=== PATIENT | female | born 1970 | race Caucasian/White ===

== ENCOUNTER → 2020-07-27 14:04 | Outpatient (BNVA) | payer MEDICAID, SELFPAY | PROVIDERS: Family Provider Internal Medicine; Referring Provider Family Medicine; Visit Provider Orthopaedic Surgery | DX: M17.12 Unilateral primary osteoarthritis, left knee (principal); M25.561 Pain in right knee; M25.562 Pain in left knee; G89.29 Other chronic pain | CPT/HCPCS: 73560; 73565 ==

== ENCOUNTER 2020-12-24 20:09 | Emergency (ER) | payer MEDICAID, SELFPAY ==
[2020-12-24 20:23] VITALS: BP 116/59; PULSE 90; RESP 18; TEMP 36.4; O2SAT 97; BMI 33.0
--- NOTE | 2020-12-24 20:57 | W.ED.SKABFB ---
HPI - Skin/Abscess/Foreign Bdy General: Chief complaint: Skin/Abscess/Foreign Body Stated complaint: SORES ON FEET Time Seen by Provider: 12/24/20 20:51 Source: patient Mode of arrival: ambulatory Limitations: no limitations History of Present Illness: HPI narrative: Patient is a 50-year-old female here with multiple medical complaints. History on her is difficult to follow as she often bounces from one topic to another. 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 She is concerned the infection has been dormant and is now re- activated . She has several sores and lesions throughout her entire body that she feels are MRSA lesions. She complains of left knee pain and swelling. She tells me she needs a total knee replacement. She is complaining of right ankle pain stating she has defective hardware. She complains of right shoulder pain. She is convinced she has endocarditis. 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 She has not been running fevers. She does not complain of chest pain or shortness of breath. MD complaint: lesion and other (several complaints ) Onset (ago): day(s) Tetanus up to date: unsure Location: generalized Pain Consistency: constant Relieving factors: none Exacerbating factors: none Context: none Associated symptoms: Reports arthralgias; Deny chills, fever(s), nausea or vomiting Treatments prior to arrival: none Review of Systems Const: Denies: fever(s), chills, body aches, fatigue, malaise or night sweats Eyes: Denies: change in vision Card: Denies: chest pain, palpitations, irregular heart rhythm, edema, lightheadedness, syncope, pre-syncope, dyspnea on exertion or orthopnea Resp: Denies: dyspnea GI: Denies: abdominal pain, nausea or vomiting Musc: Reports: joint pain and joint swelling; Denies: neck pain, back pain, extremity pain or extremity swelling Skin/Breast: Reports: rash, sores and new lesions Neuro: Denies: headache(s), numbness in extremities, weakness in extremities or sensory changes PFS ED PFSH: Medical History Anxiety Chronic pain Surgical History History of abdominal surgery History of ankle surgery Social History Smoking and tobacco status: current some day smoker Alcohol intake: former Physical Exam Const: COMMON NORMALS: no acute distress, patient oriented x3, alert and well nourished EXAM LIMITATIONS: other limitations (psychmotor agitation; pressured speech) GENERAL APPEARANCE: cooperative ORIENTATION/CONSCIOUSNESS: Yes awake, Yes oriented to person, Yes oriented to place and Yes oriented to time HENMT: COMMON NORMALS: normocephalic and atraumatic HEAD & SCALP: normocephalic and atraumatic Chest: COMMONS NORMALS: normal inspection of the chest and normal palpation of entire chest wall Resp: COMMON NORMALS: normal respiratory effort and clear to auscultation bilaterally AUSCULTATION: clear to auscultation bilaterally Cardio: COMMON NORMALS: regular rate and regular rhythm RATE: regular rate RHYTHM: regular rhythm OTHER: no murmur heard Extremity: OTHER: she has mild swelling to her R ankle and L knee; no redness/warmth; good ROM; no concern for septic joint Neuro: COMMON NORMALS: patient oriented x3 SENSORIUM/ORIENTATION: Yes alert, Yes oriented to person, Yes oriented to place and Yes oriented to time Psych: COMMON NORMALS: Normal thought process present APPEARANCE: Yes disheveled ATTITUDE: Yes bizarre ACTIVITY/MOTOR BEHAVIOR: Yes hyperactivity SPEECH: Yes excessive MOOD & AFFECT: Yes euthymic mood THOUGHT PROCESS: Normal thought process present THOUGHT CONTENT: Yes Normal thought content present ATTENTION/CONCENTRATION: Yes attention grossly intact MEMORY/COGNITION: Yes memory grossly intact and Yes cognition grossly intact INSIGHT: Fair insight present (Psych) JUDGEMENT: Fair judgement present (Psych) Skin: NARRATIVE SKIN EXAM: thousands of small scrapes all over patient's body-she tells me she does a lot of gardening; she has a very scabbed lesions to lower extremities; no Osler/Janeway lesions, no splinter hemorrhages, no petechiae noted Course Vital Signs: Vital signs: Vital Signs Temperature 97.5 F L 12/24/20 20:23 Pulse Rate 90 12/24/20 20:23 Respiratory Rate 18 12/24/20 20:23 Blood Pressure 116/59 12/24/20 20:23 Pulse Oximetry 97 12/24/20 20:23 MDM - Skin/Abscess/Foreign Bdy MDM Narrative: Medical decision making narrative: Patient eloped from the ED once stating she went outside to check on her . She was reluctantly allowed to go back to her room. Patient spilled her urine all over the bathroom floor. Lab apparently came and jules patient's labs however they just obtained blood cultures and did not obtain her other labs. When nurse went in to draw these patient became agitated. Patient eloped from the emergency department again. She will be charted off as an elopement. I do not note any clinical symptoms consistent with endocarditis and my suspicion for this is incredibly low. Discharge Plan Discharge Patient Disposition: Left Against Medical Advice Condition: Stable Prescriptions: No Action venlafaxine [Effexor XR] 75 mg capsule,extended release 24hr 75 mg PO QAM Qty: 30 RF: 3 zolpidem [Ambien] 10 mg tablet 10 mg PO .qhs Qty: 30 RF: 2 clonazepam 1 mg tablet 1 mg PO BID 30 Days Qty: 60 RF: 2 Referrals: Lou Abraham MD [Primary Care Provider] - Coding Level of Care Code ED Laminator [employer] for [facility]
== END 2020-12-24 23:40 | disposition left against medical advice (07) ==
PROVIDERS: Emergency Provider Physician Assistant; PCP Family Medicine
DX: L98.9 Disorder of the skin and subcutaneous tissue, unspecified (principal); F17.210 Nicotine dependence, cigarettes, uncomplicated; Z53.21 Procedure and treatment not carried out due to patient leaving prior to being seen by health care provider
CPT/HCPCS: 87040; 99281

== ENCOUNTER 2021-01-05 19:07 | Emergency (ER) | payer MEDICAID, SELFPAY ==
[2021-01-05 19:11] VITALS: BP 124/80; PULSE 78; RESP 18; TEMP 36.7; O2SAT 100; BMI 24.9
--- NOTE | 2021-01-05 19:21 | XR_ITS ---
WS: [id number] Portable AP upright chest, 01/05/2021 Clinical Data: chest pain Comparison: Portable chest, 02/01/2016. Findings: No nodules, masses or effusions are seen. The heart is normal. The pulmonary vascularity is not increased. No pneumonia or pneumothorax is seen. XR/XR chest 1V portable [id number] Impression: Negative chest.
--- NOTE | 2021-01-05 19:21 | ECG_ITS ---
[facility] Test Date: 2021-01-05 Pat Name: Katie Zuniga Department: Room: Gender: Female Card Clothier: : 1970 Requested By: Angelica William Order Number: [id number] Maikel MD: Angella Farah M.D. Measurements Intervals [place] Rate: 70 P: -1 MA: 148 QRS: 68 QRSD: 105 T: 47 QT: 414 QTc: 447 Interpretive Statements SINUS RHYTHM Compared to ECG 02/01/2016 03:30:01 No significant changes Electronically Signed On 01-06-2021 21:44:08 CDT by Angella Farah M.D. [id number]
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
[2021-01-05] MEDS: LORazepam 2 mg/mL INJ 1 mL 0.5 MG IVP (19:51)
[2021-01-05 19:53] VITALS: BP 124/80; PULSE 98; RESP 22; O2SAT 98
[2021-01-05 20:05] LABS: Basophils % 0.5 %; Eosinophils # 0.2 10^3/uL (0.0-0.8); Eosinophils % 2.8 %; Hematocrit 36.7 % (37.0-47.0); Hemoglobin 11.9 g/dL (11.5-15.3); Lymphocytes # 3.2 10^3/uL (0.8-4.8); Lymphocytes % 42.3 %; Mean Corpuscular HGB Conc 32.4 g/dL (30.0-36.0); Mean Corpuscular Hemoglobin 30.7 pg (28.0-34.0); Mean Corpuscular Volume 94.8 fL (81-99); Mean Platelet Volume 10.3 fL (7.4-10.4); Monocytes # 0.7 10^3/uL (0.2-0.9); Monocytes % 9.5 %; Neutrophils # 3.36 10^3/uL (1.8-7.7); Neutrophils % 44.8 %; Nucleated Red Blood Cells % 0 %; Platelet Count 229 10^3/cmm (130-400); Red Blood Count 3.87 10^6/uL (4.1-5.3); Red Cell Distribution Width 12.5 % (12.1-15.1); White Blood Count 7.5 10^3/uL (4.0-10.0)
[2021-01-05 20:22] LABS: Alanine Aminotransferase 15 U/L (0-33); Albumin Level 4.1 g/dL (3.5-5.2); Alkaline Phosphatase 84 IU/L (35-105); Anion Gap 11.8 (5-19); Aspartate Amino Transferase 17 U/L (0-32); Blood Urea Nitrogen 16 mg/dL (6-20); Calcium 8.1 mg/dL (8.5-10.5); Carbon Dioxide 27 mmol/L (22-29); Chloride 100 mmol/L (98-107); Globulin 2.7 g/dL (1.3-4.6); Glomerular Filtration Rate 89.3 mL/min (90-130); Glucose 103 mg/dL (65-115); Osmolality Calculated 281 mOsm/kg (285-295); Potassium 3.8 mmol/L (3.5-5.1); Sodium 135 mmol/L (136-145); Total Bilirubin 0.2 mg/dL (0.15-1.2); Total Protein 6.8 g/dL (6.6-8.7)
[2021-01-05 20:24] LABS: Troponin(5th) Baseline 7 ng/L (0-10)
[2021-01-05] MEDS: ketorolac 30 mg/mL INJ 15 MG IVP (20:24)
[2021-01-05 20:32] VITALS: BP 120/76; PULSE 82; RESP 22; O2SAT 98
[2021-01-05 20:52] VITALS: BP 120/76; PULSE 82; RESP 22; O2SAT 98
--- NOTE | 2021-01-05 21:06 | PC.NURSE ---
[facility] info not given to pt due to pt's denying offer for NPU as witnessed by other staff. Pt stated if I am told that I need to go to the stress unit again, I will walk out
== END 2021-01-05 21:04 | disposition home or self-care (01) ==
PROVIDERS: Emergency Provider Physician Assistant; PCP Family Medicine
DX: F43.22 Adjustment disorder with anxiety (principal); Z79.82 Long term (current) use of aspirin; F17.210 Nicotine dependence, cigarettes, uncomplicated
CPT/HCPCS: 71045; 80053; 84484; 85025; 93005; 96374; 96375; 99284; J1885; J2060

== ENCOUNTER 2021-02-19 14:08 | Emergency (ER) | payer MEDICAID, SELFPAY ==
[2021-02-19 14:16] VITALS: BP 166/109; PULSE 95; RESP 20; TEMP 36.7; O2SAT 98; BMI 28.3
--- NOTE | 2021-02-19 14:27 | W.ED.EXTPRO ---
HPI - Extremity Problem General: Chief complaint: Extremity Injury, Lower Stated complaint: left knee pain, possible injury Time Seen by Provider: 02/19/21 14:11 History of Present Illness: HPI Narrative: Patient is a 50-year-old female comes to the ED with left knee pain. Patient says she has been having chronic left knee pain due to arthritis for couple years now. She denies any acute trauma or injury to cause pain. Patient says she went to an emergency department a couple days ago to check her knee and they also did not ultrasound to check for blood clots and she was negative for any blood clots. She is currently in the process of getting set up with an orthopedic doctor to evaluate her left knee. Patient says she takes [id number] Tylenol or ibuprofen for pain. Associated symptoms: Deny chest pain, fever(s) or rash Review of Systems Const: Denies: fever(s), chills or fatigue Eyes: Denies: change in vision or eye discomfort ENMT: Denies: throat pain, odynophagia, nasal discharge or nasal congestion Card: Denies: chest pain, palpitations, edema, swelling of feet/ankles, dyspnea on exertion or orthopnea Resp: Denies: dyspnea, productive cough or non-productive cough GI: Denies: abdominal pain, nausea, vomiting, diarrhea, constipation or hematochezia : Denies: flank pain, dysuria or hematuria Musc: Reports: extremity pain (left knee pain); Denies: neck pain, back pain or extremity swelling Skin/Breast: Denies: rash or new lesions Neuro: Denies: headache(s), numbness in extremities or weakness in extremities [facility] ED PFSH: Medical History Anxiety Chronic pain Surgical History History of abdominal surgery History of ankle surgery Social History Smoking and tobacco status: current some day smoker Alcohol intake: former Physical Exam Narrative: EXAM NARRATIVE: Patient is a 50-year-old female who is crying and rolling around on exam bed in pain. Const: COMMON NORMALS: patient oriented x3 and alert GENERAL APPEARANCE: in distress (Patient is currently crying and rolling around on exam bed and pain.) HENMT: COMMON NORMALS: normocephalic HEAD & SCALP: normocephalic MOUTH: Normal oral and palatal mucosa present THROAT: posterior oropharynx normal and uvula midline Neck/C-Spine: COMMON NORMALS: supple GENERAL: Yes normal visual inspection Resp: COMMON NORMALS: normal respiratory effort, No retractions, No use of accessory muscles and clear to auscultation bilaterally AUSCULTATION: clear to auscultation bilaterally Cardio: COMMON NORMALS: regular rate, regular rhythm, S1 normal heart sound present, S2 normal heart sound present, No gallops present (Cardio), No clicks present (Cardio), No murmurs present (Cardio) and Peripheral pulses 2+ throughout RATE: regular rate RHYTHM: regular rhythm HEART SOUNDS: S1 normal heart sound present and S2 normal heart sound present PERIPHERAL PULSES: Peripheral pulses 2+ throughout GI: COMMON NORMALS: Normal to inspection, nondistended, normoactive bowel sounds present, Soft to palpation, non-tender and no masses PALPATION: Yes Soft to palpation : COMMON NORMALS: Yes no CVA tenderness BLADDER/KIDNEY EXAM: Yes no CVA tenderness Back/Pelvis: COMMON NORMALS: no CVA tenderness Extremity: COMMON NORMALS: normal to inspection Neuro: COMMON NORMALS: patient oriented x3 and moves all extremities SENSORIUM/ORIENTATION: Yes alert Skin: GENERAL SKIN EXAM: dry skin Course Vital Signs: Vital signs: Vital Signs Temperature 98.0 F 02/19/21 14:16 Pulse Rate 95 02/19/21 14:16 Respiratory Rate 20 H 02/19/21 16:32 Blood Pressure 166/109 02/19/21 14:16 Pulse Oximetry 98 02/19/21 14:16 MDM - Extremity (Nontraumatic) MDM Narrative: Medical decision making narrative: Patient is a 50-year-old female comes to the ED with chronic left knee pain. Denies any acute injury or trauma. Left knee x-ray showed no acute fractures, but multi compartment degenerative disease. Patient was discharged home with crutches and I placed an order with case management for patient to be referred to orthopedic doctor. Patient diagnosed with osteoarthritis of left knee and discharged home with a prescription for meloxicam. Return to ED precautions given. Follow-up with PCP in 7 to 10 days reevaluation. I told patient that residential case manager only contacting them in the next several days to set up an appoint with orthopedic doctor. Patient understood agree with plan. Imaging Data^: Xray Ortho: Attestation: I personally reviewed and interpreted this imaging study as follows: My impression: Left knee x-ray?patient has significant osteoarthritis of the left knee. No acute fractures seen. Radiologist's impression: [id number] [facility]van[facility].[place], [place] [address]TOsv ReportSigned Patient: Katie Zuniga #: [id number]: 1970Acct#:[id number]/Sex: 50 / FADM Date: 02/19/21Loc: ERRoom/Bed:Attending Dr: Ordering Provider/Ordering MD: Rich Akers Date of Service: 02/19/21 Procedure(s): XR knee LT 3V* 19094 Accession Number(s): [id number] Report Number: [id number] PROCEDURE INFORMATION: Exam: XR Left Knee Exam date and time: 02/19/2021 2:44 PM Age: 50 years old Clinical indication: Pain; Knee; Left; Additional info: Left knee pain TECHNIQUE: Imaging protocol: XR Left knee. Views: 3 views. COMPARISON: CR XR knees AP WB w BI lmt ORTH 07/27/2020 2:10 PM FINDINGS: Bones/joints: Prominent narrowing of the lateral knee joint as before; small subchondral defects along this joint possibly increased since before. Continued spurring along multiple joint margins. Probable geode in the tibia along the tibiofibular joint. Probable evidence of a small amount of joint fluid on the oblique lateral image. No dislocation or suggestion of a fracture. Soft tissues: No acute finding. XR/XR knee LT 3V* [id number] IMPRESSION: No acute fracture. Multi-compartment degenerative disease again evident. Dictated By:Jenny Mueller MDSigned By:Jenny Mueller MDSigned Date/Time:02/20/21703DD/ 07 Discharge Plan Discharge Patient Disposition: Home Clinical Impression: Osteoarthritis of left knee Qualifiers: Osteoarthritis type: primary Qualified Code(s): M17.12 - Unilateral primary osteoarthritis, left knee Condition: Stable Prescriptions: New meloxicam 15 mg tablet 15 mg PO DAILY Qty: 20 RF: 0 No Action clonazepam 1 mg tablet 1 mg PO BID@1000,1800 Qty: 60 RF: 0 methylprednisolone [Medrol (Justin)] 4 mg tablets,dose pack See Rx Instructions PO PER PKG DIR Qty: 21 RF: 0 triamcinolone acetonide 0.1 % cream 1 applic topical TID Qty: 453.6 RF: 0 Ambien 10 mg tablet 10 mg PO BEDTIME@2100 Qty: 30 RF: 0 Tylenol 325 mg Tablet 325 - 650 mg PO QID PRN (Reason: Pain) RF: 0 Aspir-81 81 mg Tablet,Delayed Release (Dr/Ec) 81 mg PO DAILY PRN (Reason: Chest Pain) RF: 0 ibuprofen 200 mg Tablet 200 - 400 mg PO Q6H PRN (Reason: Pain) RF: 0 albuterol sulfate 90 mcg/actuation Hfa Aerosol Inhaler 2 puff INHALATION Q6H PRN (Reason: copd) RF: 0 Benadryl See Rx Instructions .ROUTE .COMPLEX RF: 0 Effexor XR 75 mg capsule,extended release 24hr 75 mg PO DAILY@1000 RF: 0 Discharge Orders: Discharge ED (Routine); Ordered 02/19/21 Ordered By: Rich Akers Referrals: Lou Abraham MD [Primary Care Provider] - Discharge Diet: Regular Discharge Activity: Increase activity as tolerated and Use walker/crutches as instructed Patient Instructions: Osteoarthritis (ED), Knee Pain (ED) Activity Restrictions/Additional Instructions: Follow-up with medical provider as directed. lift manager will be contacting you in the next several days set up an appointment with orthopedic doctor for evaluation. Take medications as prescribed. Use crutches to help with knee pain. Ice and elevate left knee. Return to the ER or your medical provider if condition worsens. Please read and understand discharge instructions. Thank you for choosing [facility] for your healthcare needs today. Please realize this is an emergency room and that we are providing you with a medical screening exam and this may not be complete and all inclusive of all the testing and or work up that you may need to determine your ailment or severity of your illness. It is very important that you follow up as instructed or that you return to the Emergency Department should you have concerns or if your condition changes or worsens in any way. 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
--- NOTE | 2021-02-19 14:37 | XRR_ITS ---
PROCEDURE INFORMATION: Exam: XR Left Knee Exam date and time: 02/19/2021 2:44 PM Age: 50 years old Clinical indication: Pain; Knee; Left; Additional info: Left knee pain TECHNIQUE: Imaging protocol: XR Left knee. Views: 3 views. COMPARISON: CR XR knees AP WB w BI lmt ORTH 07/27/2020 2:10 PM FINDINGS: Bones/joints: Prominent narrowing of the lateral knee joint as before; small subchondral defects along this joint possibly increased since before. Continued spurring along multiple joint margins. Probable geode in the tibia along the tibiofibular joint. Probable evidence of a small amount of joint fluid on the oblique lateral image. No dislocation or suggestion of a fracture. Soft tissues: No acute finding. XR/XR knee LT 3V* [id number] IMPRESSION: No acute fracture. Multi-compartment degenerative disease again evident.
[2021-02-19] MEDS: HYDROcodone-acetaminophen 7.5-325 mg Tablet 1 TAB PO (14:41)
[2021-02-19 15:21] VITALS: RESP 20
[2021-02-19 16:32] VITALS: RESP 20
--- NOTE | 2021-02-22 10:45 | DCPLANNER ---
manager of creative services had message to schedule a follow up appointment for patient with ortho for significant arthritis in his left knee. manager of creative services called the ortho clinic, spoke with Lou, gave clinic patients information. manager of creative services was told that patients information would be printed and reviewed. Clinic will call patient with appointment information.
--- NOTE | 2021-03-01 15:10 | DCPLANNER ---
trauma manager called the ortho clinic, spoke with Pilar to confirm if a follow up appointment had been scheduled for patient. trauma manager was told that clinic, called patient and left a voicemail for patient. trauma manager called phone number [phone], unable to speak with patient, a voicemail was left for patient to return rehabilitation caseworker phone call.
== END 2021-02-19 16:33 | disposition home or self-care (01) ==
PROVIDERS: Emergency Provider Physician Assistant; PCP Family Medicine
DX: M17.12 Unilateral primary osteoarthritis, left knee (principal); Z79.82 Long term (current) use of aspirin; F17.210 Nicotine dependence, cigarettes, uncomplicated
CPT/HCPCS: 73562; 99283

== ENCOUNTER 2021-06-04 11:38 | Emergency (ER) | payer MEDICAID, SELFPAY ==
[2021-06-04 11:43] VITALS: BP 118/75; PULSE 92; RESP 16; TEMP 36.9; O2SAT 97; BMI 32.1
--- NOTE | 2021-06-04 12:01 | ED_ITS ---
HPI - Anxiety General: Chief Complaint: Psychiatric Symptoms Stated Complaint: PSYCH EVAL Time Seen by Provider: 06/04/21 11:42 Source: patient and EMS Mode of arrival: EMS Limitations: no limitations History of Present Illness: HPI narrative: Patient is a 50-year-old female who presents to ED today via EMS for complaints of anxiety stating that her clonazepam medication was stolen. Patient states her and her got into a verbal altercation and he made her feel crazy . She states she is not sure who contacted police/EMS but states they decided to bring her in for psychiatric evaluation. Patient tells me she is not acutely suicidal or homicidal with no plan of self harming. She answered no on all of her triage psychiatric assessment questions. Patient has a counselor that she sees as an outpatient for her anxiety. complaint: anxiety Onset (ago): hour(s) Severity: moderate Quality: intermittent Place: home History of similar episodes: Yes Provoking factors: emotional stress Associated symptoms: Deny chest pain, chills, fever(s), headache(s), nausea, palpitations, syncope or vomiting Review of Systems Const: Denies: fever(s) or chills Card: Denies: chest pain, palpitations, lightheadedness or syncope Resp: Denies: dyspnea GI: Denies: abdominal pain, nausea, vomiting or diarrhea Musc: Denies: neck pain, back pain, extremity pain or joint pain Skin/Breast: Denies: rash Neuro: Denies: headache(s) Psych: Reports: anxiety; Denies: depression, loss of interest, irritability, paranoia, visual hallucinations, auditory hallucinations, suicidal ideation or homicidal ideation [facility] ED PFSH: Medical History Anxiety Asthma Chronic pain COPD (chronic obstructive pulmonary disease) Dyslipidemia Endocarditis BRAEDEN (generalized anxiety disorder) Hep C w/ coma, chronic Surgical History History of abdominal surgery History of ankle surgery Social History Smoking and tobacco status: current every day smoker Alcohol intake: former Physical Exam Const: COMMON NORMALS: no acute distress, average body habitus, patient oriented x3, no limitations, alert and well nourished GENERAL APPEARANCE: cooperative and disheveled ORIENTATION/CONSCIOUSNESS: Yes awake, Yes oriented to person, Yes oriented to place and Yes oriented to time HENMT: COMMON NORMALS: normocephalic and atraumatic HEAD & SCALP: normocephalic and atraumatic Neck/C-Spine: COMMON NORMALS: full ROM CERVICAL SPINE: No pain with cervical ROM, No Cervical spine tenderness and No step off deformity Resp: COMMON NORMALS: normal respiratory effort and clear to auscultation bilaterally AUSCULTATION: clear to auscultation bilaterally Cardio: COMMON NORMALS: regular rate and regular rhythm RATE: regular rate RHYTHM: regular rhythm Back/Pelvis: COMMON NORMALS: thoracic and lumbar spine normal to inspection, no thoracic nor lumbar tenderness and thoraco-lumbar ROM normal Extremity: COMMON NORMALS: normal to inspection and full ROM GENERAL: Yes normal exam except as noted Neuro: ABRIL COMA SCALE: document GCS findings Abril coma scale eye opening: Spontaneous [place] coma scale verbal response: Orientated Abril coma scale motor response: Obey commands Abril coma scale total score: 15 COMMON NORMALS: patient oriented x3, CN's II-XII intact bilaterally, moves all extremities, no focal motor deficits, no sensory deficits noted and gait normal SENSORIUM/ORIENTATION: Yes alert, Yes oriented to person, Yes oriented to place and Yes oriented to time Psych: COMMON NORMALS: mental status grossly normal, Normal thought process present, cooperative, normal affect, speech normal, activity/motor behavior normal, denies hallucinations, denies homicidal ideation and denies suicidal ideation APPEARANCE: Yes grossly normal ATTITUDE: Yes calm ACTIVITY/MOTOR BEHAVIOR: Yes appropriate eye contact SPEECH: Yes normal speech MOOD & AFFECT: Yes euthymic mood THOUGHT PROCESS: Normal thought process present THOUGHT CONTENT: Yes Normal thought content present ATTENTION/CONCENTRATION: Yes attention grossly intact and Yes concentration grossly intact MEMORY/COGNITION: Yes memory grossly intact and Yes cognition grossly intact INSIGHT: Good insight present (Psych) JUDGEMENT: Good judgement present (Psych) Skin: COMMON NORMALS: no rashes or lesions noted GENERAL SKIN EXAM: no rashes or lesions noted TRAUMA: no lacerations or abrasions Course Vital Signs: Vital signs: Vital Signs Temperature 98.4 F 06/04/21 11:43 Pulse Rate 92 06/04/21 11:43 Respiratory Rate 16 06/04/21 11:43 Blood Pressure 118/75 06/04/21 11:43 Pulse Oximetry 97 06/04/21 11:43 MDM - Anxiety MDM Narrative: Medical decision making narrative: Patient is not acutely suicidal or homicidal. She is not psychotic. She does not meet criteria for inpatient hospitalization. Recommend filing a police report in regards to the stolen medication. She states her PCP Dr. Abraham prescribes this medication. Recommend she contact them on Sunday to schedule a follow-up visit for refill. I will give her one week worth of medication to give her time to get this appointment. Recommend she contact her counselor on Sunday to schedule visit as well. Strict return to ED precautions given. Patient verbalizes understanding. Discharge Plan Discharge Patient Disposition: Home Clinical Impression: Anxiety, Encounter for medication refill Condition: Stable Prescriptions: Continued clonazepam 1 mg tablet 1 mg PO BID@1000,1800 Qty: 14 RF: 0 No Action albuterol sulfate 90 mcg/actuation HFA aerosol inhaler 2 puff INHALATION Q6H PRN (Reason: copd) Qty: 8.5 RF: 2 Effexor XR 75 mg capsule,extended release 24hr 75 mg PO DAILY@1000 Qty: 30 RF: 3 Ambien 10 mg tablet 10 mg PO BEDTIME@2100 Qty: 30 RF: 3 triamcinolone acetonide 0.1 % cream 1 applic topical TID Qty: 453.6 RF: 0 Tylenol 325 mg Tablet 325 - 650 mg PO QID PRN (Reason: Pain) RF: 0 Aspir-81 81 mg Tablet,Delayed Release (Dr/Ec) 81 mg PO DAILY PRN (Reason: Chest Pain) RF: 0 ibuprofen 200 mg Tablet 200 - 400 mg PO Q6H PRN (Reason: Pain) RF: 0 Benadryl See Rx Instructions .ROUTE .COMPLEX RF: 0 meloxicam 15 mg tablet 15 mg PO DAILY Qty: 20 RF: 0 Discharge Orders: Discharge ED (Routine); Ordered 06/04/21 Ordered By: Angelica William Referrals: Lou Abraham MD [Primary Care Provider] - Activity Restrictions/Additional Instructions: As we discussed you are not acutely suicidal, homicidal, or psychotic and therefore do not meet criteria for emergent inpatient hospitalization. You need to file a police report for your stolen medications. I have given you a week prescription of your clonazepam. You need to contact your primary care provider who prescribes this medication on Sunday to schedule a visit for refill. You need to contact your counselor as soon as possible for therapy regarding your anxiety. You need to contact 911 or return to the emergency department immediately for any thoughts of wanting to harm yourself or harming others. 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
[2021-06-04 12:26] VITALS: BP 112/85; PULSE 93; O2SAT 98
== END 2021-06-04 12:31 | disposition home or self-care (01) ==
PROVIDERS: Emergency Provider Physician Assistant; PCP Family Medicine
DX: F41.9 Anxiety disorder, unspecified (principal); Z76.0 Encounter for issue of repeat prescription; Z79.82 Long term (current) use of aspirin; J44.9 Chronic obstructive pulmonary disease, unspecified; E78.5 Hyperlipidemia, unspecified; Z86.19 Personal history of other infectious and parasitic diseases; F17.210 Nicotine dependence, cigarettes, uncomplicated
CPT/HCPCS: 99281

== ENCOUNTER → 2022-04-06 13:56 | Outpatient (BNVA) | payer MEDICAID, SELFPAY | PROVIDERS: PCP Family Medicine; Visit Provider Orthopaedic Surgery | DX: Z01.812 Encounter for preprocedural laboratory examination (principal) | CPT/HCPCS: 81000 ==

== ENCOUNTER 2022-04-22 13:00 | Emergency (ER) | payer MEDICAID, SELFPAY ==
[2022-04-22 13:05] VITALS: BP 153/76; PULSE 106; RESP 22; TEMP 36.8; O2SAT 98; BMI 43.9
--- NOTE | 2022-04-22 13:13 | XRR_ITS ---
PROCEDURE INFORMATION: Exam: XR Left Knee Exam date and time: 04/22/2022 1:23 PM Age: 51 years old Clinical indication: Prior surgery; Surgery type: Tka; Patient HX: Pain left knee, post op total knee TECHNIQUE: Imaging protocol: Radiologic exam of the Left knee. Views: 3 views. COMPARISON: CR XR knee LT 3V* [id number] 02/19/2021 2:50 PM FINDINGS: Bones/joints: Metallic knee replacement is present in good position. There is no evidence of loosening. [place] bones do not show focal abnormality. Soft tissues: Unremarkable XR/XR knee LT 3V* [id number] IMPRESSION: 1. Metallic knee replacement in good position. 2. Otherwise negative examination.
[2022-04-22] MEDS: morphine 4 mg/mL SDV 1 mL IVP (13:35)
[2022-04-22] MEDS: ondansetron 2 mg/ML SDV 2 mL 4 MG IVP (13:35)
[2022-04-22 13:36] VITALS: BP 112/88; PULSE 90; RESP 16; O2SAT 95
--- NOTE | 2022-04-22 13:57 | ED_ITS ---
HPI - Extremity Problem General: Chief complaint: Extremity Problem,Nontraumatic Stated complaint: LEFT KNEE PAIN S/P SURGERY Time Seen by Provider: 04/22/22 13:02 Source: patient Mode of arrival: ambulatory Limitations: no limitations History of Present Illness: 51-year-old female presents emergency room with complaint of leg pain and swelling and discomfort to her left leg she previously had a knee arthroplasty done just very recently she still has a wound VAC type dressing in place. She states she twisted it as severe pain now. She also feels like it swollen and reports having had a fever at home. She does not have a fever on arrival here she not having any shortness of breath no chest dis comfort. MD Complaint: extremity pain and extremity swelling Onset (ago): hour(s) Pain Consistency: constant Location: left Quality: aching and sharp Radiation: distal Relieving factors: nothing Exacerbating factors: nothing Associated symptoms: Reports fever(s); Deny chest pain or rash Review of Systems Const: Reports: fever(s) and chills; Denies: body aches, change in appetite, fatigue or malaise ENMT: Denies: throat pain, ear or mastoid pain, nasal discharge or nasal congestion Card: Denies: chest pain, palpitations, edema, dyspnea on exertion or orthopnea Resp: Denies: dyspnea, productive cough or non-productive cough GI: Denies: abdominal pain, nausea, vomiting, hematemesis, coffee ground emesis, diarrhea, constipation, bloating, hematochezia or melena : Denies: flank pain, difficulty voiding, dysuria, urinary frequency or urinary urgency Skin/Breast: Denies: rash or pruritus PFSH ED PFSH: Medical History Anxiety Asthma Chronic pain COPD (chronic obstructive pulmonary disease) Dyslipidemia Endocarditis BRAEDEN (generalized anxiety disorder) Hep C w/ coma, chronic Surgical History History of abdominal surgery History of ankle surgery Social History Smoking and tobacco status: current every day smoker Alcohol intake: former Physical Exam Const: COMMON NORMALS: no acute distress GENERAL APPEARANCE: cooperative and comfortable ORIENTATION/CONSCIOUSNESS: Yes awake, Yes oriented to person, Yes oriented to place and Yes oriented to time HENMT: COMMON NORMALS: normocephalic, atraumatic and hearing grossly normal bilaterally HEAD & SCALP: normocephalic and atraumatic Resp: COMMON NORMALS: normal respiratory effort, No retractions, No use of accessory muscles and clear to auscultation bilaterally AUSCULTATION: clear to auscultation bilaterally Cardio: COMMON NORMALS: regular rate, regular rhythm and No murmurs present (Cardio) RATE: regular rate RHYTHM: regular rhythm GI: COMMON NORMALS: Soft to palpation and No hepatosplenomegaly present AUSCULTATION: Yes normoactive bowel sounds PALPATION: Yes Soft to palpation, No Tenderness to palpation present (GI), No Guarding due to palpation present (GI) and Yes No hepatosplenomegaly present Extremity: OTHER: Moderate swelling no redness no erythema no drainage from leg wound on the left. Neuro: SENSORIUM/ORIENTATION: Yes oriented to person, Yes oriented to place and Yes oriented to time Skin: COMMON NORMALS: no rashes or lesions noted GENERAL SKIN EXAM: no rashes or lesions noted Course Vital Signs: Vital signs: Vital Signs Temperature 98.2 F 04/22/22 13:05 Pulse Rate 85 04/22/22 15:20 Respiratory Rate 16 04/22/22 15:20 Blood Pressure 114/78 04/22/22 15:20 Pulse Oximetry 94 04/22/22 15:20 Oxygen Delivery Me thod 04/22/22 15:20 MDM - Extremity (Nontraumatic) Medical Decision Making Labs imaging and EKG reviewed. Patient has no signs of infection on physical ex am white count is normal she reports a fever but objectively her temp is normal at this time. Would not recommend antibiotics given there is no objective findings of infection she does have cultures we will contact her with those were come back positive. I did attempt to contact her surgeon but evidently did not have a way to be available for discussion through the [facility] system we tried to call their office and there was no answer and no forwarding. Asked her to contact her doctors and she is able next week. Return instructions given. Medical Records I reviewed the patient's medical records. Lab Data I reviewed the patient's lab results. : 04/22/22 14:06 04/22/22 14:06 Radiology Impressions Knee X-Ray 04/22/22 13:13 IMPRESSION: 1. Metallic knee replacement in good position. 2. Otherwise negative examination. Venous Duplex 04/22/22 14:30 IMPRESSION: No evidence of deep vein thrombosis. Laboratory Results WBC 6.7 10^3/uL (4.0-10.0) 04/22/22 14:06 RBC 2.92 10^6/uL (4.1-5.3) L 04/22/22 14:06 Hgb 9.0 g/dL (11.5-15.3) L 04/22/22 14:06 Hct 26.7 % (37.0-47.0) L 04/22/22 14:06 MCV 91.4 fl (81-99) 04/22/22 14:06 MCH 30.8 pg (28.0-34.0) 04/22/22 14:06 MCHC 33.7 g/dL (30.0-36.0) 04/22/22 14:06 RDW 13.6 % (12.1-15.1) 04/22/22 14:06 Plt Count 238 10^3/cmm (130-400) 04/22/22 14:06 MPV 10.1 fL (7.4-10.4) 04/22/22 14:06 Neut % (Auto) 56.1 % 04/22/22 14:06 Lymph % (Auto) 29.6 % 04/22/22 14:06 [place] % (Auto) 12.4 % 04/22/22 14:06 Eos % (Auto) 1.2 % 04/22/22 14:06 Baso % (Auto) 0.3 % 04/22/22 14:06 Neut # (Auto) 3.76 10^3/uL (1.8-7.7) 04/22/22 14:06 Lymph # (Auto) 2.0 10^3/uL (0.8-4.8) 04/22/22 14:06 [place] # (Auto) 0.8 10^3/uL (0.2-0.9) 04/22/22 14:06 Eos # (Auto) 0.1 10^3/uL (0.0-0.8) 04/22/22 14:06 Baso # (Auto) 0.0 10^3/uL (0.0-0.1) 04/22/22 14:06 Nucleated RBC % (auto) 0 % 04/22/22 14:06 Nucleated RBCs # 0.0 /100WBC 04/22/22 14:06 Sodium 140 mmol/L (136-145) 04/22/22 14:06 Potassium 4.2 mmol/L (3.5-5.1) 04/22/22 14:06 Chloride 103 mmol/L (98-107) 04/22/22 14:06 Carbon Dioxide 26 mmol/L (22-29) 04/22/22 14:06 Anion Gap 15.2 (5-19) 04/22/22 14:06 BUN 13 mg/dL (6-20) 04/22/22 14:06 Creatinine 0.8 mg/dL (0.5-0.9) 04/22/22 14:06 GFR Calculation 76.2 mL/min (90-130) L 04/22/22 14:06 Glucose 107 mg/dL (65-115) 04/22/22 14:06 Calculated Osmolality 291 mOsm/kg (285-295) 04/22/22 14:06 Calcium 9.0 mg/dL (8.5-10.5) 04/22/22 14:06 Urine Color Yellow (Yellow) 04/22/22 14:09 Urine Appearance Clear (CLEAR) 04/22/22 14:09 Urine pH 6.5 (5-7) 04/22/22 14:09 Ur Specific [place] 1.015 (1.005-1.030) 04/22/22 14:09 Urine Protein Neg (Negative) 04/22/22 14:09 Urine Glucose (UA) Norm (Normal) 04/22/22 14:09 Urine Ketones Negative (Negative) 04/22/22 14:09 Urine Blood Neg (Negative) 04/22/22 14:09 Urine Nitrate Negative (Negative) 04/22/22 14:09 Urine Bilirubin 1+ (Negative) H 04/22/22 14:09 Urine Urobilinogen 1 mg/dL (Negative) H 04/22/22 14:09 Ur Leukocyte Esterase Negative (Negative) 04/22/22 14:09 Discharge Plan Discharge Patient Disposition: Home Clinical Impression: Knee pain, S/P total knee arthroplasty, Fever Condition: Stable Prescriptions: No Action albuterol sulfate 90 mcg/actuation HFA aerosol inhaler 2 puff INHALATION Q6H PRN (Reason: copd) Qty: 8.5 2RF buspirone 7.5 mg tablet 7.5 mg PO BID Qty: 60 1RF hydrocodone-acetaminophen 5-325 mg tablet 1 tab PO TID PRN (Reason: pain) 20 Days Qty: 60 0RF Tylenol 325 mg Tablet 325 - 650 mg PO QID PRN (Reason: Pain) ibuprofen 200 mg Tablet 200 - 400 mg PO Q6H PRN (Reason: Pain) Benadryl See Rx Instructions .ROUTE .COMPLEX Rx Instructions: use as needed for hives Discharge Orders: Discharge ED (Routine); Ordered 04/22/22 Ordered By: Thompson Salazar Referrals: Lou Abraham MD [Primary Care Provider] - Discharge Diet: Usual diet Discharge Activity: Limit activity as instructed Patient Instructions: Opioid Safety Activity Restrictions/Additional Instructions: Continue same postop instructions from your orthopedic surgeon. Pain medications as per their prescription. Blood cultures were done on lab work drawn today. Given your white count is normal and you are not currently running a fever would hold off on any antibiotics until cultures came back positive. You should contact your orthopedic surgeon as soon as possible on Sunday. Coding Level of Care Code ED [employer] Exam Detailed
[2022-04-22 14:17] LABS: Basophils % 0.3 %; Eosinophils # 0.1 10^3/uL (0.0-0.8); Eosinophils % 1.2 %; Hematocrit 26.7 % (37.0-47.0); Lymphocytes % 29.6 %; Mean Corpuscular HGB Conc 33.7 g/dL (30.0-36.0); Mean Corpuscular Hemoglobin 30.8 pg (28.0-34.0); Mean Corpuscular Volume 91.4 fl (81-99); Mean Platelet Volume 10.1 fL (7.4-10.4); Monocytes # 0.8 10^3/uL (0.2-0.9); Monocytes % 12.4 %; Neutrophils # 3.76 10^3/uL (1.8-7.7); Neutrophils % 56.1 %; Nucleated Red Blood Cells % 0 %; Platelet Count 238 10^3/cmm (130-400); Red Blood Count 2.92 10^6/uL (4.1-5.3); Red Cell Distribution Width 13.6 % (12.1-15.1); White Blood Count 6.7 10^3/uL (4.0-10.0)
[2022-04-22 14:23] LABS: Add Urine Microscopic? NO; Charge for UA Resulting for Rev
--- NOTE | 2022-04-22 14:30 | USR_ITS ---
PROCEDURE INFORMATION: Exam: US Duplex Left Lower Extremity Veins, Limited Exam date and time: 04/22/2022 2:43 PM Age: 51 years old Clinical indication: Pain; Leg, lower; Left; Prior surgery; Surgery date: <1 month; Additional info: Post op leg pain TECHNIQUE: Imaging protocol: Real-time Duplex ultrasound of the Left Lower Extremity with 2-D beyer scale, color Doppler flow and spectral waveform analysis with image documentation. Limited exam focused on the left lower extremity veins. COMPARISON: CR (LOW EXM, ) 04/22/2022 1:23 PM FINDINGS: Left deep veins: Unremarkable. The common femoral, femoral, proximal profunda femoral and popliteal veins are patent without thrombus. Normal Doppler waveforms. Normal compressibility and/or augmentation response. Left superficial veins: Unremarkable. Saphenofemoral junction is patent without thrombus. Soft tissues: Unremarkable. US/[place] [id number] IMPRESSION: No evidence of deep vein thrombosis.
[2022-04-22 14:40] LABS: Bilirubin Urine 1+ (Negative); Blood Urine Neg (Negative); Glucose Urine UA Norm (Normal); Ketones Urine Negative (Negative); Nitrate Urine Negative (Negative); Protein Urine Neg (Negative); Specific Gravity, Urine 1.015 (1.005-1.030); Urine Appearance Clear (CLEAR); Urine Color Yellow (Yellow); Urobilinogen Urine 1 mg/dL (Negative); pH Urine 6.5 (5-7)
[2022-04-22 14:41] LABS: Leukocyte Esterase Urine Negative (Negative)
[2022-04-22 14:47] LABS: Anion Gap 15.2 (5-19); Blood Urea Nitrogen 13 mg/dL (6-20); Carbon Dioxide 26 mmol/L (22-29); Chloride 103 mmol/L (98-107); Glomerular Filtration Rate 76.2 mL/min (90-130); Glucose 107 mg/dL (65-115); Osmolality Calculated 291 mOsm/kg (285-295); Potassium 4.2 mmol/L (3.5-5.1); Sodium 140 mmol/L (136-145)
[2022-04-22] MEDS: HYDROcodone-acetaminophen 5-325 mg Tablet 2 TAB PO (15:08)
[2022-04-22 15:20] VITALS: BP 114/78; PULSE 85; RESP 16; O2SAT 94
== END 2022-04-22 16:14 | disposition home or self-care (01) ==
PROVIDERS: Emergency Provider Family Medicine; PCP Family Medicine
DX: M25.562 Pain in left knee (principal); R50.9 Fever, unspecified; Z96.652 Presence of left artificial knee joint; J44.9 Chronic obstructive pulmonary disease, unspecified; E78.5 Hyperlipidemia, unspecified; Z86.19 Personal history of other infectious and parasitic diseases; F17.210 Nicotine dependence, cigarettes, uncomplicated
CPT/HCPCS: 73562; 80048; 81003; 85025; 87040; 93971; 96374; 96375; 99285; J2270; J2405

== ENCOUNTER 2022-05-02 06:00 | Outpatient (RCR) | payer MEDICAID, SELFPAY | END 2022-05-17 23:59 | disposition home or self-care (01) | LOC: TPT 06:00 | PROVIDERS: PCP Family Medicine; Visit Provider Orthopaedic Surgery | DX: Z47.1 Aftercare following joint replacement surgery (principal); Z96.652 Presence of left artificial knee joint | CPT/HCPCS: 97110; 97163 ==

== ENCOUNTER 2022-05-18 06:00 | Outpatient (RCR) | payer MEDICAID, SELFPAY | END 2022-06-16 23:59 | disposition home or self-care (01) | LOC: TPT 06:00 | PROVIDERS: PCP Family Medicine; Visit Provider Orthopaedic Surgery | DX: Z47.1 Aftercare following joint replacement surgery (principal); Z96.652 Presence of left artificial knee joint | CPT/HCPCS: 97110; 97140 ==

== ENCOUNTER → 2022-05-24 13:50 | Outpatient (BNVA) | payer MEDICAID, SELFPAY | PROVIDERS: PCP Family Medicine; Visit Provider Nurse Practitioner Family | DX: M54.9 Dorsalgia, unspecified (principal); R30.0 Dysuria | CPT/HCPCS: 81000; 87491; 87591; 87661 ==

== ENCOUNTER 2022-06-17 06:00 | Outpatient (RCR) | payer MEDICAID, SELFPAY | END 2022-07-17 23:59 | disposition home or self-care (01) | LOC: TPT 06:00 | PROVIDERS: PCP Family Medicine; Visit Provider Orthopaedic Surgery | DX: Z47.1 Aftercare following joint replacement surgery (principal); Z96.652 Presence of left artificial knee joint | CPT/HCPCS: 97110 ==

== ENCOUNTER → 2022-08-03 12:48 | Outpatient (BNVA) | payer MEDICAID, SELFPAY | PROVIDERS: PCP Family Medicine; Visit Provider Nurse Practitioner Family | DX: F41.9 Anxiety disorder, unspecified (principal); F32.9 Major depressive disorder, single episode, unspecified; F41.0 Panic disorder [episodic paroxysmal anxiety]; R30.0 Dysuria; J44.9 Chronic obstructive pulmonary disease, unspecified; E78.5 Hyperlipidemia, unspecified; G47.00 Insomnia, unspecified; F41.1 Generalized anxiety disorder; J45.909 Unspecified asthma, uncomplicated; N95.1 Menopausal and female climacteric states; E66.9 Obesity, unspecified; M79.10 Myalgia, unspecified site; R41.3 Other amnesia | CPT/HCPCS: 80053; 80061; 82306; 82607 ==

== ENCOUNTER → 2023-01-02 14:12 | Outpatient (BNVA) | payer MEDICAID, SELFPAY | PROVIDERS: PCP Family Medicine; Visit Provider Internal Medicine | DX: R55 Syncope and collapse (principal); I10 Essential (primary) hypertension; R07.9 Chest pain, unspecified; R06.02 Shortness of breath; Z86.79 Personal history of other diseases of the circulatory system; F17.210 Nicotine dependence, cigarettes, uncomplicated | CPT/HCPCS: 93005; 99204 ==

== ENCOUNTER 2023-04-17 17:31 | Emergency (ER) | payer MEDICAID, SELFPAY ==
[2023-04-17 17:44] VITALS: BP 123/87; PULSE 130; RESP 16; TEMP 36.6; O2SAT 97; BMI 31.8
--- NOTE | 2023-04-17 19:04 | XRR_ITS ---
PROCEDURE INFORMATION: Exam: XR Left Hand Exam date and time: 04/17/2023 7:09 PM Age: 52 years old Clinical indication: Injury or trauma; Other: Dog bite; Hand; Left TECHNIQUE: Imaging protocol: Radiologic exam of the left hand. Views: 3 or more views. COMPARISON: No relevant prior studies available. FINDINGS: Bones/joints: The alignment of the joints is anatomic and the joint spaces are maintained. Suspected nondisplaced cortical fracture in the head of the proximal phalanx of the index finger. (series 1003, image 1003) Soft tissues: No radiopaque foreign body is identified. There is soft tissue swelling of the index finger. XR/XR hand LT min 3V* [id number] IMPRESSION: Suspected nondisplaced cortical fracture of the head of the proximal phalanx, index finger with adjacent soft tissue swelling. If this is secondary to a dog bite, this may be an open fracture. Clinical correlation is necessary.
--- NOTE | 2023-04-17 20:49 | ED_ITS ---
HPI - Animal Bite General: Chief Complaint: Animal Bite Stated Complaint: LT arm dog bite Time Seen by Provider: 04/17/23 19:55 History of Present Illness: 52-year-old female presents emergency department chief complaint of getting bitten by her dog about 3-1/2 hours ago she reports her dog is a mix Khmer Pat/pitbull mix patient reports she was bit on her hand while he was fighting with another dog she presents from the [facility] to our ER patient reports the dog's vaccinations are up-to-date. Patient reports presenting with multiple puncture wounds and lacerations to her fingers. Patient reports she did no wound care prior to arrival patient reports concerns of possibly breaking her hand. Associated symptoms: Deny chills, fever(s) or headache(s) Review of Systems General: Reports: 10 or more systems reviewed and unremarkable except in HPI and below Const: Denies: fever(s), chills, fatigue or malaise Eyes: Denies: change in vision or blurry vision Card: Denies: chest pain or palpitations Resp: Denies: dyspnea or productive cough GI: Denies: abdominal pain, nausea or vomiting : Denies: flank pain Musc: Denies: extremity pain or extremity swelling Skin/Breast: Reports: erythema and skin pain; Denies: rash or pruritus Neuro: Denies: headache(s) Psych: Denies: anxiety or depression Celestine/Lymph: Denies: easy bleeding All/Imm: Denies: urticaria, throat swelling or facial swelling PFS ED PFSH: Medical History Anxiety Asthma Chronic pain COPD (chronic obstructive pulmonary disease) Dyslipidemia Endocarditis BRAEDEN (generalized anxiety disorder) Hep C w/ coma, chronic Surgical History History of abdominal surgery History of ankle surgery Social History Smoking and tobacco status: current every day smoker (1PPD) Alcohol intake: former Substance/Drug Use: former Physical Exam Const: COMMON NORMALS: no acute distress, patient oriented x3 and healthy appearing HENMT: COMMON NORMALS: normocephalic and atraumatic HEAD & SCALP: normocephalic and atraumatic Eye: COMMON NORMALS: Equal, round and reactive pupils present and EOMs intact bilaterally PUPIL: Yes Equal, round and reactive pupils present Neck/C-Spine: COMMON NORMALS: full ROM, supple and no JVD Lymph: LYMPHATIC: no lymphadenopathy noted Chest: COMMONS NORMALS: normal inspection of the chest and normal palpation of entire chest wall Resp: COMMON NORMALS: normal respiratory effort, No retractions and clear to auscultation bilaterally EFFORT & INSPECTION: Yes able to speak in complete sentences and Yes symmetric chest movement AUSCULTATION: clear to auscultation bilaterally Cardio: COMMON NORMALS: no JVD, regular rate and regular rhythm RATE: regular rate RHYTHM: regular rhythm GI: COMMON NORMALS: Normal to inspection, nondistended, normoactive bowel sounds present, Soft to palpation and non-tender INSPECTION: Yes normal to inspection PALPATION: Yes Soft to palpation : COMMON NORMALS: Yes no CVA tenderness BLADDER/KIDNEY EXAM: Yes no CVA tenderness Back/Pelvis: COMMON NORMALS: no CVA tenderness Extremity: COMMON NORMALS: normal to inspection and full ROM Neuro: COMMON NORMALS: patient oriented x3, CN's II-XII intact bilaterally, moves all extremities and no focal motor deficits Psych: COMMON NORMALS: mental status grossly normal, Normal thought process present, cooperative and normal affect THOUGHT PROCESS: Normal thought process present Skin: COMMON NORMALS: negative for no rashes or lesions noted (Multiple puncture wounds and superficial lacerations appreciated to left maurice) NARRATIVE SKIN EXAM: Multiple puncture wounds noted with a large hematoma noted dorsal aspect of left hand full range of motion of the thumb appreciated fingers have mild difficulty with movement due to multiple puncture wounds appreciated neurovascularly intact distally GENERAL SKIN EXAM: rashes and/or lesions noted (Multiple puncture wounds and superficial lacerations appreciated to left maurice) Course Vital Signs: Vital signs: Vital Signs Temperature 97.9 F 04/17/23 17:44 Pulse Rate 130 H 04/17/23 17:44 Respiratory Rate 16 04/17/23 17:44 Blood Pressure 123/87 04/17/23 17:44 Pulse Oximetry 97 04/17/23 17:44 Oxygen Delivery Me thod Room Air 04/17/23 17:44 MDM - Animal Bite Medical Decision Making X-ray imaging revealed a questionable first metacarpal fracture on exam there is no overlying laceration to this location. Patient also has what appears to be a index first metacarpal fracture questionable open fracture no obvious puncture wound abrasion as location patient was given IV antibiotics including doxycycline as well as Rocephin emergency department the wounds were thoroughly cleaned by nursing staff which patient was placed into a cock-up wrist splint for comfort did advise that the patient should need to follow-up with her primary care doctor in 2 to 3 days for further assessment and management for repeat wound reevaluation which advised for her to return the interim if any of her symptoms persist or worse. Lab Data Radiology Impressions Hand X-Ray 04/17/23 19:04 IMPRESSION: Suspected nondisplaced cortical fracture of the head of the proximal phalanx, index finger with adjacent soft tissue swelling. If this is secondary to a dog bite, this may be an open fracture. Clinical correlation is necessary. ADDENDUM: 04/17/23 2216 As of 8:30 p.m. on 04/17/2023, Vaishnavi Swenson confirmed that Dr. Gandhi has received the exam report, is aware of the critical finding, and indicated no conference call was necessary to discuss the exam findings. Discharge Plan Discharge Patient Disposition: Home Clinical Impression: Dog bite of extremity, Hand pain, left Condition: Stable Prescriptions: New amoxicillin-pot clavulanate 875-125 mg tablet 1 tab PO Q8H Qty: 30 0RF ketorolac 10 mg tablet 10 mg PO Q8H PRN (Reason: pain) Qty: 10 0RF No Action albuterol sulfate 90 mcg/actuation HFA aerosol inhaler 2 puff INHALATION Q6H PRN (Reason: copd) Qty: 8.5 2RF clonazepam 1 mg tablet 1 mg PO DAILY 30 Days Qty: 30 1RF paroxetine HCl [Paxil] 20 mg tablet 20 mg PO DAILY Qty: 30 2RF hydrocodone-acetaminophen 7.5-300 mg tablet 1 tab PO Q8H PRN triamcinolone acetonide 0.5 % ointment 1 applic topical TID Qty: 15 2RF pramoxine-zinc acetate 1-0.1 % lotion 1 applic topical QID PRN (Reason: skin irritation) Qty: 177 0RF metoprolol tartrate 25 mg tablet 25 mg PO DAILY 30 Days Qty: 30 0RF ibuprofen 200 mg Tablet 200 - 400 mg PO Q6H PRN (Reason: Pain) Benadryl See Rx Instructions .ROUTE .COMPLEX Rx Instructions: use as needed for hives Discharge Orders: Discharge ED (Routine); Ordered 04/17/23 Ordered By: Wes Boswell Referrals: Lou Abraham MD [Primary Care Provider] - 1-3 days (For further wound reevaluation) Discharge Activity: Limit activity as instructed Patient Instructions: Animal Bite (ED), Hand Fracture (ED), Suspected Fracture (ED) Activity Restrictions/Additional Instructions: Please further follow-up your primary care doctor in 2 to 3 days for repeat wound reevaluation and additional care for your hand please take antibiotics and medications as prescribed please keep the wounds clean dry intact and covered until completely healed and please return the interim if any of your symptoms persist or worse. Coding Level of Care Code ED Missing Persons Investigator for Shaw Hawkins
[2023-04-17] MEDS: ketorolac 30 mg/mL INJ 15 MG IVP (21:03)
[2023-04-17] MEDS: sodium chloride 0.9% 500 ML IV (21:03)
[2023-04-17] MEDS: ondansetron 2 mg/ML SDV 2 mL 4 MG IVP (21:03)
[2023-04-17] MEDS: fentaNYL 50 mcg/mL INJ 2mL IVP (21:03)
[2023-04-17] MEDS: cefTRIAXone 1,000 MG in sodium chloride 0.9% (plus) 50 ML 100 MG IV (21:46)
--- NOTE | 2023-04-17 21:56 | PC.NURSE ---
Contacted the [facility] acquisition lead dept regarding the pts dog biting her. Info passed on to the [facility].
[2023-04-17] MEDS: doxycycline 100 MG in sodium chloride 0.9% (plus) 100 ML IV (22:15)
[2023-04-17 22:54] VITALS: BP 123/87; PULSE 103; RESP 16; TEMP 36.6; O2SAT 97
== END 2023-04-17 22:55 | disposition home or self-care (01) ==
PROVIDERS: Emergency Provider Emergency Medicine; PCP Family Medicine
DX: S61.452A Open bite of left hand, initial encounter (principal); W54.0XXA Bitten by dog, initial encounter; J44.9 Chronic obstructive pulmonary disease, unspecified; E78.5 Hyperlipidemia, unspecified; Z86.19 Personal history of other infectious and parasitic diseases; F17.210 Nicotine dependence, cigarettes, uncomplicated
CPT/HCPCS: 73130; 96374; 96375; 99284; J0696; J1885; J2405; J3010; J3490; J7040

== ENCOUNTER → 2023-04-20 12:45 | Outpatient (BNVA) | payer MEDICAID, SELFPAY | PROVIDERS: PCP Family Medicine; Visit Provider Family Medicine | DX: R30.0 Dysuria (principal); S62.618A Displaced fracture of proximal phalanx of other finger, initial encounter for closed fracture; X58.XXXA Exposure to other specified factors, initial encounter | CPT/HCPCS: 81003 ==

== ENCOUNTER 2023-05-13 21:14 | Emergency (ER) | payer MEDICAID, SELFPAY ==
[2023-05-13 21:15] VITALS: BP 126/83; PULSE 110; RESP 18; TEMP 37.2; O2SAT 98; BMI 31.1
[2023-05-13 22:04] VITALS: BP 126/83; PULSE 110; RESP 18; TEMP 37.2; O2SAT 98
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
== END 2023-05-13 22:05 | disposition home or self-care (01) ==
PROVIDERS: Emergency Provider Physician Assistant; PCP Family Medicine
DX: S50.812A Abrasion of left forearm, initial encounter (principal); J44.9 Chronic obstructive pulmonary disease, unspecified; E78.5 Hyperlipidemia, unspecified; Z86.19 Personal history of other infectious and parasitic diseases; F17.210 Nicotine dependence, cigarettes, uncomplicated; W25.XXXA Contact with sharp glass, initial encounter
CPT/HCPCS: 99282

== ENCOUNTER 2023-11-24 13:52 | Emergency (ER) | payer MEDICAID, SELFPAY ==
[2023-11-24 14:01] VITALS: BP 133/86; PULSE 72; RESP 15; TEMP 36.5; O2SAT 100
[2023-11-24 14:24] VITALS: BP 132/81; PULSE 83; RESP 16; O2SAT 99
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
[2023-11-24] MEDS: HYDROcodone-acetaminophen 7.5-325 mg Tablet 1 TAB PO (15:00)
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
[2023-11-24 16:07] VITALS: BP 125/76; PULSE 56; RESP 15; O2SAT 96
[2023-11-24 17:25] VITALS: BP 128/75; PULSE 80; RESP 16; O2SAT 97
== END 2023-11-24 17:25 | disposition home or self-care (01) ==
PROVIDERS: Emergency Provider Physician Assistant; PCP Family Medicine
DX: Z04.1 Encounter for examination and observation following transport accident (principal); M54.9 Dorsalgia, unspecified; V89.2XXA Person injured in unspecified motor-vehicle accident, traffic, initial encounter
CPT/HCPCS: 72040; 72072; 72100; 99284

== ENCOUNTER 2024-01-16 22:39 | Emergency (ER) | payer MEDICAID, SELFPAY ==
[2024-01-16 22:42] VITALS: BP 100/81; PULSE 74; RESP 18; TEMP 36.7; O2SAT 95
--- NOTE | 2024-01-16 22:45 | ECG_ITS ---
[facility] Test Date: 2024-01-16 Pat Name: Katie Zuniga Department: Room: Gender: Female [employer]: : [id number] Requested By: Kendall Ross Order Number: [id number] Maikel MD: Angella Farah M.D. Measurements Intervals [place] Rate: 83 P: 0 [place]: 0 QRS: 28 QRSD: 90 T: 43 QT: 398 QTc: 468 Interpretive Statements SUPRAVENTRICULAR RHYTHM ABNORMAL RHYTHM ECG Compared to ECG 01/05/2021 19:36:13 Supraventricular rhythm now present Sinus rhythm no longer present Electronically Signed On 01-17-2024 22:57:27 CDT by Angella Farah M.D. [id number]
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
[2024-01-16 23:05] LABS: Glucose Point of Care 174 mg/dL (70-110)
[2024-01-17] VITALS: PULSE 132; RESP 16; O2SAT 92
[2024-01-17 00:04] LABS: Basophils # 0.1 10^3/uL (0.0-0.1); Basophils % 0.5 %; Eosinophils # 0.2 10^3/uL (0.0-0.8); Eosinophils % 1.3 %; Hematocrit 38.7 % (36-47); Lymphocytes # 2.3 10^3/uL (0.8-4.8); Lymphocytes % 19.3 %; Mean Corpuscular HGB Conc 32.3 g/dL (30-55); Mean Corpuscular Hemoglobin 31.6 pg (27-33); Monocytes # 0.9 10^3/uL (0.2-0.9); Monocytes % 7.5 %; Neutrophils # 8.36 10^3/uL (1.8-7.7); Nucleated Red Blood Cells % 0 %; Platelet Count 196 10^3/cmm (157-399); Red Blood Count 3.95 10^6/uL (3.85-5.65); Red Cell Distribution Width 12.8 % (12.1-15.1); White Blood Count 11.79 10^3/uL (3.29-11.43)
[2024-01-17 00:28] LABS: Acetaminophen < 5.0 ug/mL (10-30); Alanine Aminotransferase 23 U/L (0-33); Albumin Level 4.2 g/dL (3.5-5.2); Alcohol Level < 10 mg/dL (0-10); Alkaline Phosphatase 118 U/L (35-105); Anion Gap 13.2 (5-19); Aspartate Amino Transferase 22 U/L (0-32); Blood Urea Nitrogen 17 mg/dL (6-20); Carbon Dioxide 28 mmol/L (22-29); Chloride 103 mmol/L (98-107); Creatinine Clr Calc Pharmacy 86.6618; Globulin 3.6 g/dL (1.3-4.6); Glomerular Filtration Rate 75.6 mL/min (90-130); Glucose 109 mg/dL (65-115); Osmolality Calculated 292 mOsm/kg (285-295); Potassium 4.2 mmol/L (3.5-5.1); Salicylate < 0.3 mg/dL (3-10); Sodium 140 mmol/L (136-145); Total Bilirubin 0.3 mg/dL (0.15-1.2); Total Protein 7.8 g/dL (6.6-8.7)
[2024-01-17 01:09] VITALS: BP 116/79; PULSE 75; RESP 20; O2SAT 96
== END 2024-01-17 01:11 | disposition home or self-care (01) ==
PROVIDERS: Emergency Provider Emergency Medicine; PCP Family Medicine
DX: T40.411A Poisoning by fentanyl or fentanyl analogs, accidental (unintentional), initial encounter (principal); Z72.0 Tobacco use; J44.9 Chronic obstructive pulmonary disease, unspecified; E78.5 Hyperlipidemia, unspecified; Z86.19 Personal history of other infectious and parasitic diseases
CPT/HCPCS: 36416; 80053; 80307; 82962; 85025; 93005; 99284

== ENCOUNTER 2024-01-17 20:05 | Emergency (ER) | payer MEDICAID, SELFPAY ==
[2024-01-17 20:16] VITALS: BMI 31.1
[2024-01-17 20:20] VITALS: BP 119/88; RESP 16; O2SAT 98
--- NOTE | 2024-01-17 20:26 | XRR_ITS ---
PROCEDURE INFORMATION: Exam: XR Chest Exam date and time: 01/17/2024 9:21 PM Age: 53 years old Clinical indication: Cough TECHNIQUE: Imaging protocol: Radiologic exam of the chest. Views: 1 view. COMPARISON: CR XR chest 1V portable [id number] 01/05/2021 7:51 PM FINDINGS: Lungs: Unremarkable. No consolidation. Pleural spaces: Unremarkable. No pleural effusion. No pneumothorax. Heart/Mediastinum: Unremarkable. No cardiomegaly. Bones/joints: Unremarkable. XR/XR chest 1V portable [id number] IMPRESSION: No acute findings.
--- NOTE | 2024-01-17 21:19 | W.ED.URI ---
HPI - URI/Sore Throat General: Chief Complaint: Upper Respiratory Infection Stated Complaint: leg pain Time Seen by Provider: 01/17/24 20:12 History of Present Illness: Patient presents to the ER with complaints of shortness of breath feels like she has pneumonia. He is coughing up green sputum. Patient also says her right lower leg hurts. Patient yesterday was brought in with an IO in her right lower leg secondary to an overdose of opiates. Patient denies any fevers chills. During her stay here in ER she has not coughed up any green mucus and has an O2 saturation of 98% on room air. Review of Systems General: Reports: 10 or more systems reviewed and unremarkable except in HPI and below PFSH ED PFSH: Medical History BRAEDEN (generalized anxiety disorder) Endocarditis Asthma COPD (chronic obstructive pulmonary disease) Dyslipidemia Hep C w/ coma, chronic Anxiety Chronic pain Surgical History History of ankle surgery History of abdominal surgery Social History Smoking and tobacco/nicotine status: current every day tobacco/nicotine user Alcohol intake: former Substance/Drug Use: former Physical Exam Const: COMMON NORMALS: no acute distress, average body habitus, patient oriented x3, no limitations, healthy appearing, alert and well nourished HENMT: COMMON NORMALS: normocephalic, atraumatic, hearing grossly normal bilaterally, external ears normal, Normal external nose present, moist oral mucous membranes and oropharynx normal HEAD & SCALP: normocephalic and atraumatic NOSE: Normal external nose present EXTERNAL EAR: Yes external ears normal Neck/C-Spine: COMMON NORMALS: no JVD Chest: COMMONS NORMALS: normal inspection of the chest and normal palpation of entire chest wall Resp: COMMON NORMALS: normal respiratory effort, No retractions, No use of accessory muscles and clear to auscultation bilaterally AUSCULTATION: clear to auscultation bilaterally Cardio: COMMON NORMALS: no JVD, regular rate, regular rhythm, S1 normal heart sound present, S2 normal heart sound present, No gallops present (Cardio), No clicks present (Cardio), No murmurs present (Cardio) and No rub (Cardio) RATE: regular rate RHYTHM: regular rhythm HEART SOUNDS: S1 normal heart sound present and S2 normal heart sound present GI: COMMON NORMALS: Normal to inspection, nondistended, normoactive bowel sounds present, Soft to palpation, non-tender, No hepatosplenomegaly present and no masses PALPATION: Yes Soft to palpation and Yes No hepatosplenomegaly present Extremity: NARRATIVE EXTREMITY EXAM: Swelling to right pretibial area overlying the area they put the IO in. No erythema, streaking, discharge or signs of infection. Neuro: COMMON NORMALS: patient oriented x3 SENSORIUM/ORIENTATION: Yes alert Course Vital Signs: Vital signs: Vital Signs Respiratory Rate 16 01/17/24 20:20 Blood Pressure 119/88 01/17/24 20:20 Pulse Oximetry 98 01/17/24 20:20 Oxygen Delivery Me thod Room Air 01/17/24 20:20 MDM - URI/Sore Throat Medical Decision Making Chest x-ray showed no acute findings. Physical exam was essentially benign. Patient be discharged home with diagnosis of upper respiratory infection and swelling secondary to IO insertion, patient should follow-up with her PCP in the next 7 days. Differential Diagnosis Likely upper respiratory infection and viral infection; Unlikely croup, otitis media, sinusitis, bronchitis, influenza or pharyngitis Medical Records I reviewed the patient's medical records. Lab Data I reviewed the patient's lab results. Radiology Impressions Chest X-Ray 01/17/24 20:26 IMPRESSION: No acute findings. All radiology interpretation(s) finalized by discharge Discharge Plan Discharge Patient Disposition: Home Clinical Impression: Upper respiratory infection, Acute pain of right lower extremity Condition: Stable Prescriptions: No Action oxycodone-acetaminophen 7.5-325 mg tablet 1 tab PO QID PRN (Reason: Pain) Rx Instructions: Dr. Richardson clonazepam 1 mg tablet 1 mg PO TID metoprolol tartrate 25 mg tablet 25 mg PO DAILY 30 Days Qty: 30 3RF Discharge Orders: Discharge ED (Routine); Ordered 01/17/24 Ordered By: Parth Swenson Referrals: Lou Abraham MD [Primary Care Provider] - 1 week Patient Instructions: Upper Respiratory Infection - Adult Activity Restrictions/Additional Instructions: Your chest x-ray was read off as negative by the radiologist, your right leg does not appear to be infected at this time. They inserted an IO to give the fluid yesterday when he came in overdose. This takes several days for the swelling and pain to improve.Please follow-up with your family practice physician for further evaluation and treatment as needed. Coding Level of Care Code ED Ceramic Engineering Professor for Shaw Hawkins
== END 2024-01-17 22:13 | disposition home or self-care (01) ==
PROVIDERS: Emergency Provider Emergency Medicine; PCP Family Medicine
DX: J06.9 Acute upper respiratory infection, unspecified (principal); M79.604 Pain in right leg; J44.9 Chronic obstructive pulmonary disease, unspecified; E78.5 Hyperlipidemia, unspecified; Z86.19 Personal history of other infectious and parasitic diseases; Z72.0 Tobacco use
CPT/HCPCS: 71045; 99283

== ENCOUNTER 2024-07-16 10:40 | Emergency (ER) | payer MEDICAID, SELFPAY ==
[2024-07-16 10:48] VITALS: BP 132/90; PULSE 88; RESP 16; TEMP 36.8; O2SAT 92; BMI 25.4
--- NOTE | 2024-07-16 11:08 | XRR_ITS ---
PROCEDURE INFORMATION: Exam: XR Left Ribs with PA Chest Exam date and time: 07/16/2024 11:13 AM Age: 53 years old Clinical indication: Injury or trauma; Fall; Rib area, left side; Blunt trauma; Additional info: Fall left rib pain TECHNIQUE: Imaging protocol: Radiologic exam of the left ribs with PA chest. Views: 3 views COMPARISON: CR XR chest 1V portable [id number] 01/17/2024 9:21 PM FINDINGS: Lungs: Unremarkable. No consolidation. Pleural spaces: Unremarkable. No pleural effusion. No pneumothorax. Heart/Mediastinum: Unremarkable. No cardiomegaly. Bones/joints: No definite rib fracture is identified on the left. XR/XR ribs LT mn 3V w CXR1V [id number] IMPRESSION: No acute findings.
--- NOTE | 2024-07-16 13:09 | W.ED.FALL ---
HPI - Fall General: Chief Complaint: Fall Stated Complaint: FALL Time Seen by Provider: 07/16/24 13:09 History of Present Illness: 53-year-old female comes in today for complaints of evaluation after a fall. Patient fallen 2 days ago and has left-sided rib pain. Patient also reports some lower pelvic pain and dysuria. Patient appears nontoxic. Patient appears no acute distress. Respirations are even. Skin is warm and dry. Patient has a history of substance use disorder, anxiety, asthma, and hepatitis. Related Data Previous Rx's Medication Instructions Recorded ivermectin 3 mg tablet 15 mg (5 x 3 mg) PO .COMPLEX 2 05/01/24 doses #10 tabs permethrin 5 % topical cream 1 applic topical Q7D 2 doses #60 05/01/24 grams polyethylene glycol 3350 17 4 g PO DAILY #510 grams 05/01/24 gram/dose oral powder (Miralax) zolpidem 5 mg tablet (Ambien) 5 mg PO .qhs #30 tabs 05/01/24 metoprolol tartrate 25 mg tablet 25 mg PO DAILY 30 days #30 tabs 06/19/24 Allergies Allergy/AdvReac Type Severity Reaction Status Date / Time citalopram [From Celexa] Allergy cant pee Verified 06/19/24 13:10 codeine Allergy stomach Verified 06/19/24 13:10 upset morphine Allergy stomach Verified 06/19/24 13:10 upset Review of Systems General: Reports: 10 or more systems reviewed and unremarkable except in HPI and below PFSH ED PFSH: Medical History BRAEDEN (generalized anxiety disorder) Endocarditis Asthma COPD (chronic obstructive pulmonary disease) Dyslipidemia Hep C w/ coma, chronic Anxiety Chronic pain Surgical History History of ankle surgery History of abdominal surgery Social History Smoking and tobacco/nicotine status: current every day tobacco/nicotine user Alcohol intake: former Substance/Drug Use: former Physical Exam Const: COMMON NORMALS: alert HENMT: COMMON NORMALS: normocephalic HEAD & SCALP: normocephalic Neck/C-Spine: COMMON NORMALS: full ROM Chest: CHEST: Yes tenderness (Left anterior ribs) Resp: COMMON NORMALS: normal respiratory effort and clear to auscultation bilaterally AUSCULTATION: clear to auscultation bilaterally Cardio: COMMON NORMALS: regular rate and regular rhythm RATE: regular rate RHYTHM: regular rhythm GI: COMMON NORMALS: Soft to palpation PALPATION: Yes Soft to palpation : COMMON NORMALS: Yes no CVA tenderness BLADDER/KIDNEY EXAM: Yes no CVA tenderness Back/Pelvis: COMMON NORMALS: no CVA tenderness and thoracic and lumbar spine normal to inspection Extremity: COMMON NORMALS: normal to inspection Neuro: SENSORIUM/ORIENTATION: Yes alert Skin: COMMON NORMALS: turgor normal GENERAL SKIN EXAM: turgor normal Course Vital Signs: Vital signs: Vital Signs Temperature 98.3 F 07/16/24 10:48 Pulse Rate 88 07/16/24 10:48 Respiratory Rate 16 07/16/24 10:48 Blood Pressure 132/90 07/16/24 10:48 Pulse Oximetry 92 07/16/24 10:48 Oxygen Delivery Me thod Room Air 07/16/24 10:48 MDM - Fall Medical Decision Making Patient presents for evaluation of injury to the left ribs. Patient also reported some dysuria. On exam patient appears nontoxic. Abdomen soft with some tenderness in the suprapubic area. No CVA tenderness. Lungs clear to auscultation. Patient has some left anterior rib pain. Differential diagnosis includes fracture, contusion, urinary tract infection, malingering. X-ray notes no fractures. Urinalysis shows no sign of infection. Reviewed exam with patient recommended treatment for contusions. Patient reports understanding agreed to plan. Lab Data Radiology Impressions Ribs X-Ray 07/16/24 11:08 IMPRESSION: No acute findings. Laboratory Results Urine Color Yellow (Yellow) 07/16/24 12:50 Urine Appearance Clear (CLEAR) 07/16/24 12:50 Urine pH 7.0 (5-7) 07/16/24 12:50 Ur Specific [place] 1.004 (1.005-1.030) L 07/16/24 12:50 Urine Protein Negative (Negative) 07/16/24 12:50 Urine Glucose (UA) Negative (Normal) 07/16/24 12:50 Urine Ketones Negative (Negative) 07/16/24 12:50 Urine Blood Negative (Negative) 07/16/24 12:50 Urine Nitrate Negative (Negative) 07/16/24 12:50 Urine Bilirubin Negative (Negative) 07/16/24 12:50 Urine Urobilinogen 0.2 mg/dL (Negative) 07/16/24 12:50 Ur Leukocyte Esterase Negative (Negative) 07/16/24 12:50 Amorphous Sediment Not Reportable 07/16/24 12:50 All radiology interpretation(s) finalized by discharge Discharge Plan Discharge Patient Disposition: Home Clinical Impression: Fall Qualifiers: Encounter type: initial encounter Qualified Code(s): W19.XXXA - Unspecified fall, initial encounter Contusion of rib on left side Qualifiers: Encounter type: initial encounter Qualified Code(s): S20.212A - Contusion of left front wall of thorax, initial encounter Condition: Stable Prescriptions: No Action metoprolol tartrate 25 mg tablet 25 mg PO DAILY 30 Days Qty: 30 5RF permethrin 5 % cream 1 applic topical Q7D Qty: 60 1RF Rx Instructions: apply second treatment 7 days if lesions remain ivermectin 3 mg tablet 15 mg PO .COMPLEX Qty: 10 0RF Rx Instructions: 15 mg orally once then repeat in two weeks; zolpidem [Ambien] 5 mg tablet 5 mg PO .qhs Qty: 30 3RF polyethylene glycol 3350 [Miralax] 17 gram/dose powder 4 g PO DAILY Qty: 510 3RF Discharge Orders: Discharge ED (Routine); Ordered 07/16/24 Ordered By: Sohail Quintero Referrals: Rosalba Maldonado FNP-C [Primary Care Provider] - Discharge Diet: Usual diet Discharge Activity: Increase activity as tolerated Patient Instructions: Rib Contusion (ED) Activity Restrictions/Additional Instructions: Activity as tolerated. Use acetaminophen and ibuprofen for pain. Drink plenty of water and fluids. Follow-up with primary care for further instructions. Return to ED for new concerns. Coding Level of Care Code ED Embossing Calender Operator for Shaw Hawkins
[2024-07-16 13:44] LABS: Add Urine Microscopic? NO
[2024-07-16 13:47] LABS: Bilirubin Urine Negative (Negative); Blood Urine Negative (Negative); Glucose Urine UA Negative (Normal); Ketones Urine Negative (Negative); Leukocyte Esterase Urine Negative (Negative); Nitrate Urine Negative (Negative); Protein Urine Negative (Negative); Specific Gravity, Urine 1.004 (1.005-1.030); Urine Appearance Clear (CLEAR); Urine Color Yellow (Yellow); Urobilinogen Urine 0.2 mg/dL (Negative)
[2024-07-16 13:57] VITALS: BP 125/68; PULSE 88; RESP 16; O2SAT 96
[2024-07-16 14:25] LABS: Charge for UA Resulting for Rev
== END 2024-07-16 13:58 | disposition home or self-care (01) ==
PROVIDERS: Emergency Provider Nurse Practitioner Family; PCP Nurse Practitioner Family
DX: S20.212A Contusion of left front wall of thorax, initial encounter (principal); W19.XXXA Unspecified fall, initial encounter; J44.9 Chronic obstructive pulmonary disease, unspecified; Z72.0 Tobacco use
CPT/HCPCS: 71101; 81003; 99284

== ENCOUNTER 2024-09-10 20:26 | Emergency (ER) | payer MEDICAID, SELFPAY ==
[2024-09-10 20:26] VITALS: BP 161/73; PULSE 135; RESP 20; TEMP 38.1; O2SAT 99; BMI 27.3
--- NOTE | 2024-09-10 20:30 | XRR_ITS ---
PROCEDURE INFORMATION: Exam: XR Chest Exam date and time: 09/10/2024 8:48 PM Age: 53 years old Clinical indication: Smoker's cough; Additional info: Fever, cough TECHNIQUE: Imaging protocol: Radiologic exam of the chest. Views: 1 view. COMPARISON: CR XR ribs LT mn 3V w CXR1V [id number] 07/16/2024 11:13 AM FINDINGS: Lungs: Asymmetric right lung base haziness which may be related to overlying breast tissue. No focal consolidation related to airspace disease. Pleural spaces: Unremarkable. No pleural effusion. No pneumothorax. Heart/Mediastinum: Unremarkable. No cardiomegaly. Bones/joints: Unremarkable. XR/XR chest 1V portable [id number] IMPRESSION: As above.
--- NOTE | 2024-09-10 20:30 | ECG_ITS ---
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 Measurements Intervals Opp Rate: 121 P: -3 IL: 114 QRS: 79 QRSD: 88 T: 66 QT: 307 QTc: 436 Interpretive Statements SINUS TACHYCARDIA WITH SHORT IL INTERVAL Compared to ECG 01/16/2024 22:41:33 Short IL interval now present Supraventricular rhythm no longer present Electronically Signed On 09-12-2024 18:36:18 AUTOMOBILE MECHANIC MOTOR by Aris Jamison M.D. [email or web address]
--- NOTE | 2024-09-10 20:34 | ECG_ITS ---
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 Measurements Intervals [place] Rate: 121 P: -3 MD: 114 QRS: 79 QRSD: 88 T: 66 QT: 307 QTc: 436 Interpretive Statements SINUS TACHYCARDIA WITH SHORT MD INTERVAL Compared to ECG 01/16/2024 22:41:33 Short MD interval now present Supraventricular rhythm no longer present Electronically Signed On 09-12-2024 18:36:10 SCIENCE INTERN by Aris Jamison M.D. [id number]
--- NOTE | 2024-09-10 20:46 | W.ED.FEVER ---
HPI - Fever General: Chief Complaint: Fever Stated Complaint: fever Time Seen by Provider: 09/10/24 20:26 History of Present Illness: 53-year-old female presents emergency room with complaints of fever, cough and weakness. She says this been going on for several weeks now. Worse now. She is tachycardic on presentation. Some pleuritic chest pain. She says her legs are hurting. Says her whole body hurts. Related Data Previous Rx's Medication Instructions Recorded ivermectin 3 mg tablet 15 mg (5 x 3 mg) PO .COMPLEX 2 05/01/24 doses #10 tabs permethrin 5 % topical cream 1 applic topical Q7D 2 doses #60 05/01/24 grams polyethylene glycol 3350 17 4 g PO DAILY #510 grams 05/01/24 gram/dose oral powder (Miralax) zolpidem 5 mg tablet (Ambien) 5 mg PO .qhs #30 tabs 05/01/24 metoprolol tartrate 25 mg tablet 25 mg PO DAILY 30 days #30 tabs 06/19/24 benzonatate 200 mg capsule 200 mg PO TID PRN cough #30 caps 09/10/24 dexamethasone 6 mg tablet 6 mg PO DAILY 5 days #5 tabs 09/10/24 doxycycline hyclate 100 mg capsule 100 mg PO BID 7 days #14 caps 09/10/24 Allergies Allergy/AdvReac Type Severity Reaction Status Date / Time citalopram [From Celexa] Allergy cant pee Verified 06/19/24 13:10 codeine Allergy stomach Verified 06/19/24 13:10 upset morphine Allergy stomach Verified 06/19/24 13:10 upset Review of Systems Narrative: Constitutional symptoms: Negative except as documented in HPI. Skin symptoms: Negative except as documented in HPI. Eye symptoms: Negative except as documented in HPI. ENMT symptoms: Negative except as documented in HPI. Respiratory symptoms: Negative except as documented in HPI. Cardiovascular symptoms: Negative except as documented in HPI. Gastrointestinal symptoms: Negative except as documented in HPI. Genitourinary symptoms: Negative except as documented in HPI. Musculoskeletal symptoms: Negative except as documented in HPI. Neurologic symptoms: Negative except as documented in HPI. Psychiatric symptoms: Negative except as documented in HPI. Endocrine symptoms: Negative except as documented in HPI. PFSH ED PFSH: Medical History BRAEDEN (generalized anxiety disorder) Endocarditis Asthma COPD (chronic obstructive pulmonary disease) Dyslipidemia Hep C w/ coma, chronic Anxiety Chronic pain Surgical History History of ankle surgery History of abdominal surgery Social History Smoking and tobacco/nicotine status: current every day tobacco/nicotine user Alcohol intake: former Substance/Drug Use: former Physical Exam Narrative: EXAM NARRATIVE: General: Alert, no acute distress. Skin: Warm, dry. Head: Normocephalic, atraumatic. Neck: Supple, trachea midline. Eye: Extraocular movements are intact. Ears, nose, mouth and throat: mucosa moist. Cardiovascular: Regular, Normal peripheral perfusion. Respiratory: Coarse, some scattered wheeze, mild tachypnea Gastrointestinal: Soft, Nontender, Non distended Musculoskeletal: Normal ROM, no deformity. Neurological: Alert and oriented, No focal neurological deficit observed. Psychiatric: Cooperative, appropriate mood & affect. Course Vital Signs: Vital signs: Vital Signs Temperature 100.5 F H 09/10/24 20:26 Pulse Rate 109 H 09/10/24 22:31 Respiratory Rate 20 H 09/10/24 20:26 Blood Pressure 108/82 09/10/24 22:31 Pulse Oximetry 96 09/10/24 22:31 Oxygen Delivery Me thod Room Air 09/10/24 22:31 MDM - Fever Medical Decision Making Differential diagnosis for patient with shortness of breath includes but is not limited to and based on the above HPI, review of systems and physical exam: Pneumonia. Bronchitis. Asthma or COPD with acute exacerbation. Acute coronary syndrome / NE. Pulmonary embolism. Anxiety. Congestive heart failure. Viral infections including influenza and Covid-19. Atrial fibrillation. Anxiety. Pleural effusion. Pneumothorax. Orders placed to evaluate differential diagnosis based on the above differential, HPI and physical exam EKG: Time 2033. Rate 121. Sinus tachycardia, No ST-T changes, no ectopy, normal MT & QRS intervals, This was reviewed and interpreted by myself the ER physician at 2035. Chest x-ray: No acute process. No infiltrate. No pneumothorax. This was reviewed and interpreted by myself the emergency room physician. I also reviewed the radiology report. Lab Review: Laboratory results were reviewed and interpreted by myself the emergency room physician. No leukocytosis. No anemia. No renal failure. Patient is flu a positive. I reviewed the patient's medical record. Reexamination: Patient's tachycardia is improved some. No focal motor deficits. She continues to deny any suicidal ideation. Family had told nursing that they thought she might be suicidal. That she took a couple of Xanax the other day and she is worried about her. However the patient continues to deny any of this. Assessment and plan: Influenza A Dehydration ?Fluids, Decadron, Tessalon Perles. - Discharged home - Discussed plan with patient. Answered any questions. - Evaluation and treatment of this problem were appropriate in the emergency setting. Lab Data 09/10/24 20:48 09/10/24 20:48 Radiology Impressions Chest X-Ray 09/10/24 20:30 IMPRESSION: As above. Laboratory Results WBC 6.14 10^3/uL (3.29-11.43) 09/10/24 20:48 RBC 3.88 10^6/uL (3.85-5.65) 09/10/24 20:48 Hgb 12.00 g/dL (11.27-16.99) 09/10/24 20:48 Hct 36.9 % (36-47) 09/10/24 20:48 MCV 95.1 fl (85-98) 09/10/24 20:48 MCH 30.9 pg (27-33) 09/10/24 20:48 MCHC 32.5 g/dL (30-55) 09/10/24 20:48 RDW 13.5 % (12.1-15.1) 09/10/24 20:48 Plt Count 204 10^3/cmm (157-399) 09/10/24 20:48 MPV 10.0 fL (7.4-10.4) 09/10/24 20:48 Neut % (Auto) 74.4 % 09/10/24 20:48 Lymph % (Auto) 16.3 % 09/10/24 20:48 [place] % (Auto) 8.6 % 09/10/24 20:48 Eos % (Auto) 0.2 % 09/10/24 20:48 Baso % (Auto) 0.3 % 09/10/24 20:48 Neut # (Auto) 4.57 10^3/uL (1.8-7.7) 09/10/24 20:48 Lymph # (Auto) 1.0 10^3/uL (0.8-4.8) 09/10/24 20:48 [place] # (Auto) 0.5 10^3/uL (0.2-0.9) 09/10/24 20:48 Eos # (Auto) 0.0 10^3/uL (0.0-0.8) 09/10/24 20:48 Baso # (Auto) 0.0 10^3/uL (0.0-0.1) 09/10/24 20:48 Nucleated RBC % (auto) 0 % 09/10/24 20:48 Nucleated RBCs # 0.0 /100WBC 09/10/24 20:48 Specimen Type Arterial 09/10/24 20:48 Sample Site Radial, right 09/10/24 20:48 ABG pH 7.44 (7.35-7.45) 09/10/24 20:48 ABG pCO2 33.9 mmHg (35-45) L 09/10/24 20:48 ABG pO2 76.4 mmHg (80.0-100.0) L 09/10/24 20:48 ABG PO2/FiO2 Ratio 363 09/10/24 20:48 ABG HCO3 23.1 mmol/L (22-26) 09/10/24 20:48 ABG O2 Saturation 97.1 09/10/24 20:48 ABG Base Excess -0.6 mmol/L (-2.0-2.0) 09/10/24 20:48 Nhan Test Pos 09/10/24 20:48 A-a O2 Gradient 4.0 mmHg (5-10) L 09/10/24 20:48 Hematocrit 37.7 % (37-47) 09/10/24 20:48 Hgb O2 Saturation 95.3 % (95-100) 09/10/24 20:48 Carboxyhemoglobin 1.4 %THgb (0.4-20.1) 09/10/24 20:48 Methemoglobin 0.5 % (0.4-1.5) 09/10/24 20:48 Total Hemoglobin 12.3 g/dL (12-16) 09/10/24 20:48 Sodium 133.0 mmol/L (131-143) 09/10/24 20:48 Potassium 3.9 mmol/L (3.5-5.0) 09/10/24 20:48 Glucose 126.0 mg/dL (70-115) H 09/10/24 20:48 Ionized Calcium 1.1 mmol/L (1.1-1.4) 09/10/24 20:48 O2 Delivery Device Room air 09/10/24 20:48 FiO2 21.0 % 09/10/24 20:48 Business Development Sales Executive ID [id number] 09/10/24 20:48 Sodium 136 mmol/L (136-145) 09/10/24 20:48 Potassium 4.2 mmol/L (3.5-5.1) 09/10/24 20:48 Chloride 101 mmol/L (98-107) 09/10/24 20:48 Carbon Dioxide 24 mmol/L (22-29) 09/10/24 20:48 Anion Gap 15.2 (5-19) 09/10/24 20:48 BUN 18 mg/dL (6-20) 09/10/24 20:48 Creatinine 0.9 mg/dL (0.5-0.9) 09/10/24 20:48 GFR Calculation 66.0 mL/min (90-130) L 09/10/24 20:48 Glucose 122 mg/dL (65-115) H 09/10/24 20:48 Calculated Osmolality 285 mOsm/kg (285-295) 09/10/24 20:48 Lactic Acid 2.4 mmol/L (0.5-2.2) H 09/10/24 20:48 Calcium 8.6 mg/dL (8.5-10.5) 09/10/24 20:48 Total Bilirubin 0.2 mg/dL (0.15-1.2) 09/10/24 20:48 AST 20 U/L (0-32) 09/10/24 20:48 ALT 16 U/L (0-33) 09/10/24 20:48 Alkaline Phosphatase 98 U/L (35-105) 09/10/24 20:48 C-Reactive Protein 36.1 mg/L (0.0-4.9) H 09/10/24 20:48 Total Protein 7.1 g/dL (6.6-8.7) 09/10/24 20:48 Albumin 3.9 g/dL (3.5-5.2) 09/10/24 20:48 Globulin 3.2 g/dL (1.3-4.6) 09/10/24 20:48 TSH 0.21 uIU/mL (0.27-4.20) L 09/10/24 20:48 Salicylates < 0.3 mg/dL (3-10) L 09/10/24 20:48 Acetaminophen 8.4 ug/mL (10-30) L 09/10/24 20:48 Ethyl Alcohol < 10 mg/dL (0-10) 09/10/24 20:48 Coronavirus (PCR) Negative (Negative) 09/10/24 20:42 Influenza A (PCR) Positive (Negative) 09/10/24 20:42 Influenza Type B (PCR) Negative (Negative) 09/10/24 20:42 RSV (PCR) Negative (Negative) 09/10/24 20:42 All radiology interpretation(s) finalized by discharge Discharge Plan Discharge Patient Disposition: Home Clinical Impression: Influenza, Cough, Dehydration Condition: Stable Prescriptions: New doxycycline hyclate 100 mg capsule 100 mg PO BID 7 Days Qty: 14 0RF benzonatate 200 mg capsule 200 mg PO TID PRN (Reason: cough) Qty: 30 0RF dexamethasone 6 mg tablet 6 mg PO DAILY 5 Days Qty: 5 0RF No Action metoprolol tartrate 25 mg tablet 25 mg PO DAILY 30 Days Qty: 30 5RF permethrin 5 % cream 1 applic topical Q7D Qty: 60 1RF Rx Instructions: apply second treatment 7 days if lesions remain ivermectin 3 mg tablet 15 mg PO .COMPLEX Qty: 10 0RF Rx Instructions: 15 mg orally once then repeat in two weeks; zolpidem [Ambien] 5 mg tablet 5 mg PO .qhs Qty: 30 3RF polyethylene glycol 3350 [Miralax] 17 gram/dose powder 4 g PO DAILY Qty: 510 3RF Discharge Orders: Discharge ED (Routine); Ordered 09/10/24 Ordered By: Steffi Delarosa Referrals: Rosalba Maldonado FNP-C [Primary Care Provider] - Patient Instructions: Opioid Safety, Pain Management Coding Level of Care Code ED Commercial Credit Reviewer for [employer]
[2024-09-10 20:47] VITALS: BP 108/82; PULSE 120; O2SAT 94
[2024-09-10 21:01] LABS: ABG PCO2 33.9 mmHg (35-45); ABG PH Result 7.44 (7.35-7.45); Arterial Blood Gas Hematocrit 37.7 % (37-47); Base Excess ABG -0.6 mmol/L (-2.0-2.0); Blood Gas Allen Test Pos; Blood Gas Operator Identificat 600455; Blood Gas Sample Site Radial, right; Blood Gas Sample Type Arterial; Carboxyhemoglobin 1.4 %THgb (0.4-20.1); HCO3 ABG 23.1 mmol/L (22-26); HGB O2 Sat 95.3 % (95-100); Ionized Calcium Level - ABG 1.1 mmol/L (1.1-1.4); Methemoglobin 0.5 % (0.4-1.5); Oxygen Device ROOM AIR; Oxygen Saturation ABG 97.1; PO2 ABG 76.4 mmHg (80.0-100.0); PO2 FiO2 Ratio Arterial Blood 363; Potassium Level - ABG 3.9 mmol/L (3.5-5.0); Total Hemoglobin 12.3 g/dL (12-16)
[2024-09-10 21:02] LABS: Basophils % 0.3 %; Eosinophils % 0.2 %; Hematocrit 36.9 % (36-47); Lymphocytes % 16.3 %; Mean Corpuscular HGB Conc 32.5 g/dL (30-55); Mean Corpuscular Hemoglobin 30.9 pg (27-33); Mean Corpuscular Volume 95.1 fl (85-98); Monocytes # 0.5 10^3/uL (0.2-0.9); Monocytes % 8.6 %; Neutrophils # 4.57 10^3/uL (1.8-7.7); Neutrophils % 74.4 %; Nucleated Red Blood Cells % 0 %; Platelet Count 204 10^3/cmm (157-399); Red Blood Count 3.88 10^6/uL (3.85-5.65); Red Cell Distribution Width 13.5 % (12.1-15.1); White Blood Count 6.14 10^3/uL (3.29-11.43)
[2024-09-10] MEDS: sodium chloride 0.9% 1,000 ML 999 ML IV (21:20)
[2024-09-10] MEDS: benzonatate 100 mg Capsule 200 MG PO (21:20)
[2024-09-10 21:31] LABS: Lactic Sepsis W/Reflex 2.4 mmol/L (0.5-2.2)
[2024-09-10 21:40] LABS: Covid PCR NEGATIVE (Negative); Influenza A POSITIVE (Negative); Influenza B NEGATIVE (Negative); Respiratory Syncytial Virus Ce NEGATIVE (Negative)
[2024-09-10 21:41] LABS: Acetaminophen 8.4 ug/mL (10-30); Alanine Aminotransferase 16 U/L (0-33); Albumin Level 3.9 g/dL (3.5-5.2); Alkaline Phosphatase 98 U/L (35-105); Anion Gap 15.2 (5-19); Aspartate Amino Transferase 20 U/L (0-32); Blood Urea Nitrogen 18 mg/dL (6-20); C Reactive Protein 36.1 mg/L (0.0-4.9); Calcium 8.6 mg/dL (8.5-10.5); Carbon Dioxide 24 mmol/L (22-29); Chloride 101 mmol/L (98-107); Creatinine Clr Calc Pharmacy 64.1956; Globulin 3.2 g/dL (1.3-4.6); Glucose 122 mg/dL (65-115); Osmolality Calculated 285 mOsm/kg (285-295); Potassium 4.2 mmol/L (3.5-5.1); Sodium 136 mmol/L (136-145); Total Bilirubin 0.2 mg/dL (0.15-1.2); Total Protein 7.1 g/dL (6.6-8.7)
[2024-09-10 21:42] LABS: Alcohol Level < 10 mg/dL (0-10); Salicylate < 0.3 mg/dL (3-10); Thyroid Stimulating Hormone 0.21 uIU/mL (0.27-4.20)
[2024-09-10] MEDS: methylPREDNISolone sod succ 125 mg/2 mL INJ IVP (22:25)
[2024-09-10 22:31] VITALS: BP 108/82; PULSE 109; O2SAT 96
[2024-09-10] MEDS: acetaminophen 1,000 MG/100 ML PIGGYBACK 400 MG IV (22:32)
[2024-09-10 22:45] LABS: Reflex Lactate Order REFLEX LACTIC ORDERD
[2024-09-10 23:40] VITALS: BP 92/71; PULSE 105; O2SAT 93
== END 2024-09-10 23:41 | disposition home or self-care (01) ==
PROVIDERS: Emergency Provider Emergency Medicine; PCP Nurse Practitioner Family
DX: J10.1 Influenza due to other identified influenza virus with other respiratory manifestations (principal); E86.0 Dehydration; Z72.0 Tobacco use; J44.9 Chronic obstructive pulmonary disease, unspecified; E78.5 Hyperlipidemia, unspecified; R05.9 Cough, unspecified
CPT/HCPCS: 36415; 71045; 80051; 80053; 80307; 82330; 82805; 83605; 84443; 85025; 86140; 87040; 87077; 87150; 87186; 87205; 87637; 93005; 96374; 96375; 99285; J0131; J2919; J7030

== ENCOUNTER 2024-09-18 19:01 | Emergency (ER) | payer MEDICAID, SELFPAY ==
[2024-09-18 19:08] VITALS: BP 153/91; PULSE 76; RESP 20; TEMP 36.6; O2SAT 99; BMI 25.4
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
--- NOTE | 2024-09-18 20:00 | PC.NURSE ---
1950: Patient refused assessment by this nurse and discharge vitals.
== END 2024-09-18 19:57 | disposition home or self-care (01) ==
PROVIDERS: Emergency Provider Emergency Medicine; PCP Nurse Practitioner Family
DX: F19.10 Other psychoactive substance abuse, uncomplicated (principal); Z72.0 Tobacco use; J44.9 Chronic obstructive pulmonary disease, unspecified; E78.5 Hyperlipidemia, unspecified
CPT/HCPCS: 99283

== ENCOUNTER 2024-11-24 00:27 | Inpatient (IN) | payer MEDICAID, SELFPAY ==
[2024-11-24 00:28] VITALS: BP 126/84; PULSE 86; RESP 16; TEMP 36.7; O2SAT 94; BMI 27.3
[2024-11-24 00:59] LABS: Bilirubin Urine Negative (Negative); Blood Urine Negative (Negative); Glucose Urine UA Negative (Normal); Ketones Urine 1+ (Negative); Leukocyte Esterase Urine Negative (Negative); Nitrate Urine Negative (Negative); Protein Urine Negative (Negative); Specific Gravity, Urine 1.022 (1.005-1.030); Urine Appearance Clear (CLEAR); Urine Color Yellow (Yellow); pH Urine 5.5 (5-7)
--- NOTE | 2024-11-24 01:02 | PC.NURSE ---
Pts belongings inventoried by [employer] from security and this nurse.
[2024-11-24 01:04] LABS: Add Urine Microscopic? YES; Bacteria Urine None Seen /hpf; Hyaline Casts Urine 0.81 /lpf; RBC Urine 0-2 /hpf (0-2); Squamous Epithelial Cell Urine 0-5 /hpf (0-5); WBC Urine 0-5 /hpf (0-5)
[2024-11-24 01:07] LABS: Amphetamines Screen Urine Positive (Negative); Barbiturates Screen Urine Negative (Negative); Benzodiazepines Screen Urine Negative (Negative); Cocaine Screen Urine Negative (Negative); Opiate Screen Urine Negative (Negative); PCP Screen Urine Negative (Negative); THC Screen Urine Negative (Negative)
[2024-11-24 01:15] LABS: Basophils % 0.8 %; Eosinophils # 0.1 10^3/uL (0.0-0.8); Eosinophils % 2.3 %; Hematocrit 30.7 % (36-47); Lymphocytes # 1.8 10^3/uL (0.8-4.8); Lymphocytes % 47.1 %; Mean Corpuscular HGB Conc 31.9 g/dL (30-55); Mean Corpuscular Hemoglobin 31.1 pg (27-33); Mean Corpuscular Volume 97.5 fl (85-98); Monocytes # 0.5 10^3/uL (0.2-0.9); Neutrophils # 1.44 10^3/uL (1.8-7.7); Neutrophils % 37.5 %; Nucleated Red Blood Cells % 0 %; Platelet Count 166 10^3/cmm (157-399); Red Blood Count 3.15 10^6/uL (3.85-5.65); Red Cell Distribution Width 14.5 % (12.1-15.1); White Blood Count 3.84 10^3/uL (3.29-11.43)
[2024-11-24 01:44] LABS: Alanine Aminotransferase 17 U/L (0-33); Albumin Level 4.2 g/dL (3.5-5.2); Alkaline Phosphatase 86 U/L (35-105); Anion Gap 12.7 (5-19); Aspartate Amino Transferase 25 U/L (0-32); Blood Urea Nitrogen 15 mg/dL (6-20); Calcium 8.9 mg/dL (8.5-10.5); Carbon Dioxide 28 mmol/L (22-29); Chloride 100 mmol/L (98-107); Creatinine Clr Calc Pharmacy 95.2114; Globulin 2.4 g/dL (1.3-4.6); Glucose 127 mg/dL (65-115); Osmolality Calculated 286 mOsm/kg (285-295); Potassium 3.7 mmol/L (3.5-5.1); Sodium 137 mmol/L (136-145); Total Bilirubin 0.5 mg/dL (0.15-1.2); Total Protein 6.6 g/dL (6.6-8.7)
[2024-11-24 01:48] LABS: Acetaminophen < 5.0 ug/mL (10-30); Alcohol Level < 10 mg/dL (0-10); Salicylate < 0.3 mg/dL (3-10)
--- NOTE | 2024-11-24 02:40 | W.ED.PSYCHS ---
HPI - Psych General: Chief Complaint: Psychiatric Symptoms Stated Complaint: SI Time Seen by Provider: 11/24/24 01:44 History of Present Illness: 54-year-old female with a longstanding history of psychiatric disease as well as amphetamine addiction. She had compelling urges last night to end her life via overdose. She presents for evaluation, and is requesting admission to the psychiatric unit. She has had multiple admissions in the past. Related Data Previous Rx's ?Medication ?Instructions ?Recorded diphenhydramine HCl 25 mg capsule 25 mg PO BID PRN insomnia or hives 10/13/24 (Benadryl) or restless legs #60 caps ibuprofen 200 mg capsule 200 - 400 mg (1 - 2 x 200 mg) PO 10/13/24 Q6H PRN pain (scale score 4-6) #60 caps metoprolol tartrate 25 mg tablet 25 mg PO DAILY 30 days #30 tabs 10/13/24 polyethylene glycol 3350 17 4 g PO DAILY PRN constipation #119 10/13/24 gram/dose oral powder (Miralax) grams Allergies Allergy/AdvReac Type Severity Reaction Status Date / Time citalopram (From Celexa) Allergy cant pee Verified 11/24/24 00:49 codeine Allergy stomach Verified 11/24/24 00:49 upset morphine Allergy stomach Verified 11/24/24 00:49 upset [facility] ED PFSH: Medical History BRAEDEN (generalized anxiety disorder) Endocarditis Asthma COPD (chronic obstructive pulmonary disease) Dyslipidemia Hep C w/ coma, chronic Anxiety Chronic pain Surgical History History of ankle surgery History of abdominal surgery Social History Smoking and tobacco/nicotine status: current every day tobacco/nicotine user Alcohol intake: former Substance/Drug Use: former Physical Exam Const: COMMON NORMALS: no acute distress GENERAL APPEARANCE: cooperative; not ill appearing and not frail appearing HENMT: COMMON NORMALS: normocephalic, atraumatic and Normal external nose present HEAD & SCALP: normocephalic and atraumatic FACE & SINUS: normal facial exam and face symmetric NOSE: Normal external nose present Eye: COMMON NORMALS: Equal, round and reactive pupils present and EOMs intact bilaterally PUPIL: Yes Equal, round and reactive pupils present Neck/C-Spine: GENERAL: Yes trachea midline Chest: CHEST: Yes Symmetrical chest wall rise Resp: COMMON NORMALS: normal respiratory effort, No retractions, No use of accessory muscles and clear to auscultation bilaterally AUSCULTATION: clear to auscultation bilaterally Cardio: COMMON NORMALS: regular rate and regular rhythm RATE: regular rate RHYTHM: regular rhythm GI: COMMON NORMALS: Normal to inspection, nondistended, normoactive bowel sounds present Extremity: COMMON NORMALS: no pedal edema NARRATIVE EXTREMITY EXAM: Abrasion to the anterior left lower leg. Bleeding controlled. Neuro: ABRIL COMA SCALE: document GCS findings Abril coma scale eye opening: Spontaneous Abril coma scale verbal response: Orientated [place] coma scale motor response: Obey commands [place] coma scale total score: 15 SENSORY EXAM: Yes extremities (intact) Psych: COMMON NORMALS: speech normal SPEECH: Yes normal speech Skin: COMMON NORMALS: no rashes or lesions noted GENERAL SKIN EXAM: no rashes or lesions noted Course Vital Signs: Vital signs: Vital Signs Temperature 98.0 F 11/24/24 00:28 Pulse Rate 92 11/24/24 03:21 Respiratory Rate 15 11/24/24 03:21 Blood Pressure 122/81 11/24/24 03:21 Pulse Oximetry 96 11/24/24 03:21 Oxygen Delivery Me thod Room Air 11/24/24 03:21 MDM - Psych Medical Decision Making Medically, she appears quite stable. Her hemoglobin is 9.8. This combined with positivity for amphetamines on urine drug analysis are only positive findings. She is awake and talking. She is requesting admission to neuropsychiatric unit. Spoke with psychiatry. Willing to admit. Lab Data 11/24/24 01:11 11/24/24 01:11 Laboratory Results WBC 3.84 10^3/uL (3.29-11.43) 11/24/24 01:11 RBC 3.15 10^6/uL (3.85-5.65) L 11/24/24 01:11 Hgb 9.80 g/dL (11.27-16.99) L 11/24/24 01:11 Hct 30.7 % (36-47) L 11/24/24 01:11 MCV 97.5 fl (85-98) 11/24/24 01:11 MCH 31.1 pg (27-33) 11/24/24 01:11 MCHC 31.9 g/dL (30-55) 11/24/24 01:11 RDW 14.5 % (12.1-15.1) 11/24/24 01:11 Plt Count 166 10^3/cmm (157-399) 11/24/24 01:11 MPV 11.0 fL (7.4-10.4) H 11/24/24 01:11 Neut % (Auto) 37.5 % 11/24/24 01:11 Lymph % (Auto) 47.1 % 11/24/24 01:11 [place] % (Auto) 12.0 % 11/24/24 01:11 Eos % (Auto) 2.3 % 11/24/24 01:11 Baso % (Auto) 0.8 % 11/24/24 01:11 Neut # (Auto) 1.44 10^3/uL (1.8-7.7) L 11/24/24 01:11 Lymph # (Auto) 1.8 10^3/uL (0.8-4.8) 11/24/24 01:11 [place] # (Auto) 0.5 10^3/uL (0.2-0.9) 11/24/24 01:11 Eos # (Auto) 0.1 10^3/uL (0.0-0.8) 11/24/24 01:11 Baso # (Auto) 0.0 10^3/uL (0.0-0.1) 11/24/24 01:11 Nucleated RBC % (auto) 0 % 11/24/24 01:11 Nucleated RBCs # 0.0 /100WBC 11/24/24 01:11 Sodium 137 mmol/L (136-145) 11/24/24 01:11 Potassium 3.7 mmol/L (3.5-5.1) 11/24/24 01:11 Chloride 100 mmol/L (98-107) 11/24/24 01:11 Carbon Dioxide 28 mmol/L (22-29) 11/24/24 01:11 Anion Gap 12.7 (5-19) 11/24/24 01:11 BUN 15 mg/dL (6-20) 11/24/24 01:11 Creatinine 0.6 mg/dL (0.5-0.9) 11/24/24 01:11 GFR Calculation 105.0 mL/min (90-130) 11/24/24 01:11 Glucose 127 mg/dL (65-115) H 11/24/24 01:11 Calculated Osmolality 286 mOsm/kg (285-295) 11/24/24 01:11 Calcium 8.9 mg/dL (8.5-10.5) 11/24/24 01:11 Total Bilirubin 0.5 mg/dL (0.15-1.2) 11/24/24 01:11 AST 25 U/L (0-32) 11/24/24 01:11 ALT 17 U/L (0-33) 11/24/24 01:11 Alkaline Phosphatase 86 U/L (35-105) 11/24/24 01:11 Total Protein 6.6 g/dL (6.6-8.7) 11/24/24 01:11 Albumin 4.2 g/dL (3.5-5.2) 11/24/24 01:11 Globulin 2.4 g/dL (1.3-4.6) 11/24/24 01:11 Urine Color Yellow (Yellow) 11/24/24 00:47 Urine Appearance Clear (CLEAR) 11/24/24 00:47 Urine pH 5.5 (5-7) 11/24/24 00:47 Ur Specific [place] 1.022 (1.005-1.030) 11/24/24 00:47 Urine Protein Negative (Negative) 11/24/24 00:47 Urine Glucose (UA) Negative (Normal) 11/24/24 00:47 Urine Ketones 1+ (Negative) H 11/24/24 00:47 Urine Blood Negative (Negative) 11/24/24 00:47 Urine Nitrate Negative (Negative) 11/24/24 00:47 Urine Bilirubin Negative (Negative) 11/24/24 00:47 Urine Urobilinogen 1.0 mg/dL (Negative) 11/24/24 00:47 Ur Leukocyte Esterase Negative (Negative) 11/24/24 00:47 Urine RBC 0-2 /hpf (0-2) 11/24/24 00:47 Urine WBC 0-5 /hpf (0-5) 11/24/24 00:47 Ur Squamous Epith Cells 0-5 /hpf (0-5) 11/24/24 00:47 Amorphous Sediment Not Reportable 11/24/24 00:47 Urine Bacteria None seen /hpf (NONE) 11/24/24 00:47 Hyaline Casts 0.81 /lpf 11/24/24 00:47 Salicylates < 0.3 mg/dL (3-10) L 11/24/24 01:11 Urine Opiates Screen Negative ng/mL (Negative) 11/24/24 00:47 Acetaminophen < 5.0 ug/mL (10-30) L 11/24/24 01:11 Ur Barbiturates Screen Negative ng/mL (Negative) 11/24/24 00:47 Ur Phencyclidine Scrn Negative ng/mL (Negative) 11/24/24 00:47 Ur Amphetamines Screen Positive ng/mL (Negative) H 11/24/24 00:47 U Benzodiazepines Scrn Negative ng/mL (Negative) 11/24/24 00:47 Urine Cocaine Screen Negative ng/mL (Negative) 11/24/24 00:47 U Marijuana (THC) Screen Negative ng/mL (Negative) 11/24/24 00:47 Ethyl Alcohol < 10 mg/dL (0-10) 11/24/24 01:11 No radiology studies performed this visit Discharge Plan Discharge Patient Disposition: Admitted As Inpatient Admit Provider: Juni Abraham Clinical Impression: Suicidal ideation Condition: Stable Coding Level of Care Code ED Double Needle Operator Lockstitch for [facility] Hawkins
--- NOTE | 2024-11-24 03:01 | PC.NURSE ---
96 HH Pt served with copy of 96 hour hold by this RN and additional RN. Pt A&Ox3, pt denied need for further education. Pt asked when will I get my Cymbalta? Pt pleasant and eating jello at this time.
[2024-11-24 03:21] VITALS: BP 122/81; PULSE 92; RESP 15; O2SAT 96
[2024-11-24 04:14] VITALS: BP 100/58; PULSE 81; RESP 18; TEMP 36.5; O2SAT 96
[2024-11-24] MEDS: ibuprofen 600 mg Tablet PO ×2 (05:39→20:30)
[2024-11-24 06:00] VITALS: RESP 16
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
--- NOTE | 2024-11-24 06:24 | PC.NURSE ---
pt resting vitals not taken charge notified
--- OUTSIDE RECORDS SUMMARY | 2024-11-24 07:08 | XMS_ITS ---
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 Name Role Phone Raoul Montes De Oca Primary Care Provider Allergies Allergen (clinical drug ingredient) Drug/Non Drug Allergy documented on EMR Reaction Allergy Type Onset Date Status citalopram CeleXA Unknown Drug Allergy Active codeine Codeine Unknown Drug Allergy Active morphine Morphine Unknown Drug Allergy Active REASON FOR VISIT 1 MONTH F/U Medications Medication SIG (Take, Route, Frequency, Duration) Notes Start Date End Date Status DULoxetine HCl 60 MG 1 capsule Orally On ce a day for 90 days 07/02/2024 Active Pregabalin 100 MG 1 capsule Orally BID for 30 days 10/20/2024 02/17/2025 Active Metoprolol Tartrate 25 MG 1 tablet with food Orally Twice a day Not-Taking Lurasidone HCl 40 MG 1 tablet in the jorge luis dari with food Orally Once a day for 30 day(s) 11/17/2024 Active Stool Softener 100 MG 1 capsule as neede d Orally Once a day Active Milk of Magnesia 7.75 % 5 mL at least 4 hours between doses as needed Orally Four times a day Not-Taki ng Metoprolol Tartrate 25 MG 1 tablet with food Orally Once a day Active LORazepam 0.5 MG 1 Orally every 12 ho urs as needed for 30 days 07/02/2024 Not-Taking Social History Tobacco Use: Social History Observation Description Date Details (start date - stop date) Current Smoker NA - NA PHQ-9 Question Answer Notes Little interest or pleasure in doing things Karlie ral days Feeling down, depressed, or hopeless Not at all Trouble falling or staying asleep, or sleeping t oo much Several days Feeling tired or having little energy Several da ys Poor appetite or overeating Several days Feeling bad about yourself, or that you are a failure, or have let yourself or your family down Several days Trouble concentrating on thi ngs, such as reading the newspaper or watching television More than half the days Moving or speaking so slowly that other people could have noticed. Or the opposite ? being so fidgety or restless that you have been moving around a lot more than usual Not at all Thoughts that you would be b zenaida off , or of hurting yourself in some way Not at all Total Score 7 Interpretation Mild Depression Tobacco Control (Standard) Question Answer Notes Tobacco use: Current smoker How often do you smoke cigarettes? Every day How many cigarettes a day do you smoke? 08-06 Section Notes: Dep/tob - 07/01/24 Vital Signs Temperature 100.2 degrees Fahrenheit 025 Blood pressure systolic 120 mm Hg 11/18/19 25 Blood pressure diastolic 74 mm Hg 025 Heart Rate 71 /min 11/17/2024 Height 61 in 11/17/2024 Weight 175.2 lbs 11/17/2024 BMI 33.1 kg/m2 11/17/2024 Oximetry 97 % 11/17/2024 Height-cm 154.94 cm 11/17/2024 Weight-kg 79.47 kg 11/17/2024 Encounters Encounter Location Date Provider Diagnosis [facility] [address] [place] [id number] 11/17/2024 Raoul Montes De Oca BRAEDEN (generalized anxiety disorder) F41.1 ; Essential hypertension I10 and Depression screen Z13.31 Assessments Encounter Date Diagnosis (ICD Code) Assessment Notes Treatment Notes Treatment Clinical Notes Section Notes 11/17/2024 BRAEDEN (generalized anxiety disorder) (ICD-10 - F41.1) 11/17/2024 Essential hypertension (ICD-10 - I10) 11/17/2024 Depression screen (ICD-10 - Z13.31) Plan Of Treatment Medication Medication Name Sig Start Date Stop Date Notes Lurasidone HCl 40 MG 1 tablet in the jorge luis dari with food Orally Once a day for 30 day(s) 11/17/2024 Next Appt Details Follow Up: 4 Weeks, Reason: Provider Name:Raoul Montes De Oca, 12/22/2024 01:20:00 PM, [address] [place] [address], [id number], Progress Notes * WAYNE MCHUGHOB:1970 (54 yo F)Acc No.[id number]:11/17/2024 Progress Notes Patient:?VIKRAM MCHUGH Provider:?Raoul Montes De Oca MD :1970???Age:54 Y???Sex:Female D ate:11/17/2024 Address:[address] [place], [place] [id number] Check Out:01:29 PM [employer]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 ?Insomnia?The symptoms have been occurring?for months ?Severity of the symptoms?is severe ?Weight gain?The weight gain began?4-5 weeks ago ?The weight gain is described as?gradual, more than 25 pounds ?Associated factors include?anxiety, depression, stress * ROS:?General/Constitutional:?Patient denies?fatigue , fever , night sweats.?Hematology:?Patient denies?easy bruising , bleeding problems , recent transfusion.?Respiratory:?Patient denies?cough , shortness of breath , wheezing.?Cardiovascular:?Patient denies?chest pain , irregular heartbeat , swelling in hands/feet.?Gastrointestinal:?Patient denies?abdominal pain, bloating , constipation , diarrhea , heartburn , blood in stool , nausea , vomiting.?Genitourinary:?Patient denies?painful urination , blood in the urine , difficulty urinating.?ENT:?Patient denies?ear pain , nosebleed, runny nose,?sore throat.?Musculoskeletal:?Patient denies?arthritis\arthralgia , back pain , joint stiffness , muscle aches.?Skin:?Patient denies?skin lesion(s) , rash , acne.?Neurologic:?Patient denies?dizziness , fainting , headache , memory loss , seizures.?Psychiatric:?Patient denies?anxiety , depressed mood , suicidal thoughts.?Admits?Difficulty sleeping.?follow up - [facility]. * Medical History:? * Surgical History:?left knee replacement R lower leg surgery DNC gall bladder removal * Hospitalization/Major Diagno stic Procedure:?No Hospitalization History. * Family History:?Father: aliv e, Parkinsons, heart, anxiety.?Mother: alive, dementia.? * Social History:?Tobacco Use:?Tobacco Control (Standard)?Tobacco use:?Current smoker ?How often do you smoke cigarettes??Every day ?How many cigarettes a day do you smoke??11-20 ???Depression Screening:?PHQ-9?Little interest or pleasure in doing things?Several days ?Feeling down, depressed, or hopeless?Not at all ?Trouble falling or staying asleep, or sleeping too much?Several days ?Feeling tired or having little energy?Several days ?Poor appetite or overeating?Several days ?Feeling bad about yourself, or that you are a failure, or have let yourself or your family down?Several days ?Trouble concentrating on things, such as reading the newspaper or watching television?More than half the days ?Moving or speaking so slowly that other people could have noticed. Or the opposite ? being so fidgety or restless that you have been moving around a lot more than usual?Not at all ?Thoughts that you would be better off , or of hurting yourself in some way?Not at all ?Total Score?7 ?Interpretation?Mild Depression ?Depression screening findings?Findings?Positive (5+ without suicidality) Completed 07/01/24 ???Dep/tob - 07/01/24. * Medications:?TakingStool Sof tener 100 MG Capsule 1 capsule as needed Orally Once a day Metoprolol Tartrate 25 MG Tablet 1 tablet with food Orally Once a day DULoxetine HCl 60 MG Capsule Delayed Release Sprinkle 1 capsule Orally Once a day Pregabalin 100 MG Capsule 1 capsule Orally BID , stop date 02/17/2025Taking Stool Softener 100 MG Capsule 1 capsule as needed Orally Once a day Taking Metoprolol Tartrate 25 MG Tablet 1 tablet with food Orally Once a day Taking DULoxetine HCl 60 MG Capsule Delayed Release Sprinkle 1 capsule Orally Once a day Taking Pregabalin 100 MG Capsule 1 capsule Orally BID , stop date 02/17/2025Not-TakingMilk of Magnesia 7.75 % Suspension 5 mL at least 4 hours between doses as needed Orally Four times a day LORazepam 0.5 MG Tablet 1 Orally every 12 hours as needed Metoprolol Tartrate 25 MG Tablet 1 tablet with food Orally Twice a day Medication List reviewed and reconciled with the patientNot-Taking Milk of Magnesia 7.75 % Suspension 5 mL at least 4 hours between doses as needed Orally Four times a day Not-Taking LORazepam 0.5 MG Tablet 1 Orally every 12 hours as needed Not-Taking Metoprolol Tartrate 25 MG Tablet 1 tablet with food Orally Twice a day Medication List reviewed and reconciled with the patient * Allergies:?CodeineMorphineCe leXAno[Allergies Verified] Objective: * Vitals:?Ht: 61 in, Wt:175.2l bs, Wt-k.47 kg, BMI:33.1Index, Temp:100.2F, BP:120/74mm Hg, HR:71/min, Oxygen sat %:97%, O2 Source: RA, Pain scale: 0 1-10, Ht-cm: 154.94 cm. * Examination: ???Examination: ?GENERAL APPEARANCE:?Awake/alert. No apparent distress.?HEART:?Regular rate and rhythm without rubs, murmurs, or gallops. PMI nondisplaced.?LUNGS:?Clear to auscultation without rales, rhonchi, wheezing, tachypnea or air hunger.?ABDOMEN:?Soft, nontender, nondistended with active bowel sounds X4. No HSM or masses.?EXTREMITIES:?No clubbing, cyanosis, or edema.? Assessment: * Assessment: 1.?BRAEDEN (generalized anxiety disorder) - F41.1 (Primary)???2.?Essential hypertension - I10???3.?Depression screen - Z13.31??? Plan: * Treatment: * Procedure Codes:? * Preventive Medicine:? ??Fall Risk Assessment:?Fall Risk Assessment?Fall Risk Assessment?No falls in the past year None ??Screenings:?BREAST CANCER SCREENING:?Date of most recent screening:?Never ?CERVICAL CANCER SCREENING:?Date of the last PAP Smear :?8+ years ?COLORECTAL CANCER SCREENING:?Date of last colonoscopy?Has never been done ?DEPRESSION SCREENING:?Date of most recent screening:?07/01/2024 ?VACCINATIONS:?Influenza vaccinations:?does not take shot ???11/17/24. * Follow Up:?4 Weeks Forms: * Billing Information: * Visit Code:? 67799 Office Visit, Est Pt., Level 3. * Procedure Codes:? Care Plan Details* * Electronically signed by [facility] alejandro Montes De Oca MD on 11/19/2024 at 04:30 PM [employer] SHARPSHO[employer]ER Sign off status: Completed true * Provider:?Raoul Montes De Oca MD Pedro e:?11/17/2024 Generated for Printi ng/Jaciel/eTransmitting on:?11/24/2024 07:07 AM CDT History and Physical Notes * HPI (History of Present Illness) Category Sub-Category Detail Notes Category Not es Patient Complaints Weight gain The weight ga in began: 4-5 weeks ago The weight gain is described as: gradual , more than 25 pounds Associated factors include: anxiety, dep ression, stress Insomnia The symptoms have been occurring : for months Severity of the symptoms: is severe Examination Category Sub-Category Detail Notes Category Not es Examination GENERAL APPEARANCE: Awake/alert. No appar ent distress HEART: Regular rate and rhy thm without rubs, murmurs, or gallops. PMI nondisplaced ABDOMEN: Soft, nontender, non distended with active bowel sounds X4. No HSM or masses EXTREMITIES: No clubbing, cyanosi s, or edema LUNGS: Clear to auscultatio n without rales, rhonchi, wheezing, tachypnea or air hunger
--- OUTSIDE RECORDS SUMMARY | 2024-11-24 07:08 | XMS_ITS ---
Author Organization [facility] Address [address] [place] [address] Care Team Providers Care Reticle Printer Name Role Phone Raoul Montes De Oca Primary Care Provider [phone] Allergies Allergen (clinical drug ingredient) Drug/Non Drug Allergy documented on EMR Reaction Allergy Type Onset Date Status citalopram CeleXA Unknown Drug Allergy Active codeine Codeine Unknown Drug Allergy Active morphine Morphine Unknown Drug Allergy Active REASON FOR VISIT CHECK UP Medications Medication SIG (Take, Route, Frequency, Duration) Notes Start Date End Date Status Metoprolol Tartrate 25 MG 1 tablet with food Orally Once a day Active Milk of Magnesia 7.75 % 5 mL at least 4 hours between doses as needed Orally Four times a day Active Metoprolol Tartrate 25 MG 1 tablet with food Orally Twice a day Not-Taking LORazepam 0.5 MG 1 Orally every 12 ho urs as needed for 30 days 07/02/2024 Active Pregabalin 100 MG 1 capsule Orally BID for 30 days 10/20/2024 02/17/2025 Active Stool Softener 100 MG 1 capsule as neede d Orally Once a day Active DULoxetine HCl 60 MG 1 capsule Orally On ce a day for 90 days 07/02/2024 Active Social History Tobacco Use: Social History Observation Description Date Details (start date - stop date) Current Smoker NA - NA Tobacco Control (Standard) Question Answer Notes Tobacco use: Current smoker How often do you smoke cigarettes? Every day How many cigarettes a day do you smoke? - Section Notes: Dep/tob - 07/01/24 Vital Signs Temperature 99.3 degrees Fahrenheit 10/20/19 25 Blood pressure systolic 120 mm Hg 10/20/19 25 Blood pressure diastolic 70 mm Hg 025 Heart Rate 72 /min 10/20/2024 Height 61 in 10/20/2024 Weight 148.4 lbs 10/20/2024 BMI 28.04 kg/m2 10/20/2024 Oximetry 98 % 10/20/2024 Height-cm 154.94 cm 10/20/2024 Weight-kg 67.31 kg 10/20/2024 Encounters Encounter Location Date Provider Diagnosis [facility] [address] [phone] 10/20/2024 Raoul Montes De Oca BRAEDEN (generalized anxiety disorder) F41.1 ; Essential hypertension I10 and Abdominal wall hernia K43.9 Assessments Encounter Date Diagnosis (ICD Code) Assessment Notes Treatment Notes Treatment Clinical Notes Section Notes 10/20/2024 BRAEDEN (generalized anxiety disorder) (ICD-10 - F41.1) 10/20/2024 Essential hypertension (ICD-10 - I10) 10/20/2024 Abdominal wall hernia (ICD-10 - K43.9) Plan Of Treatment Medication Medication Name Sig Start Date Stop Date Notes Pregabalin 100 MG 1 capsule Orally BID for 30 days 025 02/17/2025 DULoxetine HCl 60 MG 1 capsule Orally On ce a day for 90 days 07/02/2024 Next Appt Details Follow Up: 4 Weeks, Reason: Provider Name:Raoul Montes De Oca, 12/22/2024 01:20:00 PM, [address] [place] [address], [phone], Progress Notes * JOSEBERNARDINO DAMONLYNNEOB:1970 (53 yo F)Acc No.[id number]:10/20/2024 Progress Notes Patient:?VIKRAM COLE Provider:?Raoul Montes De Oca MD :1970???Age:53 Y???Sex:Female D ate:10/20/2024 Address:[address] [place], [place] [phone] 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 Patient here for follow up - both legs hurting - talk about taking Lyrica - has been gaining weight - Lorazepam does not seem to be helping - has been out for a month - unable to get here for appointments. * ROS:?General/Constitutional:?Patient denies?fatigue , fever , night [...] , seizures.?Psychiatric:?Patient denies?anxiety , depressed mood , difficulty sleeping , suicidal thoughts.?legs hurting - medication - weight loss. * Medical History:? * Surgical History:?left knee replacement R lower leg surgery DNC gall bladder removal * Hospitalization/Major Diagno stic Procedure:?No Hospitalization History. * Family History:?Father: aliv e, Parkinsons, heart, anxiety.?Mother: alive, dementia.? * Social History:?Tobacco Use:?Tobacco Control (Standard)?Tobacco use:?Current smoker ?How often do you smoke cigarettes??Every day ?How many cigarettes a day do you smoke??11-20 ???Dep/tob - 07/01/24. * Medications:?TakingStool Sof tener 100 MG Capsule 1 capsule as needed Orally Once a day Milk of Magnesia 7.75 % Suspension 5 mL at least 4 hours between doses as needed Orally Four times a day Metoprolol Tartrate 25 MG Tablet 1 tablet with food Orally Once a day LORazepam 0.5 MG Tablet 1 Orally every 12 hours as needed DULoxetine HCl 60 MG Capsule Delayed Release Sprinkle 1 capsule Orally Once a day Taking Stool Softener 100 MG Capsule 1 capsule as needed Orally Once a day Taking Milk of Magnesia 7.75 % Suspension 5 mL at least 4 hours between doses as needed Orally Four times a day Taking Metoprolol Tartrate 25 MG Tablet 1 tablet with food Orally Once a day Taking LORazepam 0.5 MG Tablet 1 Orally every 12 hours as needed Taking DULoxetine HCl 60 MG Capsule Delayed Release Sprinkle 1 capsule Orally Once a day Not-TakingMetoprolol Tartrate 25 MG Tablet 1 tablet with food Orally Twice a day Medication List reviewed and reconciled with the patientNot-Taking Metoprolol Tartrate 25 MG Tablet 1 tablet with food Orally Twice a day Medication List reviewed and reconciled with the patient * Allergies:?CodeineMorphineCe leXAno[Allergies Verified] Objective: * Vitals:?Ht: 61 in, Wt:148.4l bs, Wt-k.31 kg, BMI:28.04Index, Temp:99.3F, BP:120/70mm Hg, HR:72/min, Oxygen sat %:98%, O2 Source: RA, Pain scale: 6 1-10, Ht-cm: 154.94 cm. * Examination: ???Examination: ?GENERAL APPEARANCE:?Awake/alert. No apparent distress.?HEART:?Regular rate and rhythm without rubs, murmurs, or gallops. PMI nondisplaced.?LUNGS:?Clear to auscultation without rales, rhonchi, wheezing, tachypnea or air hunger.?ABDOMEN:?Soft, nontender, nondistended with active bowel sounds X4. No HSM or masses.? She has a bulging reduceable hernia? RLQ.? Assessment: * Assessment: 1.?BRAEDEN (generalized anxiety disorder) - F41.1 (Primary)???2.?Essential hypertension - I10???3.?Abdominal wall hernia - K43.9??? Plan: * Treatment: * Procedure Codes:? * Follow Up:?4 Weeks Forms: * Billing Information: * Visit Code:? 55515 Office Visit, Est Pt., Level 4. * Procedure Codes:? Care Plan Details* * H CRYSTAL MOLDER Sign off status: Completed true * Provider:?Raoul Montes De Oca MD Pedro e:?10/20/2024 Generated for Printi ng/Faxing/eTransmitting on:?11/24/2024 07:08 AM CDT History and Physical Notes * Examination Category Sub-Category Detail Notes Category Not es Examination GENERAL APPEARANCE: Awake/alert. No appar ent distress HEART: Regular rate and rhy thm without rubs, murmurs, or gallops. PMI nondisplaced ABDOMEN: Soft, nontender, non distended with active bowel sounds X4. No HSM or masses. She has a bulging reduceable hernia RLQ LUNGS: Clear to auscultatio n without rales, rhonchi, wheezing, tachypnea or air hunger
--- OUTSIDE RECORDS SUMMARY | 2024-11-24 07:08 | XMS_ITS ---
Author Organization [facility] Address [address] [place] [address] Care Team Providers Care Management Intern Name Role Phone Raoul Montes De Oca Primary Care Provider REASON FOR VISIT MEDICATION Encounters Encounter Location Date Provider Diagnosis [facility] [address] [phone] 09/09/2024 Raoul Montes De Oca Plan Of Treatment Next Appt Details Provider Name:Raoul Montes De Oca, 12/22/2024 01:20:00 PM, [address], [phone], Progress Notes * WAYNE MCHUGHOB:1970 (54 yo F)Acc No.[id number]:09/09/2024 Progress Notes Patient:?VIKRAM MCHUGH Provider:?Raoul Montes De Oca MD :1970???Age:53 Y???Sex:Female D ate:09/09/2024 Address:[address] [place] [address], [phone] Subjective: * Chief Complaints: * ???1. MEDICATION. * Medical History:? Objective: * Vitals:? Assessment: Plan: * Treatment: Forms: * Billing Information: * Visit Code:? * Procedure Codes:? Care Plan Details* * Electronic signature of Olga Montes De Oca MD on 11/24/2024 at 07:08 AM CDT Sign off status: Pending * Provider:?Raoul Montes De Oca MD Pedro e:?09/09/2024 Generated for Lavelle purvis/Jaciel/Denice on:?11/24/2024 07:08 AM CDT
--- OUTSIDE RECORDS SUMMARY | 2024-11-24 07:08 | XMS_ITS | Patient Health Record ---
Author Organization [facility] Address [address] [place] [address] Care Team Providers Care Associate Professor Of Geography Name Role Phone Raoul Montes De Oca Primary Care Provider Allergies Allergen (clinical drug ingredient) Drug/Non Drug Allergy documented on EMR Reaction Allergy Type Onset Date Status citalopram CeleXA Unknown Drug Allergy Active codeine Codeine Unknown Drug Allergy Active morphine Morphine Unknown Drug Allergy Active Reason For Referral Reason Painful hernia. Diagnosis 1 Abdominal wall herni a (K43.9) Referral Organization [facility] Referring Provider First Name Zeeshan win Referring Provider Last Name Falguni Referring Provider Speciality Internal M edicine Referred Provider Gloria Rodas Referred Provider Specialty General Surg iza General Notes Trish Cervantes 04:13:53 PM >faxed Don Canales Heidi 08/11/2024 10:11:27 AM >[facility] Referral Priority Routine Referral Appointment Date 08/07/2024 Reason BRAEDEN Diagnosis 1 BRAEDEN (generalized anx iety disorder) (F41.1) Referral Organization [facility] Referring Provider First Name Zeeshan win Referring Provider Last Name Falguni Referring Provider Speciality Internal M edicine Referred Provider Catie Ortega Referred Provider Specialty Mental healt h counseling General Notes Trish Cervantes 04:47:14 PM >faxed Catie Ortega Referral Priority Routine Medications Medication SIG (Take, Route, Frequency, Duration) Notes Start Date End Date Status Milk of Magnesia 7.75 % 5 mL at least 4 hours between doses as needed Orally Four times a day Not-Taki ng Metoprolol Tartrate 25 MG 1 tablet with food Orally Once a day Active LORazepam 0.5 MG 1 Orally every 12 ho urs as needed for 30 days 07/02/2024 Not-Taking DULoxetine HCl 60 MG 1 capsule Orally [...] neede d Orally Once a day Active Social History Tobacco Use: Social History [...] cigarettes a day do you smoke? - AUDIT-C (Standard) Question Answer Notes Did you have a drink contain ing alcohol in the past year? Yes How often did you have six o r more drinks on one occasion in the past year? Less than monthly (1 point) How many drinks did you have on a typical day when you were drinking in the past year? 1 or 2 drinks (0 point) How often did you have a dri nk containing alcohol in the past year? Monthly or less (1 point) Points 2 Interpretation Negative Section Notes: Dep/tob - 07/01/24 Dep/tob - 07/01/24 07/01/24 07/01/24 Problems Problem Type SNOMED Code ICD Code Onset Dates Problem Status W/U Status Risk Notes Problem 16866818 Essential hypertension (I10) Active confirmed Problem [id number] BRAEDEN (generalized anxiety disorder) (F41.1) Active confirmed Problem [id number] Abdominal wall hernia (K43.9) Active confirmed Vital Signs Heart Rate 71 /min 11/17/2024 Temperature 100.2 degrees Fahrenheit 11/17/2024 Height-cm 154.94 cm 11/17/2024 Oximetry 97 % 11/17/2024 Blood pressure diastolic 74 mm Hg 11/17/2024 Weight-kg 79.47 kg 11/17/2024 Height 61 in 11/17/2024 Blood pressure systolic 120 mm Hg 11/17/2024 Weight 175.2 lbs 11/17/2024 BMI 33.1 kg/m2 11/17/2024 Encounters Encounter Location Date Provider Diagnosis [facility] [address] [place] [phone] 07/02/2024 Raoul Montes De Oca BRAEDEN (generalized anxiety disorder) F41.1 ; Essential hypertension I10 ; Abdominal wall hernia K43.9 and Depression screen Z13.31 [facility] [address] [phone] 07/22/2024 Raoul Montes De Oca BRAEDEN (generalized anxiety disorder) F41.1 and Essential hypertension I10 [facility] [address] [phone] 10/20/2024 Raoul Montes De Oca BRAEDEN (generalized anxiety disorder) F41.1 ; Essential hypertension I10 and Abdominal wall hernia K43.9 [facility] [address] [phone] 11/17/2024 Raoul Montes De Oca BRAEDEN (generalized anxiety disorder) F41.1 ; Essential hypertension I10 and Depression screen Z13.31 [facility] [address] [phone] 07/02/2024 Raoul Montes De Oca [facility] [address] [phone] 07/02/2024 Raoul Montes De Oca Assessments Encounter Date Diagnosis (ICD Code) Assessment Notes Treatment Notes Treatment Clinical Notes Section Notes 07/22/2024 BRAEDEN (generalized anxiety disorder) (ICD-10 - F41.1) 10/20/2024 BRAEDEN (generalized anxiety disorder) (ICD-10 - F41.1) 11/17/2024 BRAEDEN (generalized anxiety disorder) (ICD-10 - F41.1) 07/02/2024 Essential hypertension (ICD-10 - I10) 07/02/2024 BRAEDEN (generalized anxiety disorder) (ICD-10 - F41.1) 07/02/2024 Abdominal wall hernia (ICD-10 - K43.9) 07/22/2024 Essential hypertension (ICD-10 - I10) 11/17/2024 Essential hypertension (ICD-10 - I10) 10/20/2024 Essential hypertension (ICD-10 - I10) 10/20/2024 Abdominal wall hernia (ICD-10 - K43.9) 11/17/2024 Depression screen (ICD-10 - Z13.31) 07/02/2024 Depression screen (ICD-10 - Z13.31) Plan Of Treatment Next Appt Details Provider Name:Raoul Montes De Oca, 12/22/2024 01:20:00 PM, [address] [place] [address], [phone], Insurance Providers Payer Name Payer Address Payer Phone Subscriber Number Group Number Insured Name Patient Relationship to Insured Coverage Start Date Coverage End Date [place] Medicaid [address] [place] [phone] [id number] Self - patient is the insured Medical (General) History Medical History History ICD Code High Blood Pressure anxiety Depression PTSD bowel obstruction emphysema COPD hernia Surgical History Surgery Date(Month/Year) left knee replacement R lower leg surgery DNC gall bladder removal
[2024-11-24] MEDS: pregabalin 100 mg Capsule PO ×2 (07:53→20:30)
[2024-11-24] MEDS: metoprolol tartrate 25 mg Tablet PO (07:53)
[2024-11-24] MEDS: duloxetine 60 mg Capsule PO (07:53)
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
[2024-11-24] MEDS: diphenhydrAMINE 50 mg Capsule PO ×2 (08:23→20:30)
--- NOTE | 2024-11-24 08:24 | PC.NURSE ---
PRN BENADRYL 50 MG GIVEN PO PER PT C/O DISCOMFORT FROM ITCHING AROUND GROIN AREA
[2024-11-24 14:00] VITALS: BP 132/74; PULSE 86; RESP 20; TEMP 36.9; O2SAT 98
[2024-11-24] MEDS: lurasidone 20 mg Tablet 40 MG PO (18:33)
--- NOTE | 2024-11-24 18:44 | PC.NURSE ---
Addendum entered by Donna Herrera LPN 11/24/24 18:47: PICKED UP THIS MED FROM PHARMACY 11/21/24 Original Note: VINNY CALLED TO CLARIFY MED, USES [facility] IN [place], [place]. PICKED UP BUPRENORPHINE 8 MG TABLET TID PRN.
[2024-11-24 20:08] VITALS: BP 96/51; PULSE 83; RESP 18; TEMP 36.6; O2SAT 94
[2024-11-24] MEDS: hyDROXYzine 25 mg Capsule PO (20:31)
[2024-11-24] MEDS: nicotine 2 mg Gum BUCCAL (20:31)
[2024-11-25 06:00] VITALS: BP 105/68; PULSE 77; RESP 16; TEMP 36.4; O2SAT 94
[2024-11-25] MEDS: nicotine 2 mg Gum BUCCAL ×2 (06:33→21:48)
[2024-11-25] MEDS: ibuprofen 600 mg Tablet PO ×2 (08:18→21:29)
[2024-11-25] MEDS: duloxetine 60 mg Capsule PO (08:19)
[2024-11-25] MEDS: pregabalin 100 mg Capsule PO ×2 (08:19→21:21)
--- NOTE | 2024-11-25 08:23 | PC.NURSE ---
Metoprolol held for BP of 93/55
--- NOTE | 2024-11-25 08:40 | PC.NURSE ---
Morning assessment During morning assessment, patient denies anxiety, suicidal thoughts, homicidal thoughts, and depression. When asked about AVH, patient stated I don't know . Patient reports left shoulder and back pain that she rates 6/10. Patient kept dozing off during morning assessment, stated I'm just so tired .
--- NOTE | 2024-11-25 08:53 | PC.NURSE ---
Verified from pharmacist at [facility] in [place], [place]. Patient at suboxone sent in by Dr. Hakan Richardson on 11/21/24. [address] Disla verbally approved restarting medication
[2024-11-25] MEDS: buprenorphine-naloxone 4-1 mg Film 2 EACH SUBLINGUAL ×3 (09:05→21:21)
[2024-11-25 14:00] VITALS: BP 104/64; PULSE 88; RESP 18; TEMP 36.8; O2SAT 93
--- NOTE | 2024-11-25 14:05 | W.PM.NPUPNS ---
Subjective NPU Subjective: 54-year-old female with a history of methamphetamine abuse admitted with suicidal ideation and depression. The patient had reported that she had only been taking Cymbalta 60 mg daily and reported no clear history of steve. She had reported that she had been on Suboxone for addiction and these medicines were confirmed. She had continued to endorse some feelings of hopelessness. She had stated that she would likely be going to penitentiary based on her drug-related charges and stated that she was likely to go to penitentiary for 8 years. She had been excessively tired as she continued at times to appear excessively sedated and often closing her eyes during the interview stating that she was tired. Mental Status Exam MSE Comments: Patient is a casually dressed white female who appeared her stated age with fleeting eye contact who was requiring repeated attempts to awaken if she was appearing in and out of consciousness. She was alert and oriented to person and place and time today. Her mood was described as depressed. Her affect was restricted in range and mood congruent. Her hygiene appeared poor. She appeared older than her stated age. Her speech was slurred at times with decreased in rate and decreased in volume. There was no evidence of any abnormal involuntary motor movements, tics, or tremors appreciated. Her attention span appeared impaired. She endorsed suicidal ideation with no plan today. She denied any homicidal ideation. She denied any auditory visual hallucinations.She did not appear to be responding internal stimuli. There was no clear evidence of delusional thinking. Her thought process was mostly linear and logical. Her recent and remote memory were both impaired. Her insight is poor. Her judgment is poor. Her impulse control is poor. Vitals/I&O/Wt Last Vital Signs Temp 97.6 F 11/25/24 06:00 Pulse 77 11/25/24 06:00 Resp 16 11/25/24 06:00 BP 105/68 11/25/24 06:00 Pulse Ox 94 11/25/24 06:00 O2 Del Method Room Air 11/25/24 06:00 11/24/24 11/25/24 11/25/24 22:59 06:59 14:59 Intake Total 0 / 0 Balance 0 / 0 Weight last 48 hrs Weight 65.771 kg Data NPU 11/24/24 01:11 11/24/24 01:11 A&P Assessment and plan (1) Major depression, chronic: (2) Suicidal ideation: (3) Methamphetamine abuse: Plan 54-year-old female positive for amphetamine endorsing recent use of methamphetamine currently endorsing depressed mood and suicidal ideation with increase stress of potential incarceration. #1.? Engage patient in individual milieu and group therapy. #2?? Recommend sober living treatment at the highest level of care to which the patient is willing to commit #3??? Increase cymbalta to 90mg daily, restart suboxone as prescribed-8mg SL tid. #4?? TO-15 minute checks? #5?? Will attempt to gather collateral information, patient under involuntary hold at this time. PDMP PDMP Reviewed: Not Reviewed Involuntary Hold Information Hold Status: Legal Status: 96 Hour Hold Date/Time Hold Expires: 11/28/2024 @ 0145 Attestations NPU Medical Necessity Statement*: Inpatient hospitalization is medically necessary and deemed to be the clinically appropriate intervention at this time. Medications will be adjusted as indicated. The patient's likely length of stay is 5-7 days. Coding Level of Care Code Acute Code for [facility] Fwd Diagnoses Major depression, chronic F32.9 Suicidal ideation R45.851 Methamphetamine abuse F15.10
--- NOTE | 2024-11-25 15:57 | PC.NURSE ---
Wound Patient reports blood coming from laceration on left leg. This nurse cleaned the area with sterilized water, dried the area with sterile gauze. Three steri-strips are still in place. Patient denies pain during the cleansing process. Minimal amount of dried blood cleaned from area; no active bleeding. Dr. Disla notified. Per Dr. Disla, this nurse is to apply triple antibiotic ointment and cover with a bandage; Dr. Disla will look at the wound tomorrow. No foul odors detected. No red streaks detected.
[2024-11-25] MEDS: lurasidone 20 mg Tablet 40 MG PO (17:58)
[2024-11-25 19:58] VITALS: BP 116/72; PULSE 89; RESP 17; TEMP 36.7; O2SAT 96
[2024-11-25] MEDS: hyDROXYzine 25 mg Capsule PO (21:20)
[2024-11-25] MEDS: diphenhydrAMINE 50 mg Capsule PO (21:29)
[2024-11-26 06:00] VITALS: BP 96/64; PULSE 89; RESP 18; TEMP 37.1; O2SAT 95
[2024-11-26] MEDS: nicotine 2 mg Gum BUCCAL (06:44)
[2024-11-26] MEDS: nicotine 21 mg Patch 1 PATCH TRANSDERMA (08:39)
[2024-11-26] MEDS: duloxetine 30 mg Capsule 90 MG PO (08:40)
[2024-11-26] MEDS: metoprolol tartrate 25 mg Tablet PO (08:40)
[2024-11-26] MEDS: hyDROXYzine 25 mg Capsule 50 MG PO (08:40)
[2024-11-26] MEDS: pregabalin 100 mg Capsule PO ×2 (08:40→20:19)
[2024-11-26] MEDS: buprenorphine-naloxone 4-1 mg Film 2 EACH SUBLINGUAL ×3 (08:40→20:19)
[2024-11-26] MEDS: ibuprofen 600 mg Tablet PO ×3 (08:42→20:21)
[2024-11-26 14:00] VITALS: BP 122/74; PULSE 76; RESP 18; TEMP 36.8; O2SAT 98
--- NOTE | 2024-11-26 15:11 | P.NPUPN_ITS ---
Subjective NPU 2 Subjective: 54-year-old female with a history of met hamphetamine abuse admitted with suicidal ideation and depression. The patient reported no cravings for opiates. She reported no side effects from the increase in Cymbalta. She continued to report depressed mood and reported having a few thoughts of suicide. She had reported concern about potentially being incarcerated for up to 8 years for her legal problems. She did report having a place to stay in the interim. She had endorsed some feelings of hopelessness and sadness. She had been more cooperative and less intrusive on the milieu with no acts of aggression appreciated. Mental Status Exam 2 MSE Comments: Patient is a casually dressed white female who appeared her stated age with improved eye contact awake and alert. She was alert and oriented to person and place and time today. Her mood was described as depressed. Her affect was restricted in range and mood congruent. Her hygiene appeared improved with poor dentition appreciated. She appeared older than her stated age. Her speech was slurred at times with decreased in rate and decreased in volume. There was no evidence of any abnormal involuntary motor movements, tics, or tremors appreciated. Her attention span appeared impaired. She endorsed no suicidal ideation today. She denied any homicidal ideation. She denied any auditory or visual hallucinations. She did not appear to be responding internal stimuli. There was no clear evidence of delusional thinking. Her thought process was mostly linear and logical. Her recent and remote memory were both impaired. Her insight is poor. Her judgment is poor. Her impulse control is poor. Vitals/I&O/Wt Last Vital Signs Temp 98.8 F 11/26/24 06:00 Pulse 89 11/26/24 06:00 Resp 18 11/26/24 06:00 BP 96/64 11/26/24 06:00 Pulse Ox 95 11/26/24 06:00 O2 Del Method Room Air 11/26/24 06:00 Data NPU 11/24/24 01:11 11/24/24 01:11 A&P Assessment and plan (1) Major depression, chronic: (2) Suicidal ideation: (3) Methamphetamine abuse: Plan 54-year-old female positive for amphetamine endorsing recent use of methamphetamine currently endorsing depressed mood and suicidal ideation with increase stress of potential incarceration. #1.? Engage patient in individual milieu and group therapy. #2?? Recommend sober living treatment at the highest level of care to which the patient is willing to commit #3??? Continue cymbalta 90mg daily, continue suboxone 8/2 SL tid. #4?? TO-15 minute checks? #5?? Will attempt to gather collateral information, patient under involuntary hold at this time. PDMP PDMP Reviewed: Not Reviewed Involuntary Hold Information 2 Hold Status: Legal Status: 96 Hour Hold Date/Time Hold Expires: 11/28/2024 @ 0145 Attestations NPU 2 Medical Necessity Statement*: Inpatient hospitalization is medically necessary and deemed to be the clinically appropriate intervention at this time. Medications will be adjusted as indicated. The patient's likely length of stay is 3-5 days. Coding Level of Care Code Acute Code for [facility] Fwd Diagnoses Major depression, chronic F32.9 Suicidal ideation R45.851 Methamphetamine abuse F15.10
[2024-11-26] MEDS: docusate sodium 100 mg Capsule PO (16:36)
[2024-11-26] MEDS: lurasidone 20 mg Tablet 40 MG PO (17:33)
[2024-11-26 20:03] VITALS: BP 94/57; PULSE 77; RESP 18; TEMP 36.6; O2SAT 99
[2024-11-26] MEDS: hyDROXYzine 25 mg Capsule PO (20:21)
[2024-11-26] MEDS: diphenhydrAMINE 50 mg Capsule PO (20:24)
[2024-11-27] MEDS: calcium carbonate 500 mg Chew Tablet PO ×2 (02:36→22:47)
[2024-11-27 06:00] VITALS: BP 131/83; PULSE 80; RESP 17; TEMP 37.1; O2SAT 96
[2024-11-27] MEDS: nicotine 21 mg Patch 1 PATCH TRANSDERMA (06:58)
[2024-11-27] MEDS: buprenorphine-naloxone 4-1 mg Film 2 EACH SUBLINGUAL ×3 (08:16→20:04)
[2024-11-27] MEDS: metoprolol tartrate 25 mg Tablet PO (08:17)
[2024-11-27] MEDS: ibuprofen 600 mg Tablet PO ×3 (08:17→20:05)
[2024-11-27] MEDS: OLANZapine 5 mg ODT PO (08:17)
[2024-11-27] MEDS: duloxetine 30 mg Capsule 90 MG PO (08:17)
[2024-11-27] MEDS: pregabalin 100 mg Capsule PO (08:17)
[2024-11-27 14:00] VITALS: BP 128/64; PULSE 78; RESP 18; TEMP 36.6; O2SAT 98
--- NOTE | 2024-11-27 14:51 | P.NPUPN_ITS ---
Subjective NPU 2 Subjective: 54-year-old female with a history of met hamphetamine abuse admitted with suicidal ideation and depression. Patient was reporting no suicidal thoughts at this time. She had reported that she was feeling better. She reported some continued depression but appeared less confused and reported feeling more hopeful. She had not had any episodes of aggression here on the unit. She was redirectable and appeared to continue to require some prompting for completion of activities of daily living. She denied any cravings for opiates at this time. Mental Status Exam 2 MSE Comments: Patient is a casually dressed white female who appeared her stated age with improved eye contact awake and alert. She was alert and oriented to person and place and time today. Her mood was described as a little better. Her affect was less restricted in range. Her hygiene appeared improved with poor dentition appreciated. She appeared older than her stated age. Her speech was normal in rate and normal in volume. There was no evidence of any abnormal involuntary motor movements, tics, or tremors appreciated. Her attention span appeared much improved. She endorsed no suicidal ideation today. She denied any homicidal ideation. She denied any auditory or visual hallucinations. She did not appear to be responding internal stimuli. There was no clear evidence of delusional thinking. Her thought process was mostly linear and logical. Her recent and remote memory were both impaired. Her insight is poor. Her judgment is improving. Her impulse control is poor. Vitals/I&O/Wt Last Vital Signs Temp 98.7 F 11/27/24 06:00 Pulse 80 11/27/24 06:00 Resp 17 11/27/24 06:00 BP 131/83 11/27/24 06:00 Pulse Ox 96 11/27/24 06:00 O2 Del Method Room Air 11/27/24 06:00 Data NPU 11/24/24 01:11 11/24/24 01:11 A&P Assessment and plan (1) Major depression, chronic: (2) Suicidal ideation: (3) Methamphetamine abuse: Plan 54-year-old female positive for amphetamine endorsing recent use of methamphetamine currently endorsing depressed mood and suicidal ideation with increase stress of potential incarceration. #1.? Engage patient in individual milieu and group therapy. #2?? Recommend sober living treatment at the highest level of care to which the patient is willing to commit #3??? Continue cymbalta 90mg daily, continue suboxone 04/18 SL tid. #4?? TO-15 minute checks? #5?? Will attempt to gather collateral information, patient under involuntary hold at this time. PDMP PDMP Reviewed: Not Reviewed Involuntary Hold Information 2 Hold Status: Legal Status: 96 Hour Hold Date/Time Hold Expires: 11/28/2024 @ 0145 Attestations NPU 2 Medical Necessity Statement*: Inpatient hospitalization is medically necessary and deemed to be the clinically appropriate intervention at this time. Medications will be adjusted as indicated. The patient's likely length of stay is 1-2 days. Coding Level of Care Code Acute Code for [facility] Fwd Diagnoses Major depression, chronic F32.9 Suicidal ideation R45.851 Methamphetamine abuse F15.10
[2024-11-27] MEDS: lurasidone 20 mg Tablet 40 MG PO (17:43)
[2024-11-27 19:55] VITALS: BP 111/71; PULSE 71; RESP 18; TEMP 37.2; O2SAT 98
[2024-11-27] MEDS: docusate sodium 100 mg Capsule PO (20:05)
[2024-11-27] MEDS: hyDROXYzine 25 mg Capsule PO (20:05)
[2024-11-28 06:00] VITALS: BP 131/76; PULSE 82; RESP 17; TEMP 37.1; O2SAT 92
[2024-11-28] MEDS: buprenorphine-naloxone 4-1 mg Film 2 EACH SUBLINGUAL ×2 (08:25→14:44)
[2024-11-28] MEDS: duloxetine 30 mg Capsule 90 MG PO (08:26)
[2024-11-28] MEDS: ibuprofen 600 mg Tablet PO ×2 (08:26→14:44)
[2024-11-28] MEDS: metoprolol tartrate 25 mg Tablet PO (08:28)
[2024-11-28] MEDS: nicotine 21 mg Patch 1 PATCH TRANSDERMA (08:29)
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
[2024-11-28 13:16] VITALS: BP 114/73; PULSE 84; RESP 16; TEMP 36.8; O2SAT 94
[2024-11-28 14:00] VITALS: BP 114/73; PULSE 84; RESP 16; TEMP 36.8; O2SAT 94
== END 2024-11-28 14:44 | disposition home or self-care (01) | DRG 881 ==
LOC: ER 02:41 → NP 03:58
PROVIDERS: Admitting Provider Psychiatry & Neurology Psychiatry; Emergency Provider Emergency Medicine; PCP Clinical Nurse Specialist Adult Health; Visit Provider Psychiatry & Neurology Psychiatry
DX: F32.9 Major depressive disorder, single episode, unspecified (principal); R45.851 Suicidal ideations; F15.10 Other stimulant abuse, uncomplicated
CPT/HCPCS: 36415; 80053; 80306; 80307; 81001; 85025; 97150; 97166; 99285; J0573; J9999; Q0163

== ENCOUNTER 2024-12-05 16:21 | Inpatient (IN) | payer MEDICAID, SELFPAY ==
[2024-12-05 16:28] VITALS: BP 155/92; PULSE 92; RESP 18; O2SAT 97; BMI 30.8
[2024-12-05 17:04] VITALS: TEMP 36.8
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
[2024-12-05 17:18] LABS: Basophils % 0.4 %; Eosinophils # 0.1 10^3/uL (0.0-0.8); Eosinophils % 1.8 %; Hematocrit 31.3 % (36-47); Lymphocytes # 2.5 10^3/uL (0.8-4.8); Lymphocytes % 32.1 %; Mean Corpuscular HGB Conc 32.3 g/dL (30-55); Mean Corpuscular Hemoglobin 30.2 pg (27-33); Mean Corpuscular Volume 93.7 fl (85-98); Mean Platelet Volume 9.5 fL (7.4-10.4); Monocytes # 0.9 10^3/uL (0.2-0.9); Monocytes % 11.3 %; Neutrophils # 4.26 10^3/uL (1.8-7.7); Nucleated Red Blood Cells % 0 %; Platelet Count 239 10^3/cmm (157-399); Red Blood Count 3.34 10^6/uL (3.85-5.65); Red Cell Distribution Width 14.2 % (12.1-15.1); White Blood Count 7.88 10^3/uL (3.29-11.43)
[2024-12-05 17:35] LABS: Acetaminophen < 5.0 ug/mL (10-30); Alanine Aminotransferase 18 U/L (0-33); Albumin Level 4.1 g/dL (3.5-5.2); Alkaline Phosphatase 95 U/L (35-105); Aspartate Amino Transferase 29 U/L (0-32); Blood Urea Nitrogen 14 mg/dL (6-20); Carbon Dioxide 24 mmol/L (22-29); Chloride 106 mmol/L (98-107); Creatinine Clr Calc Pharmacy 75.6498; Globulin 2.8 g/dL (1.3-4.6); Glomerular Filtration Rate 75.3 mL/min (90-130); Glucose 111 mg/dL (65-115); Osmolality Calculated 295 mOsm/kg (285-295); Salicylate < 0.3 mg/dL (3-10); Sodium 142 mmol/L (136-145); Total Bilirubin 0.2 mg/dL (0.15-1.2); Total Protein 6.9 g/dL (6.6-8.7)
[2024-12-05 18:55] VITALS: BP 102/79; PULSE 98; O2SAT 96
--- NOTE | 2024-12-05 19:32 | PC.NURSE ---
Report called to NPU; all questions and concerns were addressed at time of report.
[2024-12-05 19:43] VITALS: BP 121/46; PULSE 90; RESP 19; TEMP 36.4; O2SAT 97
[2024-12-05 20:21] VITALS: BP 121/46; PULSE 90; RESP 19; TEMP 36.4; O2SAT 97
[2024-12-05] MEDS: hyDROXYzine 25 mg Capsule 50 MG PO (20:33)
[2024-12-05] MEDS: sulfamethoxazole-trimeth DS 160-800 mg Tablet 1 TAB PO (20:33)
[2024-12-05] MEDS: ibuprofen 600 mg Tablet PO (20:33)
[2024-12-05 21:36] LABS: Bilirubin Urine Negative (Negative); Blood Urine Negative (Negative); Glucose Urine UA Negative (Normal); Ketones Urine Negative (Negative); Leukocyte Esterase Urine Negative (Negative); Nitrate Urine Negative (Negative); Protein Urine Negative (Negative); Specific Gravity, Urine 1.021 (1.005-1.030); Urine Appearance Clear (CLEAR); Urine Color Yellow (Yellow)
[2024-12-05 21:41] LABS: Add Urine Microscopic? YES; Bacteria Urine None Seen /hpf; Hyaline Casts Urine 0-4 /lpf; RBC Urine 0-2 /hpf (0-2); Squamous Epithelial Cell Urine 0-5 /hpf (0-5); WBC Urine 0-5 /hpf (0-5)
[2024-12-05 21:59] LABS: Amphetamines Screen Urine Positive (Negative); Barbiturates Screen Urine Negative (Negative); Benzodiazepines Screen Urine Negative (Negative); Cocaine Screen Urine Negative (Negative); Opiate Screen Urine Negative (Negative); PCP Screen Urine Negative (Negative); THC Screen Urine Negative (Negative)
[2024-12-06 06:00] VITALS: BP 103/67; PULSE 84; RESP 17; TEMP 36.6; O2SAT 96
[2024-12-06] MEDS: sulfamethoxazole-trimeth DS 160-800 mg Tablet 1 TAB PO ×2 (08:49→17:55)
[2024-12-06] MEDS: pregabalin 100 mg Capsule PO ×2 (08:49→17:55)
[2024-12-06] MEDS: metoprolol tartrate 25 mg Tablet PO (08:49)
[2024-12-06] MEDS: duloxetine 60 mg Capsule PO (08:49)
[2024-12-06] MEDS: duloxetine 30 mg Capsule PO (08:49)
[2024-12-06] MEDS: acetaminophen 325 mg Tablet 650 MG PO (12:24)
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
[2024-12-06 14:00] VITALS: BP 95/47; PULSE 67; RESP 14; TEMP 36.9; O2SAT 96
[2024-12-06] MEDS: nicotine 4 mg lozenge MUCOUS MEM ×2 (14:26→18:16)
[2024-12-06 17:40] VITALS: BP 115/70
[2024-12-06] MEDS: buprenorphine-naloxone 4-1 mg Film 2 EACH SUBLINGUAL (17:55)
[2024-12-06] MEDS: lurasidone 20 mg Tablet 40 MG PO (17:56)
[2024-12-06] MEDS: polyethylene glycol 3350 Pkt 17 gm PO (18:00)
[2024-12-06 20:15] VITALS: BP 180/96; PULSE 66; RESP 16; TEMP 36.6; O2SAT 94
[2024-12-07 06:00] VITALS: BP 94/57; PULSE 68; RESP 16; TEMP 37.1; O2SAT 95
[2024-12-07] MEDS: duloxetine 60 mg Capsule PO (08:10)
[2024-12-07] MEDS: metoprolol tartrate 25 mg Tablet PO (08:10)
[2024-12-07] MEDS: pregabalin 100 mg Capsule PO ×2 (08:10→17:41)
[2024-12-07] MEDS: sulfamethoxazole-trimeth DS 160-800 mg Tablet 1 TAB PO ×2 (08:10→17:41)
[2024-12-07] MEDS: duloxetine 30 mg Capsule PO (08:10)
[2024-12-07] MEDS: buprenorphine-naloxone 4-1 mg Film 2 EACH SUBLINGUAL ×2 (08:11→17:41)
[2024-12-07] MEDS: nicotine 4 mg lozenge MUCOUS MEM ×2 (10:45→14:38)
[2024-12-07] MEDS: ibuprofen 600 mg Tablet PO (11:14)
[2024-12-07 14:00] VITALS: BP 100/60; PULSE 61; RESP 15; TEMP 36.4; O2SAT 93
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
[2024-12-07] MEDS: lurasidone 20 mg Tablet 40 MG PO (17:41)
[2024-12-07 19:58] VITALS: BP 128/62; PULSE 67; RESP 15; TEMP 36.6; O2SAT 99
[2024-12-08 06:00] VITALS: BP 117/67; PULSE 79; RESP 16; TEMP 37.1; O2SAT 96
[2024-12-08] MEDS: nicotine 4 mg lozenge MUCOUS MEM ×2 (06:25→12:05)
[2024-12-08] MEDS: duloxetine 60 mg Capsule PO (07:58)
[2024-12-08] MEDS: buprenorphine-naloxone 4-1 mg Film 2 EACH SUBLINGUAL (07:58)
[2024-12-08] MEDS: sulfamethoxazole-trimeth DS 160-800 mg Tablet 1 TAB PO (07:58)
[2024-12-08] MEDS: duloxetine 30 mg Capsule PO (07:59)
[2024-12-08] MEDS: metoprolol tartrate 25 mg Tablet PO (07:59)
[2024-12-08] MEDS: pregabalin 100 mg Capsule PO (07:59)
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
[2024-12-08 12:45] VITALS: BP 117/67; PULSE 79; RESP 16; TEMP 37.1; O2SAT 96
== END 2024-12-08 13:34 | disposition home or self-care (01) | DRG 881 ==
LOC: ER 18:11 → NP 18:32
PROVIDERS: Emergency Medicine; Admitting Provider Psychiatry & Neurology Psychiatry; Emergency Provider Family Medicine; PCP Clinical Nurse Specialist Adult Health; Visit Provider Psychiatry & Neurology Psychiatry
DX: F32.9 Major depressive disorder, single episode, unspecified (principal); R45.851 Suicidal ideations; F15.10 Other stimulant abuse, uncomplicated; E66.9 Obesity, unspecified; Z68.30 Body mass index [BMI] 30.0-30.9, adult
CPT/HCPCS: 36415; 80053; 80306; 80307; 81001; 85025; 97150; 97165; 99285; J0573; J9999

== ENCOUNTER 2024-12-23 16:04 | Inpatient (IN) | payer MEDICAID, SELFPAY ==
--- NOTE | 2024-12-23 16:08 | ED.C_ITS ---
HPI - Psych 2 General: Chief Complaint: Psychiatric Symptoms Stated Complaint: 96 Time Seen by Provider: 12/23/24 16:05 Source: patient and police Limitations: no limitations History of Present Illness: 54-year-old female has a history of poly substance abuse along with depression patient had taken Suboxone and kratom roughly 8 to 10 hours ago and attempt to kill herself. Patient was placed on a 96-hour hold and brought in by police. She states she is suicidal did take those pills in attempt to kill herself. Associated symptoms: Reports depression Related Data Home Medications ?Medication ?Instructions ?Recorded ?Confirmed buprenorphine HCl 8 mg sublingual 8 mg sublingual TID PRN ADDICTION 11/24/24 12/23/24 tablet diphenhydramine HCl 25 mg capsule 25 mg PO TID PRN hiv es 12/23/24 12/23/24 (Benadryl) hydroxyzine pamoate 25 mg capsule 25 mg PO BEDTIME 05/1112/23/24 ibuprofen 800 mg tablet 800 mg PO TID 12/23/2412/23 Previous Rx's ?Medication ?Instructions ?Recorded duloxetine 30 mg capsule,delayed 30 mg PO DAILY #30 ca ps 12/08/24 release (Cymbalta) duloxetine 60 mg capsule,delayed 60 mg PO DAILY 30 day s #30 caps 12/08/24 release lurasidone 40 mg tablet 40 mg PO 1900 30 days #30 ta bs 12/08/24 metoprolol tartrate 25 mg tablet 25 mg PO DAILY 30 day s #30 tabs 12/08/24 polyethylene glycol 3350 17 4 g PO DAILY PRN constipat ion #119 12/08/24 gram/dose oral powder (Miralax) grams pregabalin 100 mg capsule 100 mg PO BID 30 days #60 ca ps 12/08/24 Allergies Allergy/AdvReac Type Severity Reaction Status Date / Time citalopram (From Celexa) Allergy cant pee Verified 11/24/24 00:49 codeine Allergy stomach Verified 11/24/24 00:49 upset morphine Allergy stomach Verified 11/24/24 00:49 upset Review of Systems 2 Const: Denies: fever(s), chills, body aches or change in appetite ENMT: Denies: throat pain or dental pain Card: Denies: chest pain Resp: Denies: dyspnea GI: Denies: abdominal pain, nausea, vomiting or diarrhea Musc: Denies: neck pain or back pain Skin/Breast: Denies: rash Neuro: Denies: headache(s) Psych: Reports: depression PFSH ED 2 PFSH: Medical History BRAEDEN (generalized anxiety disorder) Endocarditis Asthma COPD (chronic obstructive pulmonary disease) Dyslipidemia Hep C w/ coma, chronic Anxiety Chronic pain Surgical History History of ankle surgery History of abdominal surgery Social History Smoking and tobacco/nicotine status: current every day tobacco/nicotine user Alcohol intake: former Substance/Drug Use: former Physical Exam 2 Const: COMMON NORMALS: no acute distress, patient oriented x3 and healthy appearing HENMT: COMMON NORMALS: normocephalic and atraumatic HEAD & SCALP: n ormocephalic and atraumatic Neck/C-Spine: COMMON NORMALS: full ROM and supple Chest: COMMONS NORMALS: normal inspection of the chest Resp: COMMON NORMALS: normal respiratory effort Cardio: COMMON NORMALS: regular rate, regular rhythm and No murmurs present (Cardio) RATE: regular rate RHYTHM: regular rhythm GI: COMMON NORMALS: Normal to inspection, nondistended, normoactive bowel sounds present, Soft to palpation, non-tender and no masses PALPATION: Yes Soft to palpation Extremity: COMMON NORMALS: normal to inspection and full ROM Neuro: COMMON NORMALS: patient oriented x3, moves all extremities and no focal motor deficits Psych: COMMON NORMALS: mental status grossly normal, Normal thought process present and cooperative THOUGHT PROCESS: Normal thought process present T HOUGHT CONTENT: Yes Suicidality present Skin: COMMON NORMALS: no rashes or lesions noted and no wounds GENERAL SKIN EXAM: no rashes or lesions noted Course 2 Vital Signs: Vital signs: Vital Signs Temperature 98.1 F 12/23/24 16:11 Pulse Rate 95 12/23/24 16:11 Respiratory Rate 18 12/23/24 16:11 Blood Pressure 131/86 12/23/24 16:11 Pulse Oximetry 96 12/23/24 16:11 Oxygen Delivery Me thod Room Air 12/23/24 16:11 MDM - Psych Medical Decision Making Patient presents here with suicidal ideations she is medically cleared spoke to psychiatrist will admit on 96-hour hold Medical Records I reviewed the patient's medical records. Lab Data I reviewed the patient's lab results. 12/23/24 16:17 12/23/24 16:17 Laboratory Results WBC 4.47 10^3/uL (3.29-11.43) 12/23/24 16:17 RBC 3.38 10^6/uL (3.85-5.65) L 12/23/24 16:17 Hgb 10.30 g/dL (11.27-16.99) L 12/23/24 16:17 Hct 32.9 % (36-47) L 12/23/24 16:17 MCV 97.3 fl (85-98) 12/23/24 16:17 MCH 30.5 pg (27-33) 12/23/24 16:17 MCHC 31.3 g/dL (30-55) 12/23/24 16:17 RDW 13.9 % (12.1-15.1) 12/23/24 16:17 Plt Count 186 10^3/cmm (157-399) 12/23/24 16:17 MPV 11.2 fL (7.4-10.4) H 12/23/24 16:17 Neut % (Auto) 40.6 % 12/23/24 16:17 Lymph % (Auto) 45.4 % 12/23/24 16:17 Dawson % (Auto) 9.8 % 12/23/24 16:17 Eos % (Auto) 3.1 % 12/23/24 16:17 Baso % (Auto) 1.1 % 12/23/24 16:17 Neut # (Auto) 1.81 10^3/uL (1.8-7.7) 12/23/24 16:17 Lymph # (Auto) 2.0 10^3/uL (0.8-4.8) 12/23/24 16:17 Dawson # (Auto) 0.4 10^3/uL (0.2-0.9) 12/23/24 16:17 Eos # (Auto) 0.1 10^3/uL (0.0-0.8) 12/23/24 16:17 Baso # (Auto) 0.1 10^3/uL (0.0-0.1) 12/23/24 16:17 Nucleated RBC % (auto) 0 % 12/23/24 16:17 Nucleated RBCs # 0.0 /100WBC 12/23/24 16:17 No radiology studies performed this visit EKG Data EKG 1: I personally reviewed and interpreted this EKG as follows: EKG interpretation date: 12/23/24 EKG interpretation time: 16:31 Interpretation: nsr hr [address] elevation qrs 94 qtc 420 Discharge Plan Discharge Patient Disposition: Admitted As Inpatient Clinical Impression: Suicidal ideation Condition: Stable Prescriptions: No Action polyethylene glycol 3350 [Miralax] 17 gram/dose powder 4 g PO DAILY PRN (Reason: constipation) Qty: 119 1RF metoprolol tartrate 25 mg tablet 25 mg PO DAILY 30 Days Qty: 30 1RF duloxetine [Cymbalta] 30 mg capsule,delayed release(DR/EC) 30 mg PO DAILY Qty: 30 1RF Rx Instructions: along with 60mg to=90mg total. duloxetine 60 mg capsule,delayed release(DR/EC) 60 mg PO DAILY 30 Days Qty: 30 1RF Rx Instructions: along with 30mg to=90mg total. pregabalin 100 mg capsule 100 mg PO BID 30 Days Qty: 60 1RF lurasidone 40 mg tablet 40 mg PO 1900 30 Days Qty: 30 1RF Rx Instructions: take with food. ibuprofen 800 mg tablet 800 mg PO TID diphenhydramine HCl [Benadryl] 25 mg Capsule 25 mg PO TID PRN (Reason: hives) hydroxyzine pamoate 25 mg capsule 25 mg PO BEDTIME buprenorphine HCl 8 mg Tablet, Sublingual 8 mg SUBLINGUAL TID PRN (Reason: ADDICTION) Referrals: Lokesh Umana PRODUCE SPECIALIST [Primary Care Provider] - Print Language: Montserratian Coding Level of Care Code ED Knowledge Engineer for Shaw Hawkins
[2024-12-23 16:11] VITALS: BP 131/86; PULSE 95; RESP 18; TEMP 36.7; O2SAT 96
--- NOTE | 2024-12-23 16:31 | ECG_ITS ---
[facility] Test Date: 2024-12-23 Pat Name: Katie Zuniga Department: Room: Gender: Female Snipper: : 1970 Requested By: Kendall Ross Order Number: [id number] Maikel MD: Angella Farah M.D. Measurements Intervals [place]le Rate: 78 P: -8 ME: 151 QRS: 72 QRSD: 94 T: 53 QT: 387 QTc: 443 Interpretive Statements SINUS RHYTHM LOW QRS VOLTAGE IN PRECORDIAL LEADS [QRS DEFLECTION < 1.0 mV IN CHEST LEADS] Compared to ECG 09/10/2024 20:34:07 Low QRS voltage now present Sinus tachycardia no longer present Short ME interval no longer present Electronically Signed On 12-23-2024 18:46:47 CDT by Angella Farah M.D. [id number]
[2024-12-23 16:32] LABS: Basophils # 0.1 10^3/uL (0.0-0.1); Basophils % 1.1 %; Eosinophils # 0.1 10^3/uL (0.0-0.8); Eosinophils % 3.1 %; Hematocrit 32.9 % (36-47); Lymphocytes % 45.4 %; Mean Corpuscular HGB Conc 31.3 g/dL (30-55); Mean Corpuscular Hemoglobin 30.5 pg (27-33); Mean Corpuscular Volume 97.3 fl (85-98); Mean Platelet Volume 11.2 fL (7.4-10.4); Monocytes # 0.4 10^3/uL (0.2-0.9); Monocytes % 9.8 %; Neutrophils # 1.81 10^3/uL (1.8-7.7); Neutrophils % 40.6 %; Nucleated Red Blood Cells % 0 %; Platelet Count 186 10^3/cmm (157-399); Red Blood Count 3.38 10^6/uL (3.85-5.65); Red Cell Distribution Width 13.9 % (12.1-15.1); White Blood Count 4.47 10^3/uL (3.29-11.43)
[2024-12-23 17:18] LABS: Alanine Aminotransferase 22 U/L (0-33); Albumin Level 4.4 g/dL (3.5-5.2); Alkaline Phosphatase 85 U/L (35-105); Anion Gap 16.5 (5-19); Aspartate Amino Transferase 35 U/L (0-32); Blood Urea Nitrogen 24 mg/dL (6-20); Calcium 9.1 mg/dL (8.5-10.5); Carbon Dioxide 25 mmol/L (22-29); Chloride 104 mmol/L (98-107); Glomerular Filtration Rate 75.3 mL/min (90-130); Glucose 90 mg/dL (65-115); Osmolality Calculated 296 mOsm/kg (285-295); Potassium 4.5 mmol/L (3.5-5.1); Sodium 141 mmol/L (136-145); Total Bilirubin 0.3 mg/dL (0.15-1.2); Total Protein 7.4 g/dL (6.6-8.7)
[2024-12-23 17:20] LABS: Acetaminophen < 5.0 ug/mL (10-30); Alcohol Level < 10 mg/dL (0-10); Salicylate < 0.3 mg/dL (3-10)
[2024-12-23 17:24] LABS: Amphetamines Screen Urine Positive (Negative); Barbiturates Screen Urine Negative (Negative); Benzodiazepines Screen Urine Positive (Negative); Cocaine Screen Urine Negative (Negative); Opiate Screen Urine Negative (Negative); PCP Screen Urine Negative (Negative); THC Screen Urine Negative (Negative)
--- NOTE | 2024-12-23 17:29 | PC.NURSE ---
96 hr rights reviewed with patient @1640 with assistance of [facility] security control assessor Bra[place]. All education reviewed with pt at this time. No verbalized questions or concerns for HS. Pt copy was left @bedside with pt. Soda was provided by HS. No further needs at this time.
[2024-12-23 17:34] VITALS: BP 103/64; PULSE 103; O2SAT 96
[2024-12-23] MEDS: ibuprofen 800 mg tablet PO (17:36)
[2024-12-23 17:44] VITALS: BP 120/82; PULSE 82; RESP 18; TEMP 36.6; O2SAT 98
[2024-12-23 20:11] VITALS: BP 103/66; PULSE 73; RESP 18; TEMP 36.4; O2SAT 97
[2024-12-23] MEDS: trazodone 50 mg Tablet PO (20:48)
[2024-12-23] MEDS: acetaminophen 325 mg Tablet 650 MG PO (20:48)
[2024-12-23] MEDS: hyDROXYzine 25 mg Capsule 50 MG PO (20:49)
[2024-12-23 22:24] VITALS: PULSE 78
[2024-12-24 06:00] VITALS: PULSE 70; RESP 18; TEMP 36.4; O2SAT 92
[2024-12-24] MEDS: duloxetine 60 mg Capsule PO (08:38)
[2024-12-24] MEDS: metoprolol tartrate 25 mg Tablet PO (08:38)
[2024-12-24] MEDS: ibuprofen 800 mg tablet PO ×3 (08:38→19:56)
[2024-12-24] MEDS: nicotine 4 mg lozenge MUCOUS MEM ×2 (08:38→18:08)
[2024-12-24] MEDS: pregabalin 100 mg Capsule PO ×2 (08:38→18:08)
[2024-12-24] MEDS: duloxetine 30 mg Capsule PO (08:38)
[2024-12-24 14:00] VITALS: BP 91/59; PULSE 55; RESP 18; TEMP 36.3; O2SAT 100
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
[2024-12-24] MEDS: lurasidone 80 mg Tablet 40 MG PO (18:08)
[2024-12-24 19:53] VITALS: BP 100/50; PULSE 55; RESP 18; TEMP 37.1; O2SAT 98
[2024-12-24] MEDS: trazodone 50 mg Tablet PO (19:56)
[2024-12-24] MEDS: hyDROXYzine 25 mg Capsule 50 MG PO (19:57)
[2024-12-24] MEDS: hyDROXYzine 25 mg Capsule PO (20:38)
[2024-12-25 06:00] VITALS: BP 100/65; PULSE 60; RESP 16; O2SAT 94
[2024-12-25] MEDS: duloxetine 60 mg Capsule PO (09:17)
[2024-12-25] MEDS: duloxetine 30 mg Capsule PO (09:17)
[2024-12-25] MEDS: metoprolol tartrate 25 mg Tablet PO (09:18)
[2024-12-25] MEDS: ibuprofen 800 mg tablet PO ×3 (09:18→21:39)
[2024-12-25] MEDS: pregabalin 100 mg Capsule PO ×2 (09:18→17:59)
[2024-12-25 09:19] VITALS: BP 102/67; PULSE 60; RESP 17; TEMP 36.7; O2SAT 98
--- NOTE | 2024-12-25 09:21 | PC.NURSE ---
Patient c/o pain in BLE 01/24. She states this is a normal, chronic pain for her and Ibuprofen 600 mg 1 tablet TID at home manages her pain well.
[2024-12-25 14:00] VITALS: BP 110/70; PULSE 63; RESP 18; TEMP 36.6; O2SAT 97
--- NOTE | 2024-12-25 15:11 | P.NPUPN_ITS ---
Subjective NPU 2 Subjective: 54-year-old female with a history of met hamphetamine abuse admitted with suicidal ideation and depression after overdose on suboxone and Kratom. The patient had reported that she was feeling depressed. She continued to report that she had many things to do before her hearing on Sunday where she states that she would likely be going to senior living for up to 8 years. Patient reported no side effects from her previous medications. She had reported feeling at times hopeless. She had stated that she was homeless and had continued to struggle with methamphetamine abuse. She had denied any psychotic symptoms. She had reported that she had taken 10 Suboxone 8 mg films 2 days ago with the intent to overdose. Mental Status Exam 2 MSE Comments: Patient is a casually dressed white female who appeared older than her stated age with fleeting eye contact who was more alert today. She was alert and oriented to person and place and time. Her mood was described as okay. . Her affect was odd and subdued. Her hygiene appeared poor. Her speech was normal in volume and diminshed in rate. There was no evidence of any abnormal involuntary motor movements, tics, or tremors appreciated. Her attention span appeared impaired. She endorsed suicidal ideation and acknowledged overdosing on medication and Kratom. She denied any homicidal ideation. She denied any auditory visual hallucinations .She did not appear to be responding internal stimuli. There was no clear evidence of delusional thinking. Her thought process was mostly linear and logical. Her recent and remote memory were both impaired. Her insight is poor. Her judgment is poor. Her impulse control is poor. Vitals/I&O/Wt Last Vital Signs Temp 98.1 F 12/25/24 09:19 Pulse 60 12/25/24 09:19 Resp 17 12/25/24 09:19 BP 102/67 12/25/24 09:19 Pulse Ox 98 12/25/24 09:19 O2 Del Method Room Air 12/24/24 06:00 Data NPU 12/23/24 16:17 12/23/24 16:17 A&P Assessment and plan (1) Major depression, chronic: (2) Suicidal ideation: (3) Methamphetamine abuse: (4) Suicide by drug overdose: Plan 54-year-old female who presents again 14 days since her last hospitalization where she was positive for amphetamines, returns this time overdosing on Suboxone and OTC Kratom with suicidal intent now homeless and continuing to present with impending incarceration. 1. Continue outpatient medication regimen other than Suboxone due to overdose on this. 2. Encourage individual, group and milieu therapy. 3. Recommend sober living treatment after discharge at the highest level of care to which the patient is willing to commi.t 4. Continue every 15 minute checks for safety. Restart outpatient medications. 5. Patient wishing to leave as soon as possible but currently homeless. PDMP PDMP Reviewed: Not Reviewed Involuntary Hold Information 2 Hold Status: Legal Status: 96 Hour Hold Date/Time Hold Expires: 12/29/2024 @ 1620 Attestations NPU 2 Medical Necessity Statement*: Inpatient hospitalization is medically necessary and deemed to be the clinically appropriate intervention at this time. Medications will be adjusted as indicated. The patient's likely length of stay is 3-5 days. Coding Level of Care Code Acute Code for g Fwd Diagnoses Major depression, chronic F32.9 Suicidal ideation R45.851 Methamphetamine abuse F15.10 Suicide by drug overdose T50.901G
[2024-12-25] MEDS: lurasidone 80 mg Tablet 40 MG PO (17:59)
[2024-12-25 19:53] VITALS: BP 118/68; PULSE 67; RESP 16; TEMP 36.8; O2SAT 95
[2024-12-25] MEDS: hyDROXYzine 25 mg Capsule PO (21:40)
--- NOTE | 2024-12-25 22:00 | PC.NURSE ---
While pulling bedtime medications there was a problem with the [employer]. It would only allow medications to be pulled one at a time; each time a medication was pulled the Pixus would KICK ME OUT requiring me to log back in for each individual medication. In addition, the pixus was not acknowledging that the medications were pulled! This made it APPEAR that the medications were NOT PULLED even though they were indeed pulled and given. The medications in question (ALL PO) for this patient are as follows: IBUPROFIN 800MG AND VISTARIL 25MG. This may ADVERSELY AFFECT the NARCOTIC COUNT as it would not allow me to put in the count. There were three displays on the Pixus: #1 CRITICAL OVERRIDE . #2 PATIENT DATA MAY NOT BE CURRENT : PATIENT INTERFACE PROBLEM FOR 9M . #3 PATIENT ORDERS MAY NOT BE CURRENT : ORDER INTERFACE PROBLEM FOR 20M . Susie ISABEL the tank house operator was notified and advised that I check with / notify IT in case there was an update that we were unaware of. I checked with IT and they said they were not updating at this time. They suggested that I check with pharmacy in the morning. That is what I will do.
[2024-12-26 06:00] VITALS: BP 112/52; PULSE 89; RESP 17; TEMP 37.1; O2SAT 98
--- NOTE | 2024-12-26 09:16 | PC.NURSE ---
Pt states that she slept alright last night. She denies anxiety and depression. No SI/HI. Denies hallucinations. States that her last bm was yesterday. When I was doing pt physical assessment it was noted that she was wearing a bra that has wire in it. I informed pt that we were going to have to have her remove the bra and we would attempt to find her a sports bra that was acceptable to have on the unit. Pt agreed to this. SANDEEP Poe assisted pt to get this done yvonne after discovering.
[2024-12-26] MEDS: duloxetine 30 mg Capsule PO (09:29)
[2024-12-26] MEDS: hyDROXYzine 25 mg Capsule 50 MG PO (09:29)
[2024-12-26] MEDS: metoprolol tartrate 25 mg Tablet PO (09:29)
[2024-12-26] MEDS: pregabalin 100 mg Capsule PO ×2 (09:30→17:18)
[2024-12-26] MEDS: duloxetine 60 mg Capsule PO (09:30)
[2024-12-26] MEDS: ibuprofen 800 mg tablet PO ×2 (09:31→15:54)
[2024-12-26] MEDS: nicotine 4 mg lozenge MUCOUS MEM ×2 (13:54→15:25)
[2024-12-26 14:00] VITALS: BP 122/70; PULSE 71; RESP 17; TEMP 36.8; O2SAT 98
--- NOTE | 2024-12-26 15:49 | P.NPUPN_ITS ---
Subjective NPU 2 Subjective: 54-year-old female with a history of met hamphetamine abuse admitted with suicidal ideation and depression after overdose on suboxone and Kratom. The patient denied any suicidal thoughts at this time. She had reported that she would like to leave and go home. She stated that she was planning on going to her hearing on Sunday despite there being concerned that she may go to long term. She had reported no side effects from her medications. She had reported some continued pain issues. She reported no cravings for opiates currently. The patient had been less isolative on the milieu. She was able to attend groups. She had denied any feelings of hopelessness or worthlessness. Mental Status Exam 2 MSE Comments: Patient is a casually dressed white female who appeared older than her stated age with fair eye contact who was more alert today. She was alert and oriented to person and place and time. Her mood was described as allright Her affect was slightly restricted Her hygiene appeared poor. Her speech was normal in rate, rhythm and volume. There was no evidence of any abnormal involuntary motor movements, tics, or tremors appreciated. Her attention span appeared improved. She denied suicidal ideation or homicidal ideation currently. She denied any auditory visual hallucinations .She did not appear to be responding internal stimuli. There was no clear evidence of delusional thinking. Her thought process was mostly linear and logical. Her recent and remote memory were both impaired. Her insight is poor. Her judgment is limited Her impulse control is limited. Vitals/I&O/Wt Last Vital Signs Temp 98.8 F 12/26/24 06:00 Pulse 89 12/26/24 06:00 Resp 17 12/26/24 06:00 BP 112/52 12/26/24 06:00 Pulse Ox 98 12/26/24 06:00 O2 Del Method Room Air 12/26/24 06:00 Data NPU 12/23/24 16:17 12/23/24 16:17 A&P Assessment and plan (1) Major depression, chronic: (2) Suicidal ideation: (3) Methamphetamine abuse: (4) Suicide by drug overdose: Plan 54-year-old female who presents again 14 days since her last hospitalization where she was positive for amphetamines, returns this time overdosing on Suboxone and OTC Kratom with suicidal intent now homeless and continuing to present with impending incarceration. 1. Continue outpatient medication regimen other than Suboxone due to overdose on this. 2. Encourage individual, group and milieu therapy. 3. Recommend sober living treatment after discharge at the highest level of care to which the patient is willing to commi.t 4. Continue every 15 minute checks for safety. Restart outpatient medications. 5. Patient may be discharged in 1-2 days, seeking nursing home with patient eager to attend hearing on 12/29/24. PDMP PDMP Reviewed: Last Reviewed 12/26/24 16:16 EDT by Alton Disla MD Involuntary Hold Information 2 Hold Status: Legal Status: 96 Hour Hold Date/Time Hold Expires: 12/29/2024 @ 1620 Attestations NPU 2 Medical Necessity Statement*: Inpatient hospitalization is medically necessary and deemed to be the clinically appropriate intervention at this time. Medications will be adjusted as indicated. The patient's likely length of stay is 1-2 days. Coding Level of Care Code Acute Code for [facility] Fwd Diagnoses Major depression, chronic F32.9 Suicidal ideation R45.851 Methamphetamine abuse F15.10 Suicide by drug overdose T50.904K
[2024-12-26] MEDS: lurasidone 80 mg Tablet 40 MG PO (17:18)
[2024-12-26] MEDS: buprenorphine-naloxone 4-1 mg Film 2 EACH SUBLINGUAL (17:18)
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
[2024-12-26 18:41] VITALS: BP 122/70; PULSE 72; RESP 16; TEMP 36.8; O2SAT 98
== END 2024-12-26 20:00 | disposition home or self-care (01) | DRG 918 ==
LOC: ER 17:30 → NP 17:39
PROVIDERS: Admitting Provider Psychiatry & Neurology Psychiatry; Emergency Provider Emergency Medicine; PCP Clinical Nurse Specialist Adult Health; Visit Provider Psychiatry & Neurology Psychiatry
DX: T50.992A Poisoning by other drugs, medicaments and biological substances, intentional self-harm, initial encounter (principal); Z59.00 Homelessness unspecified; R45.851 Suicidal ideations; Y92.9 Unspecified place or not applicable; F32.9 Major depressive disorder, single episode, unspecified; F15.10 Other stimulant abuse, uncomplicated
CPT/HCPCS: 36415; 80053; 80306; 80307; 85025; 93005; 97165; 99285; J0573; J9999

== ENCOUNTER 2025-01-18 19:56 | Emergency (ER) | payer SELFPAY ==
[2025-01-18 20:02] VITALS: BP 152/83; PULSE 75; RESP 18; TEMP 36.4; O2SAT 100; BMI 34.0
--- NOTE | 2025-01-18 20:22 | XRR_ITS ---
PROCEDURE INFORMATION: Exam: XR Chest Exam date and time: 01/18/2025 8:28 PM Age: 54 years old Clinical indication: Screening exam; Other screening; Additional info: Medical clearance TECHNIQUE: Imaging protocol: Radiologic exam of the chest. Views: 1 view. COMPARISON: CR XR chest 1V portable [id number] 09/10/2024 8:48 PM FINDINGS: Lungs: Unremarkable. No consolidation. Pleural spaces: Unremarkable. No pleural effusion. No pneumothorax. Heart/Mediastinum: Unremarkable. No cardiomegaly. Bones/joints: Unremarkable. XR/XR chest 1V portable [id number] IMPRESSION: No acute findings.
[2025-01-18 20:27] LABS: Basophils % 0.6 %; Eosinophils # 0.1 10^3/uL (0.0-0.8); Eosinophils % 2.5 %; Lymphocytes # 1.8 10^3/uL (0.8-4.8); Lymphocytes % 35.9 %; Mean Corpuscular HGB Conc 31.5 g/dL (30-55); Mean Corpuscular Hemoglobin 30.6 pg (27-33); Mean Corpuscular Volume 97.1 fl (85-98); Mean Platelet Volume 11.8 fL (7.4-10.4); Monocytes # 0.6 10^3/uL (0.2-0.9); Monocytes % 11.6 %; Neutrophils # 2.51 10^3/uL (1.8-7.7); Neutrophils % 49.2 %; Nucleated Red Blood Cells % 0 %; Platelet Count 206 10^3/cmm (157-399); Red Cell Distribution Width 13.7 % (12.1-15.1)
--- NOTE | 2025-01-18 20:29 | ECG_ITS ---
[facility] Pat Name: Katie Zuniga Department: Room: Gender: Female Marketing Communications Leader: : 1970 Requested By: Kulwant Medina Order Number: [id number] Maikel MD: Aris Jamison M.D. Measurements Intervals [place] Rate: 71 P: -9 NM: 160 QRS: 52 QRSD: 102 T: 36 QT: 420 QTc: 459 Interpretive Statements SINUS RHYTHM Compared to ECG 12/23/2024 16:31:12 No significant changes Electronically Signed On 01-19-2025 09:16:37 CDT by Aris Jamison M.D. [email or web address]
[2025-01-18 20:32] LABS: Bilirubin Urine Negative (Negative); Blood Urine Negative (Negative); Glucose Urine UA Negative (Normal); Ketones Urine Negative (Negative); Leukocyte Esterase Urine Negative (Negative); Nitrate Urine Negative (Negative); Protein Urine Negative (Negative); Specific Gravity, Urine 1.019 (1.005-1.030); Urine Appearance Clear (CLEAR); Urine Color Yellow (Yellow)
[2025-01-18 20:37] LABS: Add Urine Microscopic? YES; Bacteria Urine None Seen /hpf; RBC Urine 0-2 /hpf (0-2); Squamous Epithelial Cell Urine 0-5 /hpf (0-5); WBC Urine 0-5 /hpf (0-5)
[2025-01-18 20:39] LABS: Amphetamines Screen Urine Positive (Negative); Barbiturates Screen Urine Negative (Negative); Benzodiazepines Screen Urine Negative (Negative); Cocaine Screen Urine Negative (Negative); Opiate Screen Urine Negative (Negative); PCP Screen Urine Negative (Negative); THC Screen Urine Negative (Negative)
[2025-01-18 21:09] LABS: Influenza A NEGATIVE (Negative); Influenza B NEGATIVE (Negative); Respiratory Syncytial Virus Ce NEGATIVE (Negative); SARS-CoV-2 PCR NEGATIVE (Negative)
[2025-01-18 21:15] LABS: Alanine Aminotransferase 11 U/L (0-33); Alkaline Phosphatase 96 U/L (35-105); Aspartate Amino Transferase 17 U/L (0-32); Blood Urea Nitrogen 16 mg/dL (6-20); Calcium 8.7 mg/dL (8.5-10.5); Carbon Dioxide 28 mmol/L (22-29); Chloride 106 mmol/L (98-107); Creatinine Clr Calc Pharmacy 91.0346; Globulin 2.6 g/dL (1.3-4.6); Glomerular Filtration Rate 87.9 mL/min (90-130); Glucose 87 mg/dL (65-115); Osmolality Calculated 297 mOsm/kg (285-295); Sodium 143 mmol/L (136-145); Total Bilirubin 0.2 mg/dL (0.15-1.2); Total Protein 6.6 g/dL (6.6-8.7)
[2025-01-18 21:16] LABS: Acetaminophen < 5.0 ug/mL (10-30); Alcohol Level < 10 mg/dL (0-10); Salicylate < 0.3 mg/dL (3-10)
[2025-01-18 21:17] LABS: Anion Gap 13.5 (5-19); Potassium 4.5 mmol/L (3.5-5.1)
--- NOTE | 2025-01-18 21:18 | PC.NURSE ---
96 Hour Hold Patient educated on being placed under a 96 hour hold. Rights read to patient with security present; upon asking if she understood what a 96 hour hold was, patient said yes. Patient verbalized no further questions regarding hold.
--- NOTE | 2025-01-18 21:30 | W.ED.PSYCHS ---
Documented by User: Kulwant Medina DO 01/18/25 21:34 HPI - Psych General: Chief Complaint: Psychiatric Symptoms Stated Complaint: SI Time Seen by Provider: 01/18/25 20:00 History of Present Illness: 54-year-old female brought in by PD. PD filled out affidavits stating she made suicidal comments. Patient was being arrested for shoplifting. She was going to shelter she told the intermission coordinator that she was suicidal and she went to kill herself. Patient has frequent visits for behavioral health issues. She does not state to me suicidal thoughts at this time. Related Data Home Medications ?Medication ?Instructions ?Recorded ?Confirmed ibuprofen 800 mg tablet 800 mg PO TID 12/23/24 01/14/25 Previous Rx's ?Medication ?Instructions ?Recorded polyethylene glycol 3350 17 4 g PO DAILY PRN constipation #119 12/08/24 gram/dose oral powder (Miralax) grams buprenorphine HCl 8 mg sublingual 8 mg sublingual BID 30 days #60 12/26/24 tablet tabs duloxetine 30 mg capsule,delayed 30 mg PO DAILY #30 caps 12/26/24 release (Cymbalta) duloxetine 60 mg capsule,delayed 60 mg PO DAILY 30 days #30 caps 12/26/24 release hydroxyzine pamoate 25 mg capsule 25 mg PO BEDTIME 30 days #30 caps 12/26/24 lurasidone 40 mg tablet 40 mg PO 1900 30 days #30 tabs 12/26/24 metoprolol tartrate 25 mg tablet 25 mg PO DAILY 30 days #30 tabs 12/26/24 pregabalin 100 mg capsule 100 mg PO BID 30 days #60 caps 12/26/24 cetirizine 10 mg tablet (All Day 10 mg PO DAILY PRN allergy 01/14/25 Allergy (cetirizine)) symptoms #30 tabs fluticasone propionate 50 1 spray intranasal DAILY #16 grams 01/14/25 mcg/actuation nasal spray,suspension (Children's Flonase Allergy Relief) Allergies Allergy/AdvReac Type Severity Reaction Status Date / Time citalopram (From Celexa) Allergy cant pee Verified 01/14/25 18:07 codeine Allergy stomach Verified 01/14/25 18:07 upset morphine Allergy stomach Verified 01/14/25 18:07 upset Review of Systems Const: Denies: fever(s) or chills Card: Denies: chest pain or palpitations Resp: Denies: dyspnea Psych: Reports: other (Please see HPI) PFSH ED PFSH: Medical History BRAEDEN (generalized anxiety disorder) Endocarditis Asthma COPD (chronic obstructive pulmonary disease) Dyslipidemia Hep C w/ coma, chronic Anxiety Chronic pain Surgical History History of ankle surgery History of abdominal surgery Social History Smoking and tobacco/nicotine status: current every day tobacco/nicotine user Alcohol intake: former Substance/Drug Use: former Physical Exam Const: COMMON NORMALS: patient oriented x3 GENERAL APPEARANCE: disheveled HENMT: TEETH & GINGIVA: Yes poor dentition Eye: COMMON NORMALS: Equal, round and reactive pupils present and EOMs intact bilaterally PUPIL: Yes Equal, round and reactive pupils present Resp: COMMON NORMALS: normal respiratory effort and clear to auscultation bilaterally AUSCULTATION: clear to auscultation bilaterally Cardio: COMMON NORMALS: regular rate and regular rhythm RATE: regular rate RHYTHM: regular rhythm Extremity: COMMON NORMALS: normal to inspection, full ROM and capillary refill normal Neuro: COMMON NORMALS: patient oriented x3 and no focal motor deficits Psych: COMMON NORMALS: Normal thought process present and speech normal APPEARANCE: Yes disheveled ATTITUDE: Yes evasive SPEECH: Yes normal speech MOOD & AFFECT: Yes irritable THOUGHT PROCESS: Normal thought process present Skin: COMMON NORMALS: no rashes or lesions noted GENERAL SKIN EXAM: no rashes or lesions noted Course Vital Signs: Vital signs: Vital Signs Temperature 97.6 F 01/18/25 20:02 Pulse Rate 80 01/19/25 04:28 Respiratory Rate 15 01/19/25 04:28 Blood Pressure 133/72 01/19/25 04:28 Pulse Oximetry 96 01/19/25 04:28 Oxygen Delivery Me thod Room Air 01/18/25 20:02 MDM - Psych Lab Data 01/18/25 20:22 01/18/25 20:50 Radiology Impressions Chest X-Ray 01/18/25 20:22 IMPRESSION: No acute findings. Laboratory Results WBC 5.10 10^3/uL (3.29-11.43) 01/18/25 20: RBC 3.40 10^6/uL (3.85-5.65) L 01/18/25 20: Hgb 10.40 g/dL (11.27-16.99) L 01/18/25 20: Hct 33.0 % (36-47) L 01/18/25 20: MCV 97.1 fl (85-98) 01/18/25: MCH 30.6 pg (27-33) 01/18/25: MCHC 31.5 g/dL (30-55) 01/18/25: RDW 13.7 % (12.1-15.1) 01/18/25: Plt Count 206 10^3/cmm (157-399) 01/18/25: MPV 11.8 fL (7.4-10.4) H 01/18/25 20: Neut % (Auto) 49.2 % 01/18/25 20: Lymph % (Auto) 35.9 % 01/18/25 20: [place] % (Auto) 11.6 % 01/18/25 20: Eos % (Auto) 2.5 % 01/18/25: Baso % (Auto) 0.6 % 01/18/25: Neut # (Auto) 2.51 10^3/uL (1.8-7.7) 01/18/25: Lymph # (Auto) 1.8 10^3/uL (0.8-4.8) 01/18/25: [place] # (Auto) 0.6 10^3/uL (0.2-0.9) 01/18/25: Eos # (Auto) 0.1 10^3/uL (0.0-0.8) 01/18/25: Baso # (Auto) 0.0 10^3/uL (0.0-0.1) 01/18/25: Nucleated RBC % (auto) 0 % 01/18/25: Nucleated RBCs # 0.0 /100WBC 01/18/25 20: Sodium 143 mmol/L (136-145) 01/18/25 20:50 Potassium 4.5 mmol/L (3.5-5.1) 01/18/25 20:50 Chloride 106 mmol/L (98-107) 01/18/25 20:50 Carbon Dioxide 28 mmol/L (22-29) 01/18/25 20:50 Anion Gap 13.5 (5-19) 01/18/25 20:50 BUN 16 mg/dL (6-20) 01/18/25 20:50 Creatinine 0.7 mg/dL (0.5-0.9) 01/18/25 20:50 GFR Calculation 87.9 mL/min (90-130) L 01/18/25 20:50 Glucose 87 mg/dL (65-115) 01/18/25 20:50 Calculated Osmolality 297 mOsm/kg (285-295) H 01/18/25 20:50 Calcium 8.7 mg/dL (8.5-10.5) 01/18/25 20:50 Total Bilirubin 0.2 mg/dL (0.15-1.2) 01/18/25 20:50 AST 17 U/L (0-32) 01/18/25 20:50 ALT 11 U/L (0-33) 01/18/25 20:50 Alkaline Phosphatase 96 U/L (35-105) 01/18/25 20:50 Total Protein 6.6 g/dL (6.6-8.7) 01/18/25 20:50 Albumin 4.0 g/dL (3.5-5.2) 01/18/25 20:50 Globulin 2.6 g/dL (1.3-4.6) 01/18/25 20:50 Urine Color Yellow (Yellow) 01/18/25 20:18 Urine Appearance Clear (CLEAR) 01/18/25 20:18 Urine pH 8.0 (5-7) A 01/18/25 20:18 Ur Specific [place] 1.019 (1.005-1.030) 01/18/25 20:18 Urine Protein Negative (Negative) 01/18/25 20:18 Urine Glucose (UA) Negative (Normal) 01/18/25 20:18 Urine Ketones Negative (Negative) 01/18/25 20: Urine Blood Negative (Negative) 01/18/25: Urine Nitrate Negative (Negative) 01/18/25 20:18 Urine Bilirubin Negative (Negative) 01/18/25 20:18 Urine Urobilinogen 1.0 mg/dL (Negative) 01/18/25 20:18 Ur Leukocyte Esterase Negative (Negative) 01/18/25 20:18 Urine RBC 0-2 /hpf (0-2) 01/18/25 20:18 Urine WBC 0-5 /hpf (0-5) 01/18/25 20:18 Ur Squamous Epith Cells 0-5 /hpf (0-5) 01/18/25 20:18 Amorphous Sediment Not Reportable 01/18/25 20:18 Urine Bacteria None seen /hpf (NONE) 01/18/25 20:18 Hyaline Casts 0.40 /lpf 01/18/25 20:18 Salicylates < 0.3 mg/dL (3-10) L 01/18/25 20:50 Urine Opiates Screen Negative ng/mL (Negative) 01/18/25 20:18 Acetaminophen < 5.0 ug/mL (10-30) L 01/18/25 20:50 Ur Barbiturates Screen Negative ng/mL (Negative) 01/18/25 20:18 Ur Phencyclidine Scrn Negative ng/mL (Negative) 01/18/25 20:18 Ur Amphetamines Screen Positive ng/mL (Negative) H 01/18/25 20:18 U Benzodiazepines Scrn Negative ng/mL (Negative) 01/18/25 20:18 Urine Cocaine Screen Negative ng/mL (Negative) 01/18/25 20:18 U Marijuana (THC) Screen Negative ng/mL (Negative) 01/18/25 20:18 Ethyl Alcohol < 10 mg/dL (0-10) 01/18/25 20:50 Influenza A (PCR) Negative (Negative) 01/18/25 20:18 Influenza Type B (PCR) Negative (Negative) 01/18/25 20:18 RSV (PCR) Negative (Negative) 01/18/25 20:18 SARS-CoV-2 (PCR) Negative (Negative) 01/18/25 20:18 Discharge Plan Discharge Patient Disposition: Home Clinical Impression: Depression, Drug-induced psychotic disorder Condition: Stable Prescriptions: No Action cetirizine [All Day Allergy (cetirizine)] 10 mg tablet 10 mg PO DAILY PRN (Reason: allergy symptoms) Qty: 30 0RF fluticasone propionate [Children's Flonase Allergy Rlf] 50 mcg/actuation spray,suspension 1 spray intranasal DAILY Qty: 16 0RF Rx Instructions: administer into each nostril polyethylene glycol 3350 [Miralax] 17 gram/dose powder 4 g PO DAILY PRN (Reason: constipation) Qty: 119 1RF ibuprofen 800 mg tablet 800 mg PO TID hydroxyzine pamoate 25 mg capsule 25 mg PO BEDTIME 30 Days Qty: 30 0RF metoprolol tartrate 25 mg tablet 25 mg PO DAILY 30 Days Qty: 30 1RF duloxetine [Cymbalta] 30 mg capsule,delayed release(DR/EC) 30 mg PO DAILY Qty: 30 1RF Rx Instructions: along with 60mg to=90mg total. duloxetine 60 mg capsule,delayed release(DR/EC) 60 mg PO DAILY 30 Days Qty: 30 1RF Rx Instructions: along with 30mg to=90mg total. pregabalin 100 mg capsule 100 mg PO BID 30 Days Qty: 60 0RF lurasidone 40 mg tablet 40 mg PO 1900 30 Days Qty: 30 1RF Rx Instructions: take with food. 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 [employer] Documented by User: Lauro Harrell DO 01/19/25 05:04 HPI - Psych General: Chief Complaint: Psychiatric Symptoms Stated Complaint: SI Time Seen by Provider: 01/18/25 20:00 Related Data Home Medications ?Medication ?Instructions ?Recorded ?Confirmed ibuprofen 800 mg tablet 800 mg PO TID 12/23/24 01/14/25 Previous Rx's ?Medication ?Instructions ?Recorded polyethylene glycol 3350 17 4 g PO DAILY PRN constipation #119 12/08/24 gram/dose oral powder (Miralax) grams buprenorphine HCl 8 mg sublingual 8 mg sublingual BID 30 days #60 12/26/24 tablet tabs duloxetine 30 mg capsule,delayed 30 mg PO DAILY #30 caps 12/26/24 release (Cymbalta) duloxetine 60 mg capsule,delayed 60 mg PO DAILY 30 days #30 caps 12/26/24 release hydroxyzine pamoate 25 mg capsule 25 mg PO BEDTIME 30 days #30 caps 12/26/24 lurasidone 40 mg tablet 40 mg PO 1900 30 days #30 tabs 12/26/24 metoprolol tartrate 25 mg tablet 25 mg PO DAILY 30 days #30 tabs 12/26/24 pregabalin 100 mg capsule 100 mg PO BID 30 days #60 caps 12/26/24 cetirizine 10 mg tablet (All Day 10 mg PO DAILY PRN allergy 01/14/25 Allergy (cetirizine)) symptoms #30 tabs fluticasone propionate 50 1 spray intranasal DAILY #16 grams 01/14/25 mcg/actuation nasal spray,suspension (Children's Flonase Allergy Relief) Allergies Allergy/AdvReac Type Severity Reaction Status Date / Time citalopram (From Celexa) Allergy cant pee Verified 01/14/25 18:07 codeine Allergy stomach Verified 01/14/25 18:07 upset morphine Allergy stomach Verified 01/14/25 18:07 upset PFSH ED PFSH: Medical History BRAEDEN (generalized anxiety disorder) Endocarditis Asthma COPD (chronic obstructive pulmonary disease) Dyslipidemia Hep C w/ coma, chronic Anxiety Chronic pain Surgical History History of ankle surgery History of abdominal surgery Social History Smoking and tobacco/nicotine status: current every day tobacco/nicotine user Alcohol intake: former Substance/Drug Use: former Course Vital Signs: Vital signs: Vital Signs Temperature 97.6 F 01/18/25 20:02 Pulse Rate 80 01/19/25 04:28 Respiratory Rate 15 01/19/25 04:28 Blood Pressure 133/72 01/19/25 04:28 Pulse Oximetry 96 01/19/25 04:28 Oxygen Delivery Me thod Room Air 01/18/25 20:02 MDM - Psych Medical Decision Making 54-year-old female checked out to me at shift change. She evidently was caught shoplifting in [employer] last evening. She was brought in by police, she was making suicidal statements at that point. She has been in the ER now for 8.5 hours. She is no longer suicidal. She does not wish to harm herself or anyone else. Medically, she is quite stable. She is eating pudding currently. She will be allowed discharge at this point. Lab Data 01/18/25 20:22 01/18/25 20:50 Radiology Impressions Chest X-Ray 01/18/25 20:22 IMPRESSION: No acute findings. Laboratory Results WBC 5.10 10^3/uL (3.29-11.43) 01/18/25 20:22 RBC 3.40 10^6/uL (3.85-5.65) L 01/18/25 20:22 Hgb 10.40 g/dL (11.27-16.99) L 01/18/25 20:22 Hct 33.0 % (36-47) L 01/18/25 20:22 MCV 97.1 fl (85-98) 01/18/25 20:22 MCH 30.6 pg (27-33) 01/18/25 20:22 MCHC 31.5 g/dL (30-55) 01/18/25 20:22 RDW 13.7 % (12.1-15.1) 01/18/25 20:22 Plt Count 206 10^3/cmm (157-399) 01/18/25 20:22 MPV 11.8 fL (7.4-10.4) H 01/18/25 20:22 Neut % (Auto) 49.2 % 01/18/25 20:22 Lymph % (Auto) 35.9 % 01/18/25 20:22 [place] % (Auto) 11.6 % 01/18/25 20:22 Eos % (Auto) 2.5 % 01/18/25 20:22 Baso % (Auto) 0.6 % 01/18/25 20:22 Neut # (Auto) 2.51 10^3/uL (1.8-7.7) 01/18/25 20:22 Lymph # (Auto) 1.8 10^3/uL (0.8-4.8) 01/18/25 20:22 [place] # (Auto) 0.6 10^3/uL (0.2-0.9) 01/18/25 20:22 Eos # (Auto) 0.1 10^3/uL (0.0-0.8) 01/18/25 20: Baso # (Auto) 0.0 10^3/uL (0.0-0.1) 01/18/25 20:22 Nucleated RBC % (auto) 0 % 01/18/25 20: Nucleated RBCs # 0.0 /100WBC 01/18/25 20:22 Sodium 143 mmol/L (136-145) 01/18/25 20:50 Potassium 4.5 mmol/L (3.5-5.1) 01/18/25 20:50 Chloride 106 mmol/L (98-107) 01/18/25 20:50 Carbon Dioxide 28 mmol/L (22-29) 01/18/25 20:50 Anion Gap 13.5 (5-19) 01/18/25 20:50 BUN 16 mg/dL (6-20) 01/18/25 20:50 Creatinine 0.7 mg/dL (0.5-0.9) 01/18/25 20:50 GFR Calculation 87.9 mL/min (90-130) L 01/18/25 20:50 Glucose 87 mg/dL (65-115) 01/18/25 20:50 Calculated Osmolality 297 mOsm/kg (285-295) H 01/18/25 20:50 Calcium 8.7 mg/dL (8.5-10.5) 01/18/25 20:50 Total Bilirubin 0.2 mg/dL (0.15-1.2) 01/18/25 20:50 AST 17 U/L (0-32) 01/18/25 20:50 ALT 11 U/L (0-33) 01/18/25 20:50 Alkaline Phosphatase 96 U/L (35-105) 01/18/25 20:50 Total Protein 6.6 g/dL (6.6-8.7) 01/18/25 20:50 Albumin 4.0 g/dL (3.5-5.2) 01/18/25 20:50 Globulin 2.6 g/dL (1.3-4.6) 01/18/25 20:50 Urine Color Yellow (Yellow) 01/18/25 20:18 Urine Appearance Clear (CLEAR) 01/18/25 20:18 Urine pH 8.0 (5-7) A 01/18/25 20:18 Ur Specific [place] 1.019 (1.005-1.030) 01/18/25 20:18 Urine Protein Negative (Negative) 01/18/25 20:18 Urine Glucose (UA) Negative (Normal) 01/18/25 20:18 Urine Ketones Negative (Negative) 01/18/25 20:18 Urine Blood Negative (Negative) 01/18/25 20:18 Urine Nitrate Negative (Negative) 01/18/25 20:18 Urine Bilirubin Negative (Negative) 01/18/25 20:18 Urine Urobilinogen 1.0 mg/dL (Negative) 01/18/25 20:18 Ur Leukocyte Esterase Negative (Negative) 01/18/25 20:18 Urine RBC 0-2 /hpf (0-2) 01/18/25 20:18 Urine WBC 0-5 /hpf (0-5) 01/18/25 20:18 Ur Squamous Epith Cells 0-5 /hpf (0-5) 01/18/25 20:18 Amorphous Sediment Not Reportable 01/18/25 20:18 Urine Bacteria None seen /hpf (NONE) 01/18/25 20:18 Hyaline Casts 0.40 /lpf 01/18/25 20:18 Salicylates < 0.3 mg/dL (3-10) L 01/18/25 20:50 Urine Opiates Screen Negative ng/mL (Negative) 01/18/25 20:18 Acetaminophen < 5.0 ug/mL (10-30) L 01/18/25 20:50 Ur Barbiturates Screen Negative ng/mL (Negative) 01/18/25 20:18 Ur Phencyclidine Scrn Negative ng/mL (Negative) 01/18/25 20:18 Ur Amphetamines Screen Positive ng/mL (Negative) H 01/18/25 20:18 U Benzodiazepines Scrn Negative ng/mL (Negative) 01/18/25 20:18 Urine Cocaine Screen Negative ng/mL (Negative) 01/18/25 20:18 U Marijuana (THC) Screen Negative ng/mL (Negative) 01/18/25 20:18 Ethyl Alcohol < 10 mg/dL (0-10) 01/18/25 20:50 Influenza A (PCR) Negative (Negative) 01/18/25 20:18 Influenza Type B (PCR) Negative (Negative) 01/18/25 20:18 RSV (PCR) Negative (Negative) 01/18/25 20:18 SARS-CoV-2 (PCR) Negative (Negative) 01/18/25 20:18 All radiology interpretation(s) finalized by discharge Discharge Plan Discharge Patient Disposition: Home Clinical Impression: Depression, Drug-induced psychotic disorder Condition: Stable Prescriptions: No Action cetirizine [All Day Allergy (cetirizine)] 10 mg tablet 10 mg PO DAILY PRN (Reason: allergy symptoms) Qty: 30 0RF fluticasone propionate [Children's Flonase Allergy Rlf] 50 mcg/actuation spray,suspension 1 spray intranasal DAILY Qty: 16 0RF Rx Instructions: administer into each nostril polyethylene glycol 3350 [Miralax] 17 gram/dose powder 4 g PO DAILY PRN (Reason: constipation) Qty: 119 1RF ibuprofen 800 mg tablet 800 mg PO TID hydroxyzine pamoate 25 mg capsule 25 mg PO BEDTIME 30 Days Qty: 30 0RF metoprolol tartrate 25 mg tablet 25 mg PO DAILY 30 Days Qty: 30 1RF duloxetine [Cymbalta] 30 mg capsule,delayed release(DR/EC) 30 mg PO DAILY Qty: 30 1RF Rx Instructions: along with 60mg to=90mg total. duloxetine 60 mg capsule,delayed release(DR/EC) 60 mg PO DAILY 30 Days Qty: 30 1RF Rx Instructions: along with 30mg to=90mg total. pregabalin 100 mg capsule 100 mg PO BID 30 Days Qty: 60 0RF lurasidone 40 mg tablet 40 mg PO 1900 30 Days Qty: 30 1RF Rx Instructions: take with food. 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
[2025-01-18] MEDS: acetaminophen 500 mg Tablet PO (21:42)
--- NOTE | 2025-01-19 04:19 | PC.NURSE ---
pt states she is no longer suicidal. pt states she was only suicidal because she thought she was getting arrested and did not want to go to [facility]. notified.
[2025-01-19 04:28] VITALS: BP 133/72; PULSE 80; RESP 15; O2SAT 96
== END 2025-01-19 04:29 | disposition home or self-care (01) ==
PROVIDERS: Student in an Organized Health Care Education/Training Program; Emergency Provider Emergency Medicine
DX: F32.A Depression, unspecified (principal); F19.959 Other psychoactive substance use, unspecified with psychoactive substance-induced psychotic disorder, unspecified; E78.5 Hyperlipidemia, unspecified; J44.9 Chronic obstructive pulmonary disease, unspecified; Z72.0 Tobacco use; Z11.52 Encounter for screening for COVID-19
CPT/HCPCS: 36415; 71045; 80053; 80306; 80307; 81001; 85025; 87637; 93005; 99285; J9999